=== PATIENT | male | born 1960 | race Caucasian/White ===

== ENCOUNTER 2016-05-07 15:07 | Inpatient (IN) | payer MEDICAID, OTHER ==
[~2016-05-07] VITALS: Ht 170.2 cm; Wt 85.0 kg
[2016-05-07 15:10] VITALS: Ht 170.2 cm; Wt 85.0 kg
[2016-05-07] MEDS ORDERED: KETOROLAC 30 MG INJ IV STA (15:26)
[2016-05-07] MEDS ORDERED: CEFTRIAXONE 1 GM/50 ML (PMX) 50 ML IVPB STA (15:26)
[2016-05-07] MEDS ORDERED: SODIUM CHLORIDE 0.9% 1L BAG IV* STA (15:26)
[2016-05-07] MEDS ORDERED: VANCOMYCIN 1 GM (PMX) 250 ML IVPB ONE (15:30)
[2016-05-07] MEDS ORDERED: DICLOFENAC SODIUM 37.5 MG/ML VIAL IV STA (16:25)
[2016-05-07 16:28] LABS: ADD SCAN DIFF NO
[2016-05-07 16:32] LABS: ADD UMIC YES; URINE BILIRUBIN (Dip) NEGATIVE (NEGATIVE); URINE BLOOD (Dip) NEGATIVE (NEGATIVE); URINE COLOR LT. YELLOW (YELLOW); URINE GLUCOSE (Dip) NEGATIVE (NEGATIVE); URINE KETONES (Dip) NEGATIVE (NEGATIVE); URINE LEUKOCYTE ESTERASE (Dip) 1+ (NEGATIVE); URINE NITRITE (Dip) NEGATIVE (NEGATIVE); URINE TOTAL PROTEIN (Dip) NEGATIVE (NEGATIVE); URINE UROBILINOGEN (Dip) 0.2 E.U./dL (0.1-1.0)
[2016-05-07 16:34] LABS: ABNORMAL IP MESSAGE 1; BASOPHILS % 0.2 % (0.0-2.0); EOSINOPHILS # 0.1 10^3/ul (0.0-0.5); EOSINOPHILS % 0.2 % (0.0-7.0); HEMATOCRIT 41.8 % (42.0-52.0); HEMOGLOBIN 14.6 g/dl (14.0-18.0); LYMPHOCYTES # 2.7 10^3/ul (0.8-2.9); LYMPHOCYTES % 11.7 % (15.0-51.0); MEAN CORPUSCULAR HGB CONC 34.9 g/dl (32.0-37.0); MEAN CORPUSCULAR VOLUME 88.7 fl (82.0-101.0); MEAN PLATELET VOLUME 9.9 fl (7.4-10.4); MONOCYTE # 1.5 10^3/ul (0.3-0.9); MONOCYTES % 6.6 % (0.0-11.0); NEUTROPHIL # 18.6 10^3/ul (1.6-7.5); NEUTROPHILS % 80.9 % (39.0-77.0); PLATELET COUNT 280 10^3/UL (140-415); RED BLOOD COUNT 4.71 10^6/ul (4.70-6.10); RED CELL DISTRIBUTION WIDTH 13.2 % (11.5-14.5)
--- NOTE | 2016-05-07 16:43 | RADRPT ---
PROCEDURE: XR Hand. CLINICAL INDICATION: Right hand pain and swelling. TECHNIQUE: Three views. Frontal, lateral, and oblique images of the right hand were obtained. COMPARISON: No prior studies are available for comparison. 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 There is no other fracture and the re is no dislocation. There is diffuse soft tissue swelling. Articular surfaces are intact. There is no lytic or blastic lesion. There is a ring on the fourth finger which the the patient was unable to remove. There is no other r adiopaque foreign body. IMPRESSION: 1. 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 2. No fracture or dislocation. 3. Diffuse soft tissue swelling. 4. Ring on the fourth finger which the patient was unable to remove. 5. No other radiopaque foreign body. RPTAT: QQ .Niall Camargo MD, Date Time Electronically viewed and signed by .Niall Camargo MD, on 05/07/2016 16:42 .R/
[2016-05-07 16:44] LABS: ALBUMIN 4.5 g/dl (3.3-4.9); CHLORIDE 98 mmol/L (97-110)
[2016-05-07 16:45] LABS: INR 1.12; POTASSIUM 3.8 mmol/L (3.5-5.1); PROTIME 14.4 Sec (12.2-14.2); PT RATIO 1.1; SODIUM 139 mmol/L (135-144)
[2016-05-07 16:47] LABS: ALBUMIN/GLOBULIN RATIO 1.45; ANION GAP 20 (8-16); BACTERIA,URINE FEW; BILIRUBIN,INDIRECT 1.2 mg/dl (0-1.1); BILIRUBIN,TOTAL 1.2 mg/dl (0.2-1.3); CARBON DIOXIDE 25 mmol/L (21-31); CREATININE 0.85 mg/dl (0.61-1.24); TOTAL PROTEIN 7.6 g/dl (6.1-8.1); TRANSITIONAL EPI CELLS,URINE OCCASIONAL; URINE RBCS NONE SEEN /HPF ([, 0])
[2016-05-07 16:48] LABS: ALANINE AMINOTRANSFERASE 64 IU/L (13-69); ALKALINE PHOSPHATASE 91 IU/L (42-121); ASPARTATE AMINO TRANSFERASE 131 IU/L (15-46); BLOOD UREA NITROGEN 16 mg/dl (7-20); CALCIUM 9.4 mg/dl (8.4-10.2); GLUCOSE 96 mg/dl (70-220)
[2016-05-07 16:57] LABS: PARTIAL THROMBOPLASTIN TIME 28.8 Sec (25.0-35.0)
[2016-05-07] MEDS ORDERED: ALPRAZOLAM 0.25 MG TAB PO ONE (17:00)
[2016-05-07 17:07] LABS: TROPONIN-I < 0.012 ng/ml (0.00-0.12)
[2016-05-07] MEDS ORDERED: ACETAMINOPHEN 325 MG TAB PO PRN ×2 (18:00→20:30)
[2016-05-07] MEDS ORDERED: ONDANSETRON 4 MG INJ IV PRN ×2 (18:00→20:30)
--- NOTE | 2016-05-07 19:29 | ERA ---
ER Documentation Chief Complaint Date/Time DATE: 05/07/16 TIME: 19:24 Chief Complaint BIB RA PT with R hand pain and swelling X 2 days, denies fevers. HPI This 55-year-old male presents with right hand pain and swelling for the last 2 days and is increasing. States that he injected methamphetamines into an area around that hand but thinks he did not go well because he did not get high from it and thinks it went intramuscularly. Is increasing hand swelling and also has pain tracking up his arm. Denies any fevers or chills. ROS All systems reviewed and are negative except as per history of present illness. Allergies Allergies: Coded Allergies: ketorolac (Verified Allergy, Intermediate, rash, 05/07/16) sumatriptan (Verified Allergy, Mild, 05/07/16) Phenothiazines (Unverified Allergy, Unknown, 05/07/16) PMhx/Soc History of Surgery: Yes (Topnsillectomy.) Anesthesia Reaction: No Hx Neurological Disorder: No Hx Respiratory Disorders: No Hx Cardiac Disorders: No Hx Psychiatric Problems: Yes (Anxiety, ADHD) Hx Miscellaneous Medical Probl: No Hx Alcohol Use: No Hx Substance Use: Yes (Meth) Hx Tobacco Use: Yes Smoking Status: Light tobacco smoker Physical Exam Vitals Vital Signs Date Time Temp Pulse Resp B/P Pulse Ox O2 Delivery O2 Flow Rate FiO2 05/07/16 15:10 98.3 110 18 118/80 96 Physical Exam Const: [] Head: Atraumatic Eyes: Normal Conjunctiva ENT: Normal External Ears, Nose and Mouth. Neck: Full range of motion..~ No meningismus. Resp: Clear to auscultation bilaterally Cardio: Regular rate and rhythm, no murmurs Abd: Soft, non tender, non distended. Normal bowel sounds Skin: No petechiae or rashes Back: No midline or flank tenderness Ext: No cyanosis, or edema Neur: Awake and alert Psych: Normal Mood and Affect Result Diagram: 05/07/16 1610 05/07/16 1610 Results 24 hrs Laboratory Tests Test 05/07/16 16:10 Activated Partial Thromboplast Time 28.8Sec Alanine Aminotransferase (ALT/SGPT) 64IU/L Albumin 4.5g/dl Albumin/Globulin Ratio 1.45 Alkaline Phosphatase 91IU/L Anion Gap 20 Aspartate Amino Transf (AST/SGOT) 131IU/L Basophils # 0.010^3/ul Basophils % 0.2% Blood Urea Nitrogen 16mg/dl Calcium Level 9.4mg/dl Carbon Dioxide Level 25mmol/L Chloride Level 98mmol/L Creatinine 0.85mg/dl Direct Bilirubin 0.00mg/dl Eosinophils # 0.110^3/ul Eosinophils % 0.2% Globulin 3.10g/dl Glucose Level 96mg/dl Hematocrit 41.8% Hemoglobin 14.6g/dl INR International Normalized Ratio 1.12 Indirect Bilirubin 1.2mg/dl Lactic Acid Level 1.7mmol/L Lymphocytes # 2.710^3/ul Lymphocytes % 11.7% Mean Corpuscular Hemoglobin 31.0pg Mean Corpuscular Hemoglobin Concent 34.9g/dl Mean Corpuscular Volume 88.7fl Mean Platelet Volume 9.9fl Monocytes # 1.510^3/ul Monocytes % 6.6% Neutrophils # 18.610^3/ul Neutrophils % 80.9% Nucleated Red Blood Cells # 0.010^3/ul Nucleated Red Blood Cells % 0.0/100WBC Platelet Count 15281^3/UL Potassium Level 3.8mmol/L Prothrombin Time 14.4Sec Prothrombin Time Ratio 1.1 Red Blood Count 4.7110^6/ul Red Cell Distribution Width 13.2% Sodium Level 139mmol/L Total Bilirubin 1.2mg/dl Total Protein 7.6g/dl Troponin I < 0.012ng/ml Urine Bacteria FEW Urine Bilirubin NEGATIVE Urine Clarity CLEAR Urine Color LT. YELLOW Urine Glucose NEGATIVE% Urine Hemoglobin NEGATIVE Urine Ketones NEGATIVE Urine Leukocyte Esterase 1+ Urine Microscopic RBC NONE SEEN/HPF Urine Microscopic WBC 10-25/HPF Urine Nitrite NEGATIVE Urine Specific [place] 1.010 Urine Total Protein NEGATIVE Urine Transitional Epithelial Cells OCCASIONAL Urine Urobilinogen 0.2 E.U./dL Urine pH 5.5 White Blood Count 23.010^3/ul Current Medications Medications (Trade) Dose Ordered Sig/Yared Route PRN Reason Start Time Stop Time Status Last Admin Dose Admin Sodium Chloride 2680 ml 2,680 ml BOLUS OVER 2 HOURS STAT IV* 05/07/16 15:26 05/07/16 15:29 DC 05/07/16 16:32 Vancomycin HCl 250 ml @ 125 mls/hr ONCE ONCE IVPB 05/07/16 15:30 05/07/16 17:29 DC 05/07/16 17:03 Ceftriaxone Sodium (Rocephin) 50 ml @ 100 mls/hr ONCE STAT IVPB 05/07/16 15:26 05/07/16 15:55 DC 05/07/16 16:32 Ketorolac Tromethamine (Toradol) 30 mg ONCE STAT IV 05/07/16 15:26 05/07/16 15:30 DC Diclofenac Sodium (Dyloject) 37.5 mg ONCE STAT IV 05/07/16 16:25 05/07/16 16:26 DC 05/07/16 16:32 Alprazolam (Xanax) 0.25 mg ONCE ONCE PO 05/07/16 17:00 05/07/16 17:01 DC 05/07/16 17:03 Procedures/MDM 55-year-old male with right hand cellulitis. I do not believe this is currently amenable to outpatient treatment. More important issues the patient refuses to remove his ring on his right ring finger. He absolutely refuses to use the ring cutter to get it off but he does not even want to take the ring off even though I informed him that he could lose his finger because of it. He does have very high white count as well as tachycardia on arrival. This technically gives him sepsis criteria. He was given vancomycin and Rocephin. He is also given IV fluids. Believe these interventions will prevent progression to septic shock although he will be monitored for this in the hospital.. Spoke with Dr. Hernandez will be admitting the patient to the medical surgical floor. Critical care time 33 minutes: This includes treatment of developing sepsis and possible limb threatening injury, careful fluid administration, immediate antibiotic administration, chart reviewed, discussion with patient admitting doctor, multiple visits the patient's bedside to reassess status and try to convince him to remove his ring. This does not include any billable procedures. Departure Diagnosis: Primary Impression: Sepsis due to cellulitis Additional Impression: Right arm cellulitis Condition: Serious WINNIE VELA DO May 07, 2016 19:29
[2016-05-07 20:00] VITALS: BP 122/55; PULSE 82; RESP 20
[2016-05-07] MEDS ORDERED: OLAN10TA7 PO (20:01)
[2016-05-07] MEDS ORDERED: TRAZ150T65 PO (20:02)
[2016-05-07] MEDS ORDERED: LORA-444 PO (20:02)
[2016-05-07] MEDS ORDERED: NORT75CA PO (20:03)
[2016-05-07] MEDS ORDERED: TEMA30CA6 PO (20:03)
[2016-05-07] MEDS ORDERED: GABA300C16 PO (20:03)
[2016-05-07] MEDS ORDERED: NACL 0.9% 3 ML SYG IV SCH (20:30)
[2016-05-07] MEDS ORDERED: NITROGLYCERIN (SL) 0.4 MG TAB SL PRN (20:30)
[2016-05-07] MEDS ORDERED: hydrALAzine 20 MG INJ IV PRN (20:30)
[2016-05-07] MEDS ORDERED: morphine 2 MG INJ IV PRN (20:30)
[2016-05-07] MEDS ORDERED: ALBUTEROL/IPRATROPIUM (NEB) 3 ML AMP HHN PRN (20:30)
[2016-05-07] MEDS ORDERED: DOCUSATE SODIUM 100 MG CAP PO PRN (20:30)
[2016-05-07] MEDS ORDERED: VANCOMYCIN IV PER PHARMACY XX SCH (20:30)
[2016-05-07] MEDS: SOD CHLORIDE 0.9% 1,000 ML IV SCH (21:31)
[2016-05-07] MEDS: GABAPENTIN 300 MG CAP PO SCH (21:31)
[2016-05-07] MEDS: traZODone 50 MG TAB PO SCH (21:31)
[2016-05-07] MEDS: OLANZAPINE 5 MG TAB PO SCH (21:31)
[2016-05-07] MEDS: HEPARIN 5,000 UNIT/0.5 ML SYG SC SCH (21:32)
[2016-05-07] MEDS: HYDROCODONE/APAP (5/325) TAB PO PRN (22:09)
[2016-05-07] MEDS: CEFEPIME 2GM/50 ML (PMX) 50 ML IVPB SCH (23:48)
[2016-05-07] MEDS: NORTRIPTYLINE 25 MG CAP PO SCH (23:49)
[2016-05-08] MEDS: PANTOPRAZOLE (EC) 40 MG TAB PO SCH (05:22)
[2016-05-08] MEDS: SOD CHLORIDE 0.9% 1,000 ML IV SCH ×3 (05:40→23:05)
--- NOTE | 2016-05-08 06:10 | HP ---
DATE OF ADMISSION: 05/07/2016 The patient was seen and examined by me on 05/07/2016 at 8:30 p.m. CHIEF COMPLAINT: Right hand pain. HISTORY OF PRESENT ILLNESS: A 55-year-old male with a past medical history of ADHD, anxiety and mili g abuse, who presents with right hand pain. The patient states the swelling and pain have been melba g on for the last 2 days. It has been getting worse in intensity. He does admit to injecting metham phetamine into the area around the hand. He feels like he did not get the normal high that he deisy lly gets and feels like he may have missed the artery and may have gone intramuscularly, and hence rissa nichols has the right hand pain and swelling. No fever or chills, no upper or lower GI bleeding, no nause a or vomiting, no diarrhea, no constipation. PAST MEDICAL HISTORY: As stated above. HOME MEDICATIONS: 1. Gabapentin 300 mg b.i.d. 2. Ativan 2 mg t.i.d. 3. Nortriptyline 75 mg at bedtime. 4. Zyprexa 10 mg at bedtime. 5. Restoril 30 mg at bedtime p.r.n. 6. Trazodone 150 mg at bedtime. ALLERGIES 1. TORADOL. 2. SUMATRIPTAN. 3. PHENOTHIAZINES. PAST SURGICAL HISTORY: Tonsillectomy in the past. FAMILY HISTORY: Noncontributory. SOCIAL HISTORY: He uses meth and smokes cigarettes. Denies any alcohol use. PHYSICAL EXAMINATION: VITAL SIGNS: Today T-max 98.3, pulse 110, respirations 18, blood pressure 118/80, saturating at 96% on room air. GENERAL: The patient is lying in bed, answering questions, in no acute distress. HEENT: Pupils are equal, round, and react to light. Extraocular muscles intact. NECK: Supple. No thyromegaly. LUNGS: Clear to auscultation bilaterally. CARDIOVASCULAR: S1, S2 heard. No rubs or gallops. ABDOMEN: Soft, nontender, nondistended. Normal bowel sounds. No rebound or guarding. MUSCULOSKELETAL: The right hand is red, swollen and tender to palpation on the dorsal aspect. Appe ars to be neurovascularly intact. Otherwise no lower extremity edema bilaterally. NEUROLOGIC: No focal deficits. LABORATORY: WBC 23.0, hemoglobin 14.6, hematocrit 41.8, platelets 280. Basic metabolic panel is no rmal. LFTs show an indirect bilirubin of 1.2 and AST of 131, but the rest of the LFTs are normal. Lactic acid is normal. UA shows 1+ leukocyte esterase positive, few bacteria, negative nitrites. X-ray of the right hand showed old amputation of the second distal phalanx proximally, but no fractu res or dislocation. There is diffuse soft tissue swelling. Ring on the 4th finger was unable to be removed. No other radiopaque foreign body. ASSESSMENT AND PLAN: A 55-year-old male coming in with right hand pain and swelling after trying to inject methamphetamine into the area, with signs of cellulitis. 1. Right hand pain with signs of cellulitis. Will start the patient on broad spectrum antibiotics, get an infectious disease consult. Follow up culture results. Check TSH, A1c, lipid panel. Tylen ol p.r.n. pain and fevers. Morphine and [place] p.r.n. pain. 2. History of ADHD and anxiety. Continue gabapentin, nortriptyline and Zyprexa medications, as wel l as trazodone. 3. Gastrointestinal prophylaxis. PPI. 4. Deep venous thrombosis prophylaxis. Heparin subcutaneously. Dictated By: JONNATHAN ARAGON Conf#: [id number] DID#: [id number]
[2016-05-08 06:30] LABS: ADD SCAN DIFF NO
[2016-05-08 06:48] LABS: BASOPHILS % 0.2 % (0.0-2.0); EOSINOPHILS # 0.1 10^3/ul (0.0-0.5); HEMATOCRIT 35.4 % (42.0-52.0); LYMPHOCYTES # 2.2 10^3/ul (0.8-2.9); LYMPHOCYTES % 17.7 % (15.0-51.0); MEAN CORPUSCULAR HGB CONC 33.9 g/dl (32.0-37.0); MEAN CORPUSCULAR VOLUME 91.5 fl (82.0-101.0); MEAN PLATELET VOLUME 10.7 fl (7.4-10.4); MONOCYTE # 1.1 10^3/ul (0.3-0.9); MONOCYTES % 8.7 % (0.0-11.0); NEUTROPHIL # 9.1 10^3/ul (1.6-7.5); NEUTROPHILS % 71.9 % (39.0-77.0); PLATELET COUNT 203 10^3/UL (140-415); RED BLOOD COUNT 3.87 10^6/ul (4.70-6.10); RED CELL DISTRIBUTION WIDTH 13.7 % (11.5-14.5); WHITE BLOOD COUNT 12.7 10^3/ul (4.8-10.8)
[2016-05-08 06:59] LABS: INR 1.2; PROTIME 15.3 Sec (12.2-14.2); PT RATIO 1.2
[2016-05-08 07:01] LABS: PARTIAL THROMBOPLASTIN TIME 31.8 Sec (25.0-35.0)
[2016-05-08 07:02] LABS: POTASSIUM 3.7 mmol/L (3.5-5.1)
[2016-05-08 07:05] LABS: CREATININE 0.77 mg/dl (0.61-1.24)
[2016-05-08 07:06] LABS: CALCIUM 8.1 mg/dl (8.4-10.2); CHOL/HDL RATIO 3.5 RATIO; MAGNESIUM 1.7 mg/dl (1.7-2.5); PHOSPHORUS 3.2 mg/dl (2.5-4.9)
[2016-05-08 08:16] LABS: THYROID STIMULATING HORMONE 0.899 MIU/L (0.465-4.680)
[2016-05-08 08:37] VITALS: BP 97/64; RESP 20
[2016-05-08] MEDS: CEFEPIME 2GM/50 ML (PMX) 50 ML IVPB SCH (09:14)
[2016-05-08] MEDS: GABAPENTIN 300 MG CAP PO SCH ×2 (09:14→20:04)
[2016-05-08] MEDS: HEPARIN 5,000 UNIT/0.5 ML SYG SC SCH ×2 (09:17→20:11)
[2016-05-08] MEDS: VANCOMYCIN 1 GM in NS 250 ML IVPB SCH ×2 (10:25→23:06)
--- NOTE | 2016-05-08 17:37 | CONS ---
Date/Time of Note Date/Time of Note DATE: 05/08/16 TIME: 17:34 Assessment/Plan Assessment/Plan Chief Complaint/Hosp Course R hand cellulitis 2 to drug injection Substance abuse Hx anxiety Abx: Vanco Cefepime Plan: Change Cefepime to Rocephin, continue Vanco, keep extremity elevated, may need hand surgery eval JAIME pt/staff JAIME Mao Problems: Consultation Date/Type/Reason Admit Date/Time May 07, 2016 at 17:59 Type of Consultation: ID Referring Provider: JONNATHAN CHRISTIANSON Social History Smoking Status: Light tobacco smoker Exam/Review of Systems Vital Signs Vitals Vital Signs Date Time Temp Pulse Resp B/P Pulse Ox O2 Delivery O2 Flow Rate FiO2 05/08/16 08:37 98.4 80 20 97/64 96 05/07/16 20:00 Room Air Intake and Output 05/07/16 05/07/16 05/08/16 15:00 23:00 07:00 Intake Total 50 ml 1500 ml Balance 50 ml 1500 ml Results Result Diagram: 05/08/1628 05/08/1628 Results 24 hrs Laboratory Tests Test 05/07/16 19:25 05/08/16 05:28 Lactic Acid Level 1.8 0.7 Activated Partial Thromboplast Time 31.8 Anion Gap 13 # Basophils # 0.0 Basophils % 0.2 Blood Urea Nitrogen 17 Calcium Level 8.1 L Carbon Dioxide Level 24 Chloride Level 108 # Cholesterol Level 144 Cholesterol/HDL Ratio 3.5 Creatinine 0.77 Eosinophils # 0.1 Eosinophils % 1.0 Free Thyroxine 0.95 Glucose Level 106 HDL Cholesterol 41 Hematocrit 35.4 L Hemoglobin 12.0 L Hemoglobin A1c 5.3 INR International Normalized Ratio 1.20 LDL Cholesterol, Calculated 89 Lymphocytes # 2.2 Lymphocytes % 17.7 Magnesium Level 1.7 Mean Corpuscular Hemoglobin 31.0 Mean Corpuscular Hemoglobin Concent 33.9 Mean Corpuscular Volume 91.5 Mean Platelet Volume 10.7 H Monocytes # 1.1 H Monocytes % 8.7 Neutrophils # 9.1 H Neutrophils % 71.9 Nucleated Red Blood Cells # 0.0 Nucleated Red Blood Cells % 0.0 Phosphorus Level 3.2 Platelet Count 203 # Potassium Level 3.7 Prothrombin Time 15.3 H Prothrombin Time Ratio 1.2 Red Blood Count 3.87 L Red Cell Distribution Width 13.7 Sodium Level 141 Thyroid Stimulating Hormone (TSH) 0.899 Triglycerides Level 69 White Blood Count 12.7 #H Medications Medications Current Medications Ondansetron HCl (Zofran Inj) 4 mg Q6H PRN IV NAUSEA AND/OR VOMITING; Start at 20:30 Acetaminophen (Tylenol Tab) 650 mg Q6H PRN PO PAIN LEVEL 1-3 OR FEVER; Start at 20:30 Acetaminophen/ Hydrocodone Bitart ([place] (5/325)) 1 tab Q6H PRN PO MODERATE PAIN LEVEL 4-6 Last administered on 05/07/16 22:09; Admin Dose 1 TAB; Start at 20:30 Morphine Sulfate (morphine) 2 mg Q4H PRN IV SEVERE PAIN LEVEL 7-10; Start 05/07 at 20:30 Docusate Sodium (Colace) 100 mg Q12H PRN PO CONSTIPATION; Start 05/07/16 at 20: 30 Sodium Biphosphate/ Sodium Phosphate (Fleet Enema) 133 ml DAILY PRN [place] CONSTIPATION; Start 05/07/16 at 20:30 Pantoprazole (Protonix Tab) 40 mg DAILY@06 PO Last administered on 05/08/16 05 :22; Admin Dose 40 MG; Start 05/08/16 at 06:00 Heparin Sodium (Porcine) (Heparin (5000 Units/0.5 ml)) 5,000 unit Q12 SC Last administered on 05/08/16 09:17; Admin Dose 5,000 UNIT; Start 05/07/16 at 21:00 Lorazepam 0.5 mg 0.5 mg Q6H PRN IV ANXIETY; Start 05/07/16 at 20:30 Sodium Chloride (NS) 1,000 ml @ 100 mls/hr Q10H IV Last administered on 21:31; Admin Dose 100 MLS/HR; Start 05/07/16 at 20:08 Vancomycin HCl (Vanco Iv Per Pharmacy) VANCOMYCIN PER PHARMACY NOTE XX ; Start 05/07/16 at 20:30 Hydralazine HCl (Apresoline) 10 mg Q6H PRN IV ELEVATED BLOOD PRESSURE; Start at 20:30 Clonidine (Catapres) 0.1 mg Q6H PRN PO ELEVATED BLOOD PRESSURE; Start 05/07/16 at 20:30 Nitroglycerin (Nitroglycerin (Sl Tab) 0.4 Mg) 1 tab Q5M PRN SL ANGINA; Start at 20:30 Gabapentin (Neurontin) 300 mg BID PO Last administered on 05/08/16 09:14; Admin Dose 300 MG; Start 05/07/16 at 21:00 Nortriptyline HCl (Aventyl) 75 mg HS PO Last administered on 05/07/16 23:49; Admin Dose 75 MG; Start 05/07/16 at 21:00 Olanzapine (Zyprexa) 10 mg QHS PO Last administered on 05/07/16 21:31; Admin Dose 10 MG; Start 05/07/16 at 21:00 Trazodone HCl 150 mg 150 mg QHS PO Last administered on 05/07/16 21:31; Admin Dose 150 MG; Start 05/07/16 at 21:00 Cefepime HCl 50 ml @ 100 mls/hr Q12 IVPB Last administered on 05/08/16 09:14 ; Admin Dose 100 MLS/HR; Start 05/07/16 at 21:00 Vancomycin HCl (Vancocin) 250 ml @ 125 mls/hr Q12H IVPB Last administered on 10:25; Admin Dose 125 MLS/HR; Start 05/08/16 at 11:00 Miscellaneous Information (*Rx Drug Level Order Reminder*) VANCOMYCIN TROUGH AT 1000 ONCE ONCE XX ; Start 05/09/16 at 10:00; Stop 05/09/16 at 10:01 MAURIZIO CHRISTENSEN NP May 08, 2016 17:37
[2016-05-08] MEDS: CEFTRIAXONE 1 GM/50 ML (PMX) 50 ML IVPB SCH (17:49)
[2016-05-08] MEDS: traZODone 50 MG TAB PO SCH (20:04)
[2016-05-08] MEDS: NORTRIPTYLINE 25 MG CAP PO SCH (20:05)
[2016-05-08] MEDS: OLANZAPINE 5 MG TAB PO SCH (20:15)
[2016-05-08] MEDS: HYDROCODONE/APAP (5/325) TAB PO PRN (20:15)
[2016-05-08 21:23] VITALS: BP 110/69; RESP 20
[2016-05-08] MEDS: ZOLPIDEM 5 MG TAB PO PRN (23:06)
[2016-05-09] MEDS: SOD CHLORIDE 0.9% 1,000 ML IV SCH ×2 (01:09→17:29)
[2016-05-09] MEDS: PANTOPRAZOLE (EC) 40 MG TAB PO SCH (05:18)
--- NOTE | 2016-05-09 06:38 | CONS ---
DATE OF ADMISSION: 05/07/2016 DATE OF CONSULTATION: INFECTIOUS DISEASE CONSULTATION I am seeing this patient for Dr. Kale Jones. REQUESTING PHYSICIAN: Dr. Jeanie Hernandez. HISTORY OF PRESENT ILLNESS: The patient is a 55-year-old white male who was admitted on with a chief complaint of right hand pain x2 days' duration. The patient injected amphetam wilmar into his hand and began having progressive swelling and pain. Upon arrival, his white count wa s originally 12,700, rapidly going to 23,000. The pulse was 110. The patient had x-ray of his red, diffusely swollen hand which revealed an old amputation of the distal phalanx of the second digit. The patient was admitted to the hospital and given intravenous vancomycin and cefepime. Subsequent ly, the cefepime was changed to ceftriaxone. The patient has been afebrile since admission. PAST MEDICAL HISTORY: ADHD, drug abuse, and tobacco use. ALLERGIES: HE HAS ALLERGIES TO 1. TORADOL. 2. SUMATRIPTAN. 3. PHENOTHIAZINES. PAST SURGICAL HISTORY: Include amputation of the distal phalanx of the right index finger. MEDICATIONS: Include 1. Gabapentin 300 mg twice a day. 2. Ativan 200 mg t.i.d. 3. Nortriptyline 75 mg daily. 4. Zyprexa 10 mg at bedtime. 5. Restoril 30 mg at bedtime. 6. Trazodone 150 mg at bedtime. REVIEW OF SYSTEMS: Cannot be obtained because the patient has received his bedtime medication and i s not in sufficient position of his faculties to give a reasonable history or review of systems. PHYSICAL EXAMINATION GENERAL: Reveals a grossly obese white male lying in bed, snoring initially and with his right hand elevated on a pillow. VITAL SIGNS: Blood pressure 110/69, pulse 80, respirations 20. He is afebrile. HEENT: The pupils are reactive. NECK: Obese. CHEST: Clear to auscultation. HEART: Regular. ABDOMEN: Obese, soft. EXTREMITIES: Reveal diffuse swelling and redness of the right hand. No drainage. There is no peda l edema. INITIAL IMPRESSION 1. Systemic inflammatory response. 2. Cellulitis, right hand. 3. Intravenous drug use. 4. Amphetamine abuse. 5. Psychosis, not otherwise specified. 6. Tobacco use. 7. Obesity. RECOMMENDATIONS: I agree with continuing the ceftriaxone and the vancomycin pending cultures and el evation of the right hand as much as possible and recommend surgical evaluation as he may need incis ion and drainage. Dictated By: Cally DOMINGUEZ/ERMA Conf#: [id number] DID#: [id number]
[2016-05-09] MEDS: LORAZEPAM 2 MG INJ IV PRN ×2 (08:12→15:37)
[2016-05-09] MEDS: GABAPENTIN 300 MG CAP PO SCH ×2 (08:14→20:00)
[2016-05-09] MEDS: HEPARIN 5,000 UNIT/0.5 ML SYG SC SCH ×2 (08:15→20:03)
[2016-05-09 08:26] VITALS: BP 117/73; RESP 19
[2016-05-09 10:46] LABS: ADD SCAN DIFF NO
[2016-05-09 10:58] LABS: BASOPHILS % 0.3 % (0.0-2.0); EOSINOPHILS # 0.2 10^3/ul (0.0-0.5); EOSINOPHILS % 1.3 % (0.0-7.0); HEMATOCRIT 37.1 % (42.0-52.0); HEMOGLOBIN 12.8 g/dl (14.0-18.0); LYMPHOCYTES % 17.2 % (15.0-51.0); MEAN CORPUSCULAR HEMOGLOBIN 30.8 pg (29.0-33.0); MEAN CORPUSCULAR HGB CONC 34.5 g/dl (32.0-37.0); MEAN CORPUSCULAR VOLUME 89.4 fl (82.0-101.0); MONOCYTES % 8.5 % (0.0-11.0); NEUTROPHIL # 8.5 10^3/ul (1.6-7.5); NEUTROPHILS % 72.1 % (39.0-77.0); PLATELET COUNT 229 10^3/UL (140-415); RED BLOOD COUNT 4.15 10^6/ul (4.70-6.10); WHITE BLOOD COUNT 11.8 10^3/ul (4.8-10.8)
[2016-05-09 11:01] LABS: POTASSIUM 3.9 mmol/L (3.5-5.1)
[2016-05-09 11:04] LABS: CREATININE 0.7 mg/dl (0.61-1.24)
[2016-05-09 11:05] LABS: CALCIUM 8.6 mg/dl (8.4-10.2)
[2016-05-09] MEDS: VANCOMYCIN 1 GM in NS 250 ML IVPB SCH (11:48)
[2016-05-09] MEDS: HYDROCODONE/APAP (5/325) TAB PO PRN ×2 (12:55→20:11)
--- NOTE | 2016-05-09 15:15 | PN ---
Date/Time of Note Date/Time of Note DATE: 05/09/16 TIME: 15:08 Assessment/Plan VTE Prophylaxis VTE Prophylaxis Intervention: heparin Lines/Catheters IV Catheter Type (from Nrs): Peripheral IV Urinary Cath still in place: No Assessment/Plan Assessment/Plan A 55-year-old male coming in with right hand pain and swelling after trying to inject methamphetamine into the area, with signs of cellulitis. 1. Sepsis 2/2 Right hand cellulitis 2/2 drug use 2. History of ADHD and anxiety. Continue gabapentin, nortriptyline and Zyprexa medications, as well as trazodone. 3. Multisubstance abuse (Amphetamines, tobacco) 4. Obesity PLAN * Continue abx per ID / appreciate input * Surgical consult * Continue supportive care * Amphetamine / Tobacco cessation counselling done and will continue to be reinforced throughout hospitalization. * farmworker consult for resources to help with drug abuse * Gastrointestinal prophylaxis. PPI. * Deep venous thrombosis prophylaxis. Heparin subcutaneously. Subjective 24 Hr Interval Summary Musculoskeletal: bone/joint pain, swelling Exam/Review of Systems Vital Signs Vitals Vital Signs Date Time Temp Pulse Resp B/P Pulse Ox O2 Delivery O2 Flow Rate FiO2 05/09/16 08:26 97.9 78 19 117/73 94 05/07/16 20:00 Room Air Intake and Output 05/08/16 05/08/16 05/09/16 15:00 23:00 07:00 Intake Total 300 ml 1580 ml 2130 ml Balance 300 ml 1580 ml 2130 ml Exam Constitutional: alert, obese, oriented Psych: no complaints Head: normocephalic Eyes: PERRL ENMT: mucosa pink and moist Neck: supple Respiratory: clear to auscultation Cardiovascular: nl pulses, regular rate and rhythm Gastrointestinal: bowel sounds, non-tender, soft Musculoskeletal: other (hand loks slightly better), swelling, No nl extremities to inspection Extremities: other (The right hand is red, swollen and tender to palpation on the dorsal aspect. Appears to be neurovascularly intact. Otherwise no lower extremity edema bilaterally.) Neurological: nl mental status, nl speech Results Result Diagram: 05/09/16 1030 05/09/16 1030 Results 24 hrs Laboratory Tests Test 05/09/16 10:30 Anion Gap 13 Basophils # 0.0 Basophils % 0.3 Blood Urea Nitrogen 11 Calcium Level 8.6 Carbon Dioxide Level 24 Chloride Level 108 Creatinine 0.70 Eosinophils # 0.2 Eosinophils % 1.3 Glucose Level 106 Hematocrit 37.1 L Hemoglobin 12.8 L Lymphocytes # 2.0 Lymphocytes % 17.2 Mean Corpuscular Hemoglobin 30.8 Mean Corpuscular Hemoglobin Concent 34.5 Mean Corpuscular Volume 89.4 Mean Platelet Volume 10.0 Monocytes # 1.0 H Monocytes % 8.5 Neutrophils # 8.5 H Neutrophils % 72.1 Nucleated Red Blood Cells # 0.0 Nucleated Red Blood Cells % 0.0 Platelet Count 229 Potassium Level 3.9 Red Blood Count 4.15 L Red Cell Distribution Width 13.0 Sodium Level 141 Vancomycin Level Trough 8.3 L White Blood Count 11.8 H Medications Medications Current Medications Ondansetron HCl (Zofran Inj) 4 mg Q6H PRN IV NAUSEA AND/OR VOMITING; Start at 20:30 Acetaminophen (Tylenol Tab) 650 mg Q6H PRN PO PAIN LEVEL 1-3 OR FEVER; Start at 20:30 Acetaminophen/ Hydrocodone Bitart ([place] (5/325)) 1 tab Q6H PRN PO MODERATE PAIN LEVEL 4-6 Last administered on 05/09/16 12:55; Admin Dose 1 TAB; Start at 20:30 Morphine Sulfate (morphine) 2 mg Q4H PRN IV SEVERE PAIN LEVEL 7-10; Start 05/07 at 20:30 Docusate Sodium (Colace) 100 mg Q12H PRN PO CONSTIPATION; Start 05/07/16 at 20: 30 Sodium Biphosphate/ Sodium Phosphate (Fleet Enema) 133 ml DAILY PRN [place] CONSTIPATION; Start 05/07/16 at 20:30 Pantoprazole (Protonix Tab) 40 mg DAILY@06 PO Last administered on 05/09/16 05 :18; Admin Dose 40 MG; Start 05/08/16 at 06:00 Heparin Sodium (Porcine) (Heparin (5000 Units/0.5 ml)) 5,000 unit Q12 SC Last administered on 05/09/16 08:15; Admin Dose 5,000 UNIT; Start 05/07/16 at 21:00 Lorazepam 0.5 mg 0.5 mg Q6H PRN IV ANXIETY Last administered on 05/09/16 08:12 ; Admin Dose 0.5 MG; Start 05/07/16 at 20:30 Sodium Chloride (NS) 1,000 ml @ 100 mls/hr Q10H IV Last administered on 23:05; Admin Dose 100 MLS/HR; Start 05/07/16 at 20:08 Vancomycin HCl (Vanco Iv Per Pharmacy) VANCOMYCIN PER PHARMACY NOTE XX ; Start 05/07/16 at 20:30 Hydralazine HCl (Apresoline) 10 mg Q6H PRN IV ELEVATED BLOOD PRESSURE; Start at 20:30 Clonidine (Catapres) 0.1 mg Q6H PRN PO ELEVATED BLOOD PRESSURE; Start 05/07/16 at 20:30 Nitroglycerin (Nitroglycerin (Sl Tab) 0.4 Mg) 1 tab Q5M PRN SL ANGINA; Start at 20:30 Gabapentin (Neurontin) 300 mg BID PO Last administered on 05/09/16 08:14; Admin Dose 300 MG; Start 05/07/16 at 21:00 Nortriptyline HCl (Aventyl) 75 mg HS PO Last administered on 05/08/16 20:05; Admin Dose 75 MG; Start 05/07/16 at 21:00 Olanzapine (Zyprexa) 10 mg QHS PO Last administered on 05/08/16 20:15; Admin Dose 10 MG; Start 05/07/16 at 21:00 Trazodone HCl 150 mg 150 mg QHS PO Last administered on 05/08/16 20:04; Admin Dose 150 MG; Start 05/07/16 at 21:00 Vancomycin HCl 250 ml @ 125 mls/hr Q12H IVPB Last administered on 05/09/16 11 :48; Admin Dose 125 MLS/HR; Start 05/08/16 at 11:00; Stop 05/09/16 at 18:00 Ceftriaxone Sodium 50 ml @ 100 mls/hr Q24H IVPB Last administered on 17:49; Admin Dose 100 MLS/HR; Start 05/08/16 at 18:00 Vancomycin HCl/ Sodium Chloride (Vancocin/NS) 250 ml @ 83.333 mls/ hr Q12H IVPB ; Start 05/09/16 at 23:00 Procedures Procedures PROCEDURE: XR Hand. CLINICAL INDICATION: Right hand pain and swelling. TECHNIQUE: Three views. Frontal, lateral, and oblique images of the right hand were obtained. COMPARISON: No prior studies are available for comparison. 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 There is no other fracture and there is no dislocation. There is diffuse soft tissue swelling. Articular surfaces are intact. There is no lytic or blastic lesion. There is a ring on the fourth finger which the the patient was unable to remove. There is no other radiopaque foreign body. IMPRESSION: 1. 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 2. No fracture or dislocation. 3. Diffuse soft tissue swelling. 4. Ring on the fourth finger which the patient was unable to remove. 5. No other radiopaque foreign body. RPTAT: QQ .Niall Camargo MD, Date Time Electronically viewed and signed by .Niall Camargo MD, MD on 05/07/2016 16:42 .R/ CC: WINNIE VELA BOLATITO M. May 09, 2016 15:15
[2016-05-09] MEDS: NICOTINE (21 MG/24 HR) PATCH TRANSDERM SCH (16:00)
[2016-05-09] MEDS: CEFTRIAXONE 1 GM/50 ML (PMX) 50 ML IVPB SCH (17:29)
[2016-05-09] MEDS: CHLORDIAZEPOXIDE 25 MG CAP PO SCH (17:45)
--- NOTE | 2016-05-09 18:10 | PN ---
DATE: 05/09/2016 SUBJECTIVE: The patient is alert, lying comfortably in bed. Complaining of right hand pain. He is in no distress. No fevers. ANTIMICROBIALS: 1. Vancomycin. 2. Rocephin. PHYSICAL EXAMINATION: GENERAL: Well-developed, middle-aged white man who is alert, in no distress. HEENT: Head atraumatic, normocephalic. Sclerae anicteric. Buccal mucosa pink. NECK: Supple. CHEST: Rise symmetrical. Breath sounds clear. HEART: S1, S2. ABDOMEN: Soft. Bowel tones present. EXTREMITIES: With right hand erythema and edema. ASSESSMENT: 1. Right hand cellulitis. 2. Systemic inflammatory response syndrome secondary to right hand cellulitis. 3. Polysubstance abuse. 4. Obesity. 5. History of psychiatric problems. PLAN: The patient remains stable. Continue present care, antibiotics. Keep right hand elevated on 3 pill ows at all times. Await for clinical improvement. May need hand surgery evaluation. Dictated By: MAURIZIO CHRISTENSEN GREEN INSPECTOR for BANDAR RICHARDSON/ERMA Conf#: [id number] DID#: [id number]
[2016-05-09] MEDS: OLANZAPINE 5 MG TAB PO SCH (20:01)
[2016-05-09] MEDS: traZODone 50 MG TAB PO SCH (20:01)
[2016-05-09] MEDS: NORTRIPTYLINE 25 MG CAP PO SCH (20:01)
[2016-05-09 20:28] VITALS: BP 118/74; RESP 18
[2016-05-09] MEDS ORDERED: CHLORDIAZEPOXIDE 25 MG CAP PO SCH (21:00)
[2016-05-09] MEDS: VANCOMYCIN 1.5 GM in SOD CHLORIDE 0.9% 250 ML IVPB SCH (22:10)
[2016-05-10] MEDS: ZOLPIDEM 5 MG TAB PO PRN (00:16)
[2016-05-10] MEDS: HYDROCODONE/APAP (5/325) TAB PO PRN (05:15)
[2016-05-10] MEDS: PANTOPRAZOLE (EC) 40 MG TAB PO SCH (05:15)
[2016-05-10 05:19] LABS: ADD SCAN DIFF NO
[2016-05-10 05:22] LABS: BASOPHIL # 0.1 10^3/ul (0.0-0.1); BASOPHILS % 0.6 % (0.0-2.0); EOSINOPHILS # 0.2 10^3/ul (0.0-0.5); EOSINOPHILS % 1.9 % (0.0-7.0); HEMATOCRIT 36.9 % (42.0-52.0); HEMOGLOBIN 12.9 g/dl (14.0-18.0); LYMPHOCYTES # 2.6 10^3/ul (0.8-2.9); LYMPHOCYTES % 29.6 % (15.0-51.0); MEAN CORPUSCULAR HEMOGLOBIN 31.2 pg (29.0-33.0); MEAN CORPUSCULAR VOLUME 89.1 fl (82.0-101.0); MEAN PLATELET VOLUME 10.1 fl (7.4-10.4); MONOCYTE # 0.8 10^3/ul (0.3-0.9); MONOCYTES % 8.4 % (0.0-11.0); NEUTROPHIL # 5.2 10^3/ul (1.6-7.5); NEUTROPHILS % 58.5 % (39.0-77.0); PLATELET COUNT 246 10^3/UL (140-415); RED BLOOD COUNT 4.14 10^6/ul (4.70-6.10); RED CELL DISTRIBUTION WIDTH 12.8 % (11.5-14.5); WHITE BLOOD COUNT 8.9 10^3/ul (4.8-10.8)
[2016-05-10 05:51] LABS: POTASSIUM 3.7 mmol/L (3.5-5.1)
[2016-05-10 05:53] LABS: CREATININE 0.74 mg/dl (0.61-1.24)
[2016-05-10 05:54] LABS: CALCIUM 8.4 mg/dl (8.4-10.2)
[2016-05-10 07:51] VITALS: BP 107/60; RESP 16
[2016-05-10] MEDS: SOD CHLORIDE 0.9% 1,000 ML IV SCH ×2 (08:08→18:07)
[2016-05-10] MEDS: CHLORDIAZEPOXIDE 25 MG CAP PO SCH ×3 (08:41→20:48)
[2016-05-10] MEDS: GABAPENTIN 300 MG CAP PO SCH ×2 (08:42→20:48)
[2016-05-10] MEDS: HEPARIN 5,000 UNIT/0.5 ML SYG SC SCH ×2 (08:43→20:50)
[2016-05-10] MEDS: NICOTINE (21 MG/24 HR) PATCH TRANSDERM SCH (08:47)
[2016-05-10] MEDS: LORAZEPAM 2 MG INJ IV PRN ×3 (09:07→22:36)
[2016-05-10] MEDS: VANCOMYCIN 1.5 GM in SOD CHLORIDE 0.9% 250 ML IVPB SCH ×2 (11:16→22:38)
--- NOTE | 2016-05-10 14:05 | CONS ---
Date/Time of Note Date/Time of Note DATE: 05/10/16 TIME: 14:04 Assessment/Plan Assessment/Plan Chief Complaint/Hosp Course SUBJECTIVE: The patient is alert, lying comfortably in bed. No fevers. ANTIMICROBIALS: 1. Vancomycin. 2. Rocephin. PHYSICAL EXAMINATION: GENERAL: Well-developed, middle-aged white man who is alert, in no distress. HEENT: Head atraumatic, normocephalic. Sclerae anicteric. Buccal mucosa pink. NECK: Supple. CHEST: Rise symmetrical. Breath sounds clear. HEART: S1, S2. ABDOMEN: Soft. Bowel tones present. EXTREMITIES: With right hand improved erythema and edema. ASSESSMENT: 1. Right hand cellulitis. 2. Systemic inflammatory response syndrome secondary to right hand cellulitis. 3. Polysubstance abuse. 4. Obesity. 5. History of psychiatric problems. PLAN: The patient remains stable. R hand looks better. Continue present care, antibiotics. Keep right hand elevated on 3 pillows at all times. DW pt Problems: Consultation Date/Type/Reason Admit Date/Time May 07, 2016 at 17:59 Initial Consult Date Type of Consultation: ID Referring Provider: JONNATHAN CHRISTIANSON Exam/Review of Systems Vital Signs Vitals Vital Signs Date Time Temp Pulse Resp B/P Pulse Ox O2 Delivery O2 Flow Rate FiO2 05/10/16 07:51 97.6 69 16 107/60 95 05/07/16 20:00 Room Air Intake and Output 05/09/16 05/09/16 05/10/16 15:00 23:00 07:00 Intake Total 250 ml 2740 ml 1180 ml Balance 250 ml 2740 ml 1180 ml Results Result Diagram: 05/10/16 0505 05/10/16 0505 Results 24 hrs Laboratory Tests Test 05/10/16 05:05 Anion Gap 16 Basophils # 0.1 Basophils % 0.6 Blood Urea Nitrogen 15 Calcium Level 8.4 Carbon Dioxide Level 25 Chloride Level 105 Creatinine 0.74 Eosinophils # 0.2 Eosinophils % 1.9 Glucose Level 87 Hematocrit 36.9 L Hemoglobin 12.9 L Lymphocytes # 2.6 Lymphocytes % 29.6 Mean Corpuscular Hemoglobin 31.2 Mean Corpuscular Hemoglobin Concent 35.0 Mean Corpuscular Volume 89.1 Mean Platelet Volume 10.1 Monocytes # 0.8 Monocytes % 8.4 Neutrophils # 5.2 Neutrophils % 58.5 Nucleated Red Blood Cells # 0.0 Nucleated Red Blood Cells % 0.0 Platelet Count 246 Potassium Level 3.7 Red Blood Count 4.14 L Red Cell Distribution Width 12.8 Sodium Level 142 White Blood Count 8.9 # Medications Medications Current Medications Ondansetron HCl (Zofran Inj) 4 mg Q6H PRN IV NAUSEA AND/OR VOMITING; Start at 20:30 Acetaminophen (Tylenol Tab) 650 mg Q6H PRN PO PAIN LEVEL 1-3 OR FEVER; Start at 20:30 Acetaminophen/ Hydrocodone Bitart ([place] (5/325)) 1 tab Q6H PRN PO MODERATE PAIN LEVEL 4-6 Last administered on 05/10/16 05:15; Admin Dose 1 TAB; Start at 20:30 Morphine Sulfate (morphine) 2 mg Q4H PRN IV SEVERE PAIN LEVEL 7-10; Start 05/07 at 20:30 Docusate Sodium (Colace) 100 mg Q12H PRN PO CONSTIPATION; Start 05/07/16 at 20: 30 Sodium Biphosphate/ Sodium Phosphate (Fleet Enema) 133 ml DAILY PRN [place] CONSTIPATION; Start 05/07/16 at 20:30 Pantoprazole (Protonix Tab) 40 mg DAILY@06 PO Last administered on 05/10/16 05 :15; Admin Dose 40 MG; Start 05/08/16 at 06:00 Heparin Sodium (Porcine) (Heparin (5000 Units/0.5 ml)) 5,000 unit Q12 SC Last administered on 05/10/16 08:43; Admin Dose 5,000 UNIT; Start 05/07/16 at 21:00 Lorazepam 0.5 mg 0.5 mg Q6H PRN IV ANXIETY Last administered on 05/10/16 09:07 ; Admin Dose 0.5 MG; Start 05/07/16 at 20:30; Stop 05/10/16 at 20:29 Sodium Chloride (NS) 1,000 ml @ 100 mls/hr Q10H IV Last administered on 17:29; Admin Dose 100 MLS/HR; Start 05/07/16 at 20:08 Vancomycin HCl (Vanco Iv Per Pharmacy) VANCOMYCIN PER PHARMACY NOTE XX ; Start 05/07/16 at 20:30 Hydralazine HCl (Apresoline) 10 mg Q6H PRN IV ELEVATED BLOOD PRESSURE; Start at 20:30 Clonidine (Catapres) 0.1 mg Q6H PRN PO ELEVATED BLOOD PRESSURE; Start 05/07/16 at 20:30 Nitroglycerin (Nitroglycerin (Sl Tab) 0.4 Mg) 1 tab Q5M PRN SL ANGINA; Start at 20:30 Gabapentin (Neurontin) 300 mg BID PO Last administered on 05/10/16 08:42; Admin Dose 300 MG; Start 05/07/16 at 21:00 Nortriptyline HCl (Aventyl) 75 mg HS PO Last administered on 05/09/16 20:01; Admin Dose 75 MG; Start 05/07/16 at 21:00 Olanzapine (Zyprexa) 10 mg QHS PO Last administered on 05/09/16 20:01; Admin Dose 10 MG; Start 05/07/16 at 21:00 Trazodone HCl 150 mg 150 mg QHS PO Last administered on 05/09/16 20:01; Admin Dose 150 MG; Start 05/07/16 at 21:00 Ceftriaxone Sodium 50 ml @ 100 mls/hr Q24H IVPB Last administered on 17:29; Admin Dose 100 MLS/HR; Start 05/08/16 at 18:00 Vancomycin HCl/ Sodium Chloride (Vancocin/NS) 250 ml @ 83.333 mls/ hr Q12H IVPB Last administered on 05/10/16 11:16; Admin Dose 83.333 MLS/HR; Start at 23:00 Nicotine (Nicoderm 21 Mg/ 24hr) 1 patch DAILY TRANSDERM ; Start 05/09/16 at 16: 00 Chlordiazepoxide (Librium) 25 mg TID PO Last administered on 05/10/16 13:15; Admin Dose 25 MG; Start 05/09/16 at 18:00 Miscellaneous Information (*Rx Drug Level Order Reminder*) VANCOMYCIN TROUGH AT 1000 ONCE ONCE XX ; Start 05/11/16 at 10:00; Stop 05/11/16 at 10:01 MAURIZIO CHRISTENSEN NP May 10, 2016 14:05
--- NOTE | 2016-05-10 14:59 | PN ---
Date/Time of Note Date/Time of Note DATE: 05/10/16 TIME: 14:51 Assessment/Plan VTE Prophylaxis VTE Prophylaxis Intervention: SCD's Lines/Catheters IV Catheter Type (from Nrsg): Peripheral IV Urinary Cath still in place: No Assessment/Plan Assessment/Plan 1. Right wrist/hand cellulitis.from IVDA, improving, on vancomycin and rocephin , keep left arm elevated 2. Systemic inflammatory response syndrome secondary to right hand cellulitis. , improved 3. Polysubstance abuse. advise to quit 4. Obesity. 5. History of psychiatric problems. anxiety disorder, ativan prn Subjective 24 Hr Interval Summary Free Text/Dictation less redness on right wrist lesion, less swelling on right hand. nervous Exam/Review of Systems Vital Signs Vitals Vital Signs Date Time Temp Pulse Resp B/P Pulse Ox O2 Delivery O2 Flow Rate FiO2 05/10/16 07:51 97.6 69 16 107/60 95 05/07/16 20:00 Room Air Intake and Output 05/09/16 05/09/16 05/10/16 15:00 23:00 07:00 Intake Total 250 ml 2740 ml 1180 ml Balance 250 ml 2740 ml 1180 ml Exam Constitutional: alert, oriented, well developed Psych: anxiety Head: atraumatic, normocephalic Eyes: EOMI, PERRL, nl conjunctiva, nl lids ENMT: nl external ears & nose, nl lips & teeth, nl nasal mucosa & septum Neck: non-tender, supple Respiratory: clear to auscultation, normal air movement, No congested cough, No crackles/rales, No diminished breath sounds, No intercostal retraction, No labored breathing, No other, No respirations, No tactile fremitus, No wheezing Cardiovascular: nl pulses, regular rate and rhythm, No S3, No S4, No bruits, No diastolic murmur, No edema, No gallop, No irregular rhythm, No jugular venous distention (JVD), No murmurs/extra sounds, No other, No rub, No systolic murmur Gastrointestinal: nl liver, spleen, non-tender, soft, No ascites, No bowel sounds, No distended, No firm, No hepatomegaly, No mass , No other, No rebound or guarding, No splenomegaly, No surgical scars, No tender Musculoskeletal: nl extremities to inspection, No joint tenderness, No muscle tone, No muscle weakness, No nl gait and stance, No other, No range of motion, No spine non-tender, No swelling Extremities: normal pulses, other (right wrist with a lesion with central healing eschar, redness around with swelling), No calf tenderness, No clubbing, No cyanosis, No palpable cord, No pitting pedal edema Neurological: PROPERTY TECHNICIAN II-XII intact, nl mental status, nl speech, nl strength Skin: nl turgor Results Result Diagram: 05/10/16 0505 05/10/16 0505 Results 24 hrs Laboratory Tests Test 05/10/16 05:05 Anion Gap 16 Basophils # 0.1 Basophils % 0.6 Blood Urea Nitrogen 15 Calcium Level 8.4 Carbon Dioxide Level 25 Chloride Level 105 Creatinine 0.74 Eosinophils # 0.2 Eosinophils % 1.9 Glucose Level 87 Hematocrit 36.9 L Hemoglobin 12.9 L Lymphocytes # 2.6 Lymphocytes % 29.6 Mean Corpuscular Hemoglobin 31.2 Mean Corpuscular Hemoglobin Concent 35.0 Mean Corpuscular Volume 89.1 Mean Platelet Volume 10.1 Monocytes # 0.8 Monocytes % 8.4 Neutrophils # 5.2 Neutrophils % 58.5 Nucleated Red Blood Cells # 0.0 Nucleated Red Blood Cells % 0.0 Platelet Count 246 Potassium Level 3.7 Red Blood Count 4.14 L Red Cell Distribution Width 12.8 Sodium Level 142 White Blood Count 8.9 # Medications Medications Current Medications Ondansetron HCl (Zofran Inj) 4 mg Q6H PRN IV NAUSEA AND/OR VOMITING; Start at 20:30 Acetaminophen (Tylenol Tab) 650 mg Q6H PRN PO PAIN LEVEL 1-3 OR FEVER; Start at 20:30 Acetaminophen/ Hydrocodone Bitart ([place] (5/325)) 1 tab Q6H PRN PO MODERATE PAIN LEVEL 4-6 Last administered on 05/10/16t 05:15; Admin Dose 1 TAB; Start at 20:30 Morphine Sulfate (morphine) 2 mg Q4H PRN IV SEVERE PAIN LEVEL 7-10; Start 05/07 at 20:30 Docusate Sodium (Colace) 100 mg Q12H PRN PO CONSTIPATION; Start 05/07/16 at 20: 30 Sodium Biphosphate/ Sodium Phosphate (Fleet Enema) 133 ml DAILY PRN [place] CONSTIPATION; Start 05/07/16 at 20:30 Pantoprazole (Protonix Tab) 40 mg DAILY@06 PO Last administered on 05/10/16 05 :15; Admin Dose 40 MG; Start 05/08/16 at 06:00 Heparin Sodium (Porcine) (Heparin (5000 Units/0.5 ml)) 5,000 unit Q12 SC Last administered on 05/10/16 08:43; Admin Dose 5,000 UNIT; Start 05/07/16 at 21:00 Lorazepam 0.5 mg 0.5 mg Q6H PRN IV ANXIETY Last administered on 05/10/16 09:07 ; Admin Dose 0.5 MG; Start 05/07/16 at 20:30; Stop 05/10/16 at 20:29 Sodium Chloride (NS) 1,000 ml @ 100 mls/hr Q10H IV Last administered on 17:29; Admin Dose 100 MLS/HR; Start 05/07/16 at 20:08 Vancomycin HCl (Vanco Iv Per Pharmacy) VANCOMYCIN PER PHARMACY NOTE XX ; Start 05/07/16 at 20:30 Hydralazine HCl (Apresoline) 10 mg Q6H PRN IV ELEVATED BLOOD PRESSURE; Start at 20:30 Clonidine (Catapres) 0.1 mg Q6H PRN PO ELEVATED BLOOD PRESSURE; Start 05/07/16 at 20:30 Nitroglycerin (Nitroglycerin (Sl Tab) 0.4 Mg) 1 tab Q5M PRN SL ANGINA; Start at 20:30 Gabapentin (Neurontin) 300 mg BID PO Last administered on 05/10/16 08:42; Admin Dose 300 MG; Start 05/07/16 at 21:00 Nortriptyline HCl (Aventyl) 75 mg HS PO Last administered on 05/09/16 20:01; Admin Dose 75 MG; Start 05/07/16 at 21:00 Olanzapine (Zyprexa) 10 mg QHS PO Last administered on 05/09/16 20:01; Admin Dose 10 MG; Start 05/07/16 at 21:00 Trazodone HCl 150 mg 150 mg QHS PO Last administered on 05/09/16 20:01; Admin Dose 150 MG; Start 05/07/16 at 21:00 Ceftriaxone Sodium 50 ml @ 100 mls/hr Q24H IVPB Last administered on 17:29; Admin Dose 100 MLS/HR; Start 05/08/16 at 18:00 Vancomycin HCl/ Sodium Chloride (Vancocin/NS) 250 ml @ 83.333 mls/ hr Q12H IVPB Last administered on 05/10/16 11:16; Admin Dose 83.333 MLS/HR; Start at 23:00 Nicotine (Nicoderm 21 Mg/ 24hr) 1 patch DAILY TRANSDERM ; Start 05/09/16 at 16: 00 Chlordiazepoxide (Librium) 25 mg TID PO Last administered on 05/10/16 13:15; Admin Dose 25 MG; Start 05/09/16 at 18:00 Miscellaneous Information (*Rx Drug Level Order Reminder*) VANCOMYCIN TROUGH AT 1000 ONCE ONCE XX ; Start 05/11/16 at 10:00; Stop 05/11/16 at 10:01 GIULIANA MONTOYA MD May 10, 2016 14:58
[2016-05-10] MEDS ORDERED: LORAZEPAM 1 MG TAB PO SCH (15:00)
[2016-05-10] MEDS: CEFTRIAXONE 1 GM/50 ML (PMX) 50 ML IVPB SCH (18:06)
[2016-05-10] MEDS: NORTRIPTYLINE 25 MG CAP PO SCH (20:48)
[2016-05-10] MEDS: traZODone 50 MG TAB PO SCH (20:49)
[2016-05-10] MEDS: OLANZAPINE 5 MG TAB PO SCH (20:49)
[2016-05-10 21:38] VITALS: BP 156/95; RESP 16
[2016-05-11] MEDS: SOD CHLORIDE 0.9% 1,000 ML IV SCH ×3 (03:46→21:25)
[2016-05-11 05:38] LABS: ADD SCAN DIFF NO
[2016-05-11 06:08] LABS: POTASSIUM 3.4 mmol/L (3.5-5.1)
[2016-05-11 06:10] LABS: BASOPHIL # 0.1 10^3/ul (0.0-0.1); BASOPHILS % 0.6 % (0.0-2.0); EOSINOPHILS # 0.1 10^3/ul (0.0-0.5); EOSINOPHILS % 0.8 % (0.0-7.0); HEMATOCRIT 38.4 % (42.0-52.0); HEMOGLOBIN 13.3 g/dl (14.0-18.0); LYMPHOCYTES # 2.5 10^3/ul (0.8-2.9); LYMPHOCYTES % 23.9 % (15.0-51.0); MEAN CORPUSCULAR HEMOGLOBIN 30.6 pg (29.0-33.0); MEAN CORPUSCULAR HGB CONC 34.6 g/dl (32.0-37.0); MEAN CORPUSCULAR VOLUME 88.5 fl (82.0-101.0); MEAN PLATELET VOLUME 9.9 fl (7.4-10.4); MONOCYTE # 1.1 10^3/ul (0.3-0.9); MONOCYTES % 10.5 % (0.0-11.0); NEUTROPHIL # 6.5 10^3/ul (1.6-7.5); NEUTROPHILS % 62.9 % (39.0-77.0); PLATELET COUNT 346 10^3/UL (140-415); RED BLOOD COUNT 4.34 10^6/ul (4.70-6.10); RED CELL DISTRIBUTION WIDTH 12.8 % (11.5-14.5); WHITE BLOOD COUNT 10.4 10^3/ul (4.8-10.8)
[2016-05-11 06:11] LABS: CREATININE 0.72 mg/dl (0.61-1.24)
[2016-05-11 06:12] LABS: CALCIUM 9.1 mg/dl (8.4-10.2)
[2016-05-11] MEDS: PANTOPRAZOLE (EC) 40 MG TAB PO SCH (06:26)
[2016-05-11 08:07] VITALS: BP 149/97; RESP 18
[2016-05-11] MEDS: GABAPENTIN 300 MG CAP PO SCH ×2 (08:53→20:32)
[2016-05-11] MEDS: NICOTINE (21 MG/24 HR) PATCH TRANSDERM SCH (08:53)
[2016-05-11] MEDS: CHLORDIAZEPOXIDE 25 MG CAP PO SCH ×3 (08:53→20:32)
[2016-05-11] MEDS: HEPARIN 5,000 UNIT/0.5 ML SYG SC SCH ×2 (11:27→20:37)
[2016-05-11] MEDS: VANCOMYCIN 1.5 GM in SOD CHLORIDE 0.9% 250 ML IVPB SCH ×2 (13:15→22:29)
--- NOTE | 2016-05-11 14:39 | CONS ---
Date/Time of Note Date/Time of Note DATE: 05/11/16 TIME: 14:38 Assessment/Plan Assessment/Plan Chief Complaint/Hosp Course SUBJECTIVE: The patient is alert, lying comfortably in bed. No fevers. ANTIMICROBIALS: 1. Vancomycin. 2. Rocephin. PHYSICAL EXAMINATION: GENERAL: Well-developed, middle-aged white man who is alert, in no distress. HEENT: Head atraumatic, normocephalic. Sclerae anicteric. Buccal mucosa pink. NECK: Supple. CHEST: Rise symmetrical. Breath sounds clear. HEART: S1, S2. ABDOMEN: Soft. Bowel tones present. EXTREMITIES: With right hand improved erythema and edema. ASSESSMENT: 1. Right hand cellulitis. 2. Systemic inflammatory response syndrome secondary to right hand cellulitis. 3. Polysubstance abuse. 4. Obesity. 5. History of psychiatric problems. PLAN: Improving. R hand looks better. Continue present care, antibiotics/right hand elevation. Anticipate dc on PO Bactrim DW pt Problems: Consultation Date/Type/Reason Admit Date/Time May 07, 2016 at 17:59 Type of Consultation: ID Referring Provider: JONNATHAN CHRISTIANSON Exam/Review of Systems Vital Signs Vitals Vital Signs Date Time Temp Pulse Resp B/P Pulse Ox O2 Delivery O2 Flow Rate FiO2 05/11/16 08:07 98.0 97 18 149/97 96 05/07/16 20:00 Room Air Intake and Output 05/10/16 05/10/16 05/11/16 15:00 23:00 07:00 Intake Total 700 ml 850 ml 1240 ml Balance 700 ml 850 ml 1240 ml Results Result Diagram: 05/11/16 0515 05/11/16 0515 Results 24 hrs Laboratory Tests Test 05/11/16 05:15 05/11/16 10:12 Anion Gap 19 H Basophils # 0.1 Basophils % 0.6 Blood Urea Nitrogen 11 Calcium Level 9.1 Carbon Dioxide Level 25 Chloride Level 103 Creatinine 0.72 Eosinophils # 0.1 Eosinophils % 0.8 Glucose Level 98 Hematocrit 38.4 L Hemoglobin 13.3 L Lymphocytes # 2.5 Lymphocytes % 23.9 Mean Corpuscular Hemoglobin 30.6 Mean Corpuscular Hemoglobin Concent 34.6 Mean Corpuscular Volume 88.5 Mean Platelet Volume 9.9 Monocytes # 1.1 H Monocytes % 10.5 Neutrophils # 6.5 Neutrophils % 62.9 Nucleated Red Blood Cells # 0.0 Nucleated Red Blood Cells % 0.0 Platelet Count 346 # Potassium Level 3.4 L Red Blood Count 4.34 L Red Cell Distribution Width 12.8 Sodium Level 144 White Blood Count 10.4 Vancomycin Level Trough 10.0 Medications Medications Current Medications Ondansetron HCl (Zofran Inj) 4 mg Q6H PRN IV NAUSEA AND/OR VOMITING; Start at 20:30 Acetaminophen (Tylenol Tab) 650 mg Q6H PRN PO PAIN LEVEL 1-3 OR FEVER; Start at 20:30 Acetaminophen/ Hydrocodone Bitart ([place] (5/325)) 1 tab Q6H PRN PO MODERATE PAIN LEVEL 4-6 Last administered on 05/10/16 05:15; Admin Dose 1 TAB; Start at 20:30 Morphine Sulfate (morphine) 2 mg Q4H PRN IV SEVERE PAIN LEVEL 7-10; Start 05/07 at 20:30 Docusate Sodium (Colace) 100 mg Q12H PRN PO CONSTIPATION; Start 05/07/16 at 20: 30 Sodium Biphosphate/ Sodium Phosphate (Fleet Enema) 133 ml DAILY PRN [place] CONSTIPATION; Start 05/07/16 at 20:30 Pantoprazole (Protonix Tab) 40 mg DAILY@06 PO Last administered on 05/11/16 06 :26; Admin Dose 40 MG; Start 05/08/16 at 06:00 Heparin Sodium (Porcine) 5000 unit 5,000 unit Q12 SC Last administered on 11:27; Admin Dose 5,000 UNIT; Start 05/07/16 at 21:00 Sodium Chloride (NS) 1,000 ml @ 100 mls/hr Q10H IV Last administered on 03:46; Admin Dose 100 MLS/HR; Start 05/07/16 at 20:08 Vancomycin HCl (Vanco Iv Per Pharmacy) VANCOMYCIN PER PHARMACY NOTE XX ; Start 05/07/16 at 20:30 Hydralazine HCl (Apresoline) 10 mg Q6H PRN IV ELEVATED BLOOD PRESSURE; Start at 20:30 Clonidine (Catapres) 0.1 mg Q6H PRN PO ELEVATED BLOOD PRESSURE; Start 05/07/16 at 20:30 Nitroglycerin (Nitroglycerin (Sl Tab) 0.4 Mg) 1 tab Q5M PRN SL ANGINA; Start at 20:30 Gabapentin (Neurontin) 300 mg BID PO Last administered on 05/11/16 08:53; Admin Dose 300 MG; Start 05/07/16 at 21:00 Nortriptyline HCl (Aventyl) 75 mg HS PO Last administered on 05/10/16 20:48; Admin Dose 75 MG; Start 05/07/16 at 21:00 Olanzapine (Zyprexa) 10 mg QHS PO Last administered on 05/10/16 20:49; Admin Dose 10 MG; Start 05/07/16 at 21:00 Trazodone HCl 150 mg 150 mg QHS PO Last administered on 05/10/16 20:49; Admin Dose 150 MG; Start 05/07/16 at 21:00 Ceftriaxone Sodium 50 ml @ 100 mls/hr Q24H IVPB Last administered on 18:06; Admin Dose 100 MLS/HR; Start 05/08/16 at 18:00 Vancomycin HCl/ Sodium Chloride (Vancocin/NS) 250 ml @ 83.333 mls/ hr Q12H IVPB Last administered on 05/11/16 13:15; Admin Dose 83.333 MLS/HR; Start at 23:00 Nicotine (Nicoderm 21 Mg/ 24hr) 1 patch DAILY TRANSDERM ; Start 05/09/16 at 16: 00 Chlordiazepoxide (Librium) 25 mg TID PO Last administered on 05/11/16 13:17; Admin Dose 25 MG; Start 05/09/16 at 18:00 Lorazepam (Ativan) 1 mg Q8H PRN IV ANXIETY Last administered on 05/10/16 22:36 ; Admin Dose 1 MG; Start 05/10/16 at 17:00 MAURIZIO CHRISTENSEN NP May 11, 2016 14:39
--- NOTE | 2016-05-11 15:20 | PN ---
Date/Time of Note Date/Time of Note DATE: 05/11/16 TIME: 15:18 Assessment/Plan VTE Prophylaxis VTE Prophylaxis Intervention: other Lines/Catheters IV Catheter Type (from Nrsg): Peripheral IV Urinary Cath still in place: No Assessment/Plan Assessment/Plan 1. Right wrist/hand cellulitis.from IVDA, improving, on vancomycin and rocephin , keep left arm elevated, talked to ID, home tomorrow 2. Systemic inflammatory response syndrome secondary to right hand cellulitis. , improved 3. Polysubstance abuse. advise to quit 4. Obesity. 5. History of psychiatric problems. anxiety disorder, ativan prn Subjective 24 Hr Interval Summary Free Text/Dictation feels better. afebrile Exam/Review of Systems Vital Signs Vitals Vital Signs Date Time Temp Pulse Resp B/P Pulse Ox O2 Delivery O2 Flow Rate FiO2 05/11/16 08:07 98.0 97 18 149/97 96 05/07/16 20:00 Room Air Intake and Output 05/10/16 05/10/16 05/11/16 15:00 23:00 07:00 Intake Total 700 ml 850 ml 1240 ml Balance 700 ml 850 ml 1240 ml Exam Constitutional: alert, oriented, well developed Psych: anxiety, no complaints Head: atraumatic, normocephalic Eyes: EOMI, nl conjunctiva, nl lids ENMT: mucosa pink and moist, nl external ears & nose, nl lips & teeth, nl nasal mucosa & septum Neck: non-tender, supple Respiratory: clear to auscultation, normal air movement, No congested cough, No crackles/rales, No diminished breath sounds, No intercostal retraction, No labored breathing, No other, No respirations, No tactile fremitus, No wheezing Cardiovascular: nl pulses, regular rate and rhythm, No S3, No S4, No bruits, No diastolic murmur, No edema, No gallop, No irregular rhythm, No jugular venous distention (JVD), No murmurs/extra sounds, No other, No rub, No systolic murmur Gastrointestinal: nl liver, spleen, non-tender, soft, No ascites, No bowel sounds, No distended, No firm, No hepatomegaly, No mass , No other, No rebound or guarding, No splenomegaly, No surgical scars, No tender Musculoskeletal: nl extremities to inspection Extremities: normal pulses, other (right wrist lession), tenderness, No calf tenderness, No clubbing, No cyanosis, No edema, No palpable cord, No pitting pedal edema Neurological: LIMOUSINE DRIVER II-XII intact, nl mental status, nl speech, nl strength Lymph: nl lymph nodes Results Result Diagram: 05/11/16 0515 05/11/16 0515 Results 24 hrs Laboratory Tests Test 05/11/16 05:15 05/11/16 10:12 Anion Gap 19 H Basophils # 0.1 Basophils % 0.6 Blood Urea Nitrogen 11 Calcium Level 9.1 Carbon Dioxide Level 25 Chloride Level 103 Creatinine 0.72 Eosinophils # 0.1 Eosinophils % 0.8 Glucose Level 98 Hematocrit 38.4 L Hemoglobin 13.3 L Lymphocytes # 2.5 Lymphocytes % 23.9 Mean Corpuscular Hemoglobin 30.6 Mean Corpuscular Hemoglobin Concent 34.6 Mean Corpuscular Volume 88.5 Mean Platelet Volume 9.9 Monocytes # 1.1 H Monocytes % 10.5 Neutrophils # 6.5 Neutrophils % 62.9 Nucleated Red Blood Cells # 0.0 Nucleated Red Blood Cells % 0.0 Platelet Count 346 # Potassium Level 3.4 L Red Blood Count 4.34 L Red Cell Distribution Width 12.8 Sodium Level 144 White Blood Count 10.4 Vancomycin Level Trough 10.0 Medications Medications Current Medications Ondansetron HCl (Zofran Inj) 4 mg Q6H PRN IV NAUSEA AND/OR VOMITING; Start at 20:30 Acetaminophen (Tylenol Tab) 650 mg Q6H PRN PO PAIN LEVEL 1-3 OR FEVER; Start at 20:30 Acetaminophen/ Hydrocodone Bitart ([place] (5/325)) 1 tab Q6H PRN PO MODERATE PAIN LEVEL 4-6 Last administered on 05/10/16t 05:15; Admin Dose 1 TAB; Start at 20:30 Morphine Sulfate (morphine) 2 mg Q4H PRN IV SEVERE PAIN LEVEL 7-10; Start 05/07 at 20:30 Docusate Sodium (Colace) 100 mg Q12H PRN PO CONSTIPATION; Start 05/07/16 at 20: 30 Sodium Biphosphate/ Sodium Phosphate (Fleet Enema) 133 ml DAILY PRN [place] CONSTIPATION; Start 05/07/16 at 20:30 Pantoprazole (Protonix Tab) 40 mg DAILY@06 PO Last administered on 05/11/16 06 :26; Admin Dose 40 MG; Start 05/08/16 at 06:00 Heparin Sodium (Porcine) 5000 unit 5,000 unit Q12 SC Last administered on 11:27; Admin Dose 5,000 UNIT; Start 05/07/16 at 21:00 Sodium Chloride (NS) 1,000 ml @ 100 mls/hr Q10H IV Last administered on 03:46; Admin Dose 100 MLS/HR; Start 05/07/16 at 20:08 Vancomycin HCl (Vanco Iv Per Pharmacy) VANCOMYCIN PER PHARMACY NOTE XX ; Start 05/07/16 at 20:30 Hydralazine HCl (Apresoline) 10 mg Q6H PRN IV ELEVATED BLOOD PRESSURE; Start at 20:30 Clonidine (Catapres) 0.1 mg Q6H PRN PO ELEVATED BLOOD PRESSURE; Start 05/07/16 at 20:30 Nitroglycerin (Nitroglycerin (Sl Tab) 0.4 Mg) 1 tab Q5M PRN SL ANGINA; Start at 20:30 Gabapentin (Neurontin) 300 mg BID PO Last administered on 05/11/16 08:53; Admin Dose 300 MG; Start 05/07/16 at 21:00 Nortriptyline HCl (Aventyl) 75 mg HS PO Last administered on 05/10/16 20:48; Admin Dose 75 MG; Start 05/07/16 at 21:00 Olanzapine (Zyprexa) 10 mg QHS PO Last administered on 05/10/16 20:49; Admin Dose 10 MG; Start 05/07/16 at 21:00 Trazodone HCl 150 mg 150 mg QHS PO Last administered on 05/10/16 20:49; Admin Dose 150 MG; Start 05/07/16 at 21:00 Ceftriaxone Sodium 50 ml @ 100 mls/hr Q24H IVPB Last administered on 18:06; Admin Dose 100 MLS/HR; Start 05/08/16 at 18:00 Vancomycin HCl/ Sodium Chloride (Vancocin/NS) 250 ml @ 83.333 mls/ hr Q12H IVPB Last administered on 05/11/16 13:15; Admin Dose 83.333 MLS/HR; Start at 23:00 Nicotine (Nicoderm 21 Mg/ 24hr) 1 patch DAILY TRANSDERM ; Start 05/09/16 at 16: 00 Chlordiazepoxide (Librium) 25 mg TID PO Last administered on 05/11/16 13:17; Admin Dose 25 MG; Start 05/09/16 at 18:00 Lorazepam (Ativan) 1 mg Q8H PRN IV ANXIETY Last administered on 05/10/16 22:36 ; Admin Dose 1 MG; Start 05/10/16 at 17:00 GIULIANA MONTOYA MD May 11, 2016 15:20
[2016-05-11] MEDS: CEFTRIAXONE 1 GM/50 ML (PMX) 50 ML IVPB SCH (19:19)
[2016-05-11] MEDS: OLANZAPINE 5 MG TAB PO SCH (20:31)
[2016-05-11] MEDS: NORTRIPTYLINE 25 MG CAP PO SCH (20:32)
[2016-05-11] MEDS: traZODone 50 MG TAB PO SCH (20:33)
[2016-05-11] MEDS: HYDROCODONE/APAP (5/325) TAB PO PRN (21:29)
[2016-05-11] MEDS: LORAZEPAM 2 MG INJ IV PRN (22:29)
[2016-05-11 22:56] VITALS: BP 121/80; RESP 20
[2016-05-12] MEDS: ZOLPIDEM 5 MG TAB PO PRN (03:36)
[2016-05-12] MEDS: PANTOPRAZOLE (EC) 40 MG TAB PO SCH (05:35)
[2016-05-12] MEDS: LORAZEPAM 2 MG INJ IV PRN ×2 (07:08→22:44)
[2016-05-12 08:30] VITALS: BP 124/80; RESP 18
[2016-05-12] MEDS: NICOTINE (21 MG/24 HR) PATCH TRANSDERM SCH (09:00)
[2016-05-12] MEDS: GABAPENTIN 300 MG CAP PO SCH ×2 (09:24→22:05)
[2016-05-12] MEDS: CHLORDIAZEPOXIDE 25 MG CAP PO SCH ×3 (09:24→22:05)
[2016-05-12] MEDS: HEPARIN 5,000 UNIT/0.5 ML SYG SC SCH ×2 (09:25→22:04)
[2016-05-12] MEDS: SOD CHLORIDE 0.9% 1,000 ML IV SCH ×2 (10:08→20:08)
[2016-05-12 10:28] LABS: ADD SCAN DIFF NO
[2016-05-12 10:38] LABS: BASOPHIL # 0.1 10^3/ul (0.0-0.1); BASOPHILS % 0.5 % (0.0-2.0); EOSINOPHILS # 0.1 10^3/ul (0.0-0.5); EOSINOPHILS % 0.6 % (0.0-7.0); HEMATOCRIT 38.4 % (42.0-52.0); HEMOGLOBIN 13.7 g/dl (14.0-18.0); LYMPHOCYTES # 1.8 10^3/ul (0.8-2.9); LYMPHOCYTES % 16.3 % (15.0-51.0); MEAN CORPUSCULAR HEMOGLOBIN 31.5 pg (29.0-33.0); MEAN CORPUSCULAR HGB CONC 35.7 g/dl (32.0-37.0); MEAN CORPUSCULAR VOLUME 88.3 fl (82.0-101.0); MEAN PLATELET VOLUME 9.9 fl (7.4-10.4); MONOCYTE # 0.9 10^3/ul (0.3-0.9); MONOCYTES % 8.2 % (0.0-11.0); NEUTROPHIL # 8.1 10^3/ul (1.6-7.5); NEUTROPHILS % 73.2 % (39.0-77.0); PLATELET COUNT 374 10^3/UL (140-415); RED BLOOD COUNT 4.35 10^6/ul (4.70-6.10); RED CELL DISTRIBUTION WIDTH 13.1 % (11.5-14.5); WHITE BLOOD COUNT 11.1 10^3/ul (4.8-10.8)
[2016-05-12 10:42] LABS: POTASSIUM 3.9 mmol/L (3.5-5.1)
[2016-05-12 10:45] LABS: CREATININE 0.85 mg/dl (0.61-1.24)
[2016-05-12 10:46] LABS: CALCIUM 9.2 mg/dl (8.4-10.2)
--- NOTE | 2016-05-12 11:14 | PN ---
Date/Time of Note Date/Time of Note DATE: 05/12/16 TIME: 11:00 Assessment/Plan VTE Prophylaxis VTE Prophylaxis Intervention: SCD's Lines/Catheters IV Catheter Type (from Nrsg): Peripheral IV Urinary Cath still in place: No Assessment/Plan Assessment/Plan 1. Right wrist/hand cellulitis.from IVDA, improving, on vancomycin and rocephin , keep left arm elevated, ID following will need more IV abx, will plan for d/c 2. Systemic inflammatory response syndrome secondary to right hand cellulitis. , improved 3. Polysubstance abuse. advise to quit 4. Obesity. 5. History of psychiatric problems. anxiety disorder, ativan prn Plan: ativan 2 mg pO x 1 dose extra now Ativan IV prn IV abx Vancomycin BP stable Afebrile, ID following will keep pt in hospital more IV abx Subjective 24 Hr Interval Summary Free Text/Dictation lost IV access, very anxious said Ativan 1mg not working Exam/Review of Systems Vital Signs Vitals Vital Signs Date Time Temp Pulse Resp B/P Pulse Ox O2 Delivery O2 Flow Rate FiO2 05/12/16 08:30 98.0 18 124/80 98 Room Air 05/11/16 22:56 103 Intake and Output 05/11/16 05/11/16 05/12/16 15:00 23:00 07:00 Intake Total 2440 ml 1570 ml Balance 2440 ml 1570 ml Exam Constitutional: alert, oriented, well developed Psych: anxiety Head: atraumatic, normocephalic Eyes: EOMI, PERRL, nl conjunctiva, nl lids ENMT: nl external ears & nose, nl lips & teeth, nl nasal mucosa & septum Neck: non-tender, supple Respiratory: clear to auscultation, normal air movement, No congested cough, No crackles/rales, No diminished breath sounds, No intercostal retraction, No labored breathing, No other, No respirations, No tactile fremitus, No wheezing Cardiovascular: nl pulses, regular rate and rhythm, No S3, No S4, No bruits, No diastolic murmur, No edema, No gallop, No irregular rhythm, No jugular venous distention (JVD), No murmurs/extra sounds, No other, No rub, No systolic murmur Gastrointestinal: nl liver, spleen, non-tender, soft, No ascites, No bowel sounds, No distended, No firm, No hepatomegaly, No mass , No other, No rebound or guarding, No splenomegaly, No surgical scars, No tender Musculoskeletal: nl extremities to inspection, No joint tenderness, No muscle tone, No muscle weakness, No nl gait and stance, No other, No range of motion, No spine non-tender, No swelling Extremities: normal pulses, other (right wrist with a lesion with central healing eschar, redness around with swelling), No calf tenderness, No clubbing, No cyanosis, No palpable cord, No pitting pedal edema Neurological: SKATING CARHOP II-XII intact, nl mental status, nl speech, nl strength Skin: nl turgor Results Result Diagram: 05/12/16 1006 05/12/16 1006 Results 24 hrs Laboratory Tests Test 05/12/16 10:06 White Blood Count 11.1 H Red Blood Count 4.35 L Hemoglobin 13.7 L Hematocrit 38.4 L Mean Corpuscular Volume 88.3 Mean Corpuscular Hemoglobin 31.5 Mean Corpuscular Hemoglobin Concent 35.7 Red Cell Distribution Width 13.1 Platelet Count 374 Mean Platelet Volume 9.9 Neutrophils % 73.2 Lymphocytes % 16.3 Monocytes % 8.2 Eosinophils % 0.6 Basophils % 0.5 Nucleated Red Blood Cells % 0.0 Neutrophils # 8.1 H Lymphocytes # 1.8 Monocytes # 0.9 Eosinophils # 0.1 Basophils # 0.1 Nucleated Red Blood Cells # 0.0 Sodium Level 143 Potassium Level 3.9 Chloride Level 104 Carbon Dioxide Level 21 Anion Gap 22 H Blood Urea Nitrogen 12 Creatinine 0.85 Glucose Level 103 Calcium Level 9.2 Medications Medications Current Medications Ondansetron HCl (Zofran Inj) 4 mg Q6H PRN IV NAUSEA AND/OR VOMITING; Start at 20:30 Acetaminophen (Tylenol Tab) 650 mg Q6H PRN PO PAIN LEVEL 1-3 OR FEVER; Start at 20:30 Acetaminophen/ Hydrocodone Bitart ([place] (5/325)) 1 tab Q6H PRN PO MODERATE PAIN LEVEL 4-6 Last administered on 05/11/16t 21:29; Admin Dose 1 TAB; Start at 20:30 Morphine Sulfate (morphine) 2 mg Q4H PRN IV SEVERE PAIN LEVEL 7-10; Start 05/07 at 20:30 Docusate Sodium (Colace) 100 mg Q12H PRN PO CONSTIPATION; Start 05/07/16 at 20: 30 Sodium Biphosphate/ Sodium Phosphate (Fleet Enema) 133 ml DAILY PRN [place] CONSTIPATION; Start 05/07/16 at 20:30 Pantoprazole (Protonix Tab) 40 mg DAILY@06 PO Last administered on 05/12/16 05 :35; Admin Dose 40 MG; Start 05/08/16 at 06:00 Heparin Sodium (Porcine) 5000 unit 5,000 unit Q12 SC Last administered on 09:25; Admin Dose 5,000 UNIT; Start 05/07/16 at 21:00 Sodium Chloride (NS) 1,000 ml @ 100 mls/hr Q10H IV Last administered on 21:25; Admin Dose 100 MLS/HR; Start 05/07/16 at 20:08 Vancomycin HCl (Vanco Iv Per Pharmacy) VANCOMYCIN PER PHARMACY NOTE XX ; Start 05/07/16 at 20:30 Hydralazine HCl (Apresoline) 10 mg Q6H PRN IV ELEVATED BLOOD PRESSURE; Start at 20:30 Clonidine (Catapres) 0.1 mg Q6H PRN PO ELEVATED BLOOD PRESSURE; Start 05/07/16 at 20:30 Nitroglycerin (Nitroglycerin (Sl Tab) 0.4 Mg) 1 tab Q5M PRN SL ANGINA; Start at 20:30 Gabapentin (Neurontin) 300 mg BID PO Last administered on 05/12/16 09:24; Admin Dose 300 MG; Start 05/07/16 at 21:00 Nortriptyline HCl (Aventyl) 75 mg HS PO Last administered on 05/11/16 20:32; Admin Dose 75 MG; Start 05/07/16 at 21:00 Olanzapine (Zyprexa) 10 mg QHS PO Last administered on 05/11/16 20:31; Admin Dose 10 MG; Start 05/07/16 at 21:00 Trazodone HCl 150 mg 150 mg QHS PO Last administered on 05/11/16 20:33; Admin Dose 150 MG; Start 05/07/16 at 21:00 Ceftriaxone Sodium 50 ml @ 100 mls/hr Q24H IVPB Last administered on 19:19; Admin Dose 100 MLS/HR; Start 05/08/16 at 18:00 Vancomycin HCl/ Sodium Chloride (Vancocin/NS) 250 ml @ 83.333 mls/ hr Q12H IVPB Last administered on 05/11/16 22:29; Admin Dose 83.333 MLS/HR; Start at 23:00 Nicotine (Nicoderm 21 Mg/ 24hr) 1 patch DAILY TRANSDERM ; Start 05/09/16 at 16: 00 Chlordiazepoxide (Librium) 25 mg TID PO Last administered on 05/12/16 09:24; Admin Dose 25 MG; Start 05/09/16 at 18:00 Lorazepam (Ativan) 1 mg Q8H PRN IV ANXIETY Last administered on 05/12/16 07:08 ; Admin Dose 1 MG; Start 05/10/16 at 17:00 RICK GARDNER MD May 12, 2016 11:11
[2016-05-12] MEDS ORDERED: LORAZEPAM 1 MG TAB PO ONE (11:30)
[2016-05-12] MEDS: VANCOMYCIN 1.5 GM in SOD CHLORIDE 0.9% 250 ML IVPB SCH ×2 (12:02→23:15)
--- NOTE | 2016-05-12 14:10 | CONS ---
Date/Time of Note Date/Time of Note DATE: 05/12/16 TIME: 14:08 Assessment/Plan Assessment/Plan Chief Complaint/Hosp Course SUBJECTIVE: The patient is alert No fevers, NAD. ANTIMICROBIALS: 1. Vancomycin. 2. Rocephin. PHYSICAL EXAMINATION: GENERAL: Well-developed, middle-aged white man who is alert, in no distress. HEENT: Head atraumatic, normocephalic. Sclerae anicteric. Buccal mucosa pink. NECK: Supple. CHEST: Rise symmetrical. Breath sounds clear. HEART: S1, S2. ABDOMEN: Soft. Bowel tones present. EXTREMITIES: With right hand improved erythema and edema. ASSESSMENT: 1. Right hand cellulitis==> improved, now with area of fluctuance on the wrist. 2. Systemic inflammatory response syndrome secondary to right hand cellulitis. 3. Polysubstance abuse. 4. Obesity. 5. History of psychiatric problems. PLAN: Improving. R hand swelling resolved, area of fluctuance on his wrist may need to be drained, will ask Dr Jerry to evaluate==> sent text DW pt Problems: Consultation Date/Type/Reason Admit Date/Time May 07, 2016 at 17:59 Type of Consultation: ID Referring Provider: JONNATHAN CHRISTIANSON Exam/Review of Systems Vital Signs Vitals Vital Signs Date Time Temp Pulse Resp B/P Pulse Ox O2 Delivery O2 Flow Rate FiO2 05/12/16 08:30 98.0 18 124/80 98 Room Air 05/11/16 22:56 103 Intake and Output 05/11/16 05/11/16 05/12/16 15:00 23:00 07:00 Intake Total 2440 ml 1570 ml Balance 2440 ml 1570 ml Results Result Diagram: 05/12/16 1006 05/12/16 1006 Results 24 hrs Laboratory Tests Test 05/12/16 10:06 White Blood Count 11.1 H Red Blood Count 4.35 L Hemoglobin 13.7 L Hematocrit 38.4 L Mean Corpuscular Volume 88.3 Mean Corpuscular Hemoglobin 31.5 Mean Corpuscular Hemoglobin Concent 35.7 Red Cell Distribution Width 13.1 Platelet Count 374 Mean Platelet Volume 9.9 Neutrophils % 73.2 Lymphocytes % 16.3 Monocytes % 8.2 Eosinophils % 0.6 Basophils % 0.5 Nucleated Red Blood Cells % 0.0 Neutrophils # 8.1 H Lymphocytes # 1.8 Monocytes # 0.9 Eosinophils # 0.1 Basophils # 0.1 Nucleated Red Blood Cells # 0.0 Sodium Level 143 Potassium Level 3.9 Chloride Level 104 Carbon Dioxide Level 21 Anion Gap 22 H Blood Urea Nitrogen 12 Creatinine 0.85 Glucose Level 103 Calcium Level 9.2 Medications Medications Current Medications Ondansetron HCl (Zofran Inj) 4 mg Q6H PRN IV NAUSEA AND/OR VOMITING; Start at 20:30 Acetaminophen (Tylenol Tab) 650 mg Q6H PRN PO PAIN LEVEL 1-3 OR FEVER; Start at 20:30 Acetaminophen/ Hydrocodone Bitart ([place] (5/325)) 1 tab Q6H PRN PO MODERATE PAIN LEVEL 4-6 Last administered on 05/11/16 21:29; Admin Dose 1 TAB; Start at 20:30 Morphine Sulfate (morphine) 2 mg Q4H PRN IV SEVERE PAIN LEVEL 7-10; Start 05/07 at 20:30 Docusate Sodium (Colace) 100 mg Q12H PRN PO CONSTIPATION; Start 05/07/16 at 20: 30 Sodium Biphosphate/ Sodium Phosphate (Fleet Enema) 133 ml DAILY PRN [place] CONSTIPATION; Start 05/07/16 at 20:30 Pantoprazole (Protonix Tab) 40 mg DAILY@06 PO Last administered on 05/12/16 05 :35; Admin Dose 40 MG; Start 05/08/16 at 06:00 Heparin Sodium (Porcine) 5000 unit 5,000 unit Q12 SC Last administered on 09:25; Admin Dose 5,000 UNIT; Start 05/07/16 at 21:00 Sodium Chloride (NS) 1,000 ml @ 100 mls/hr Q10H IV Last administered on 21:25; Admin Dose 100 MLS/HR; Start 05/07/16 at 20:08 Vancomycin HCl (Vanco Iv Per Pharmacy) VANCOMYCIN PER PHARMACY NOTE XX ; Start 05/07/16 at 20:30 Hydralazine HCl (Apresoline) 10 mg Q6H PRN IV ELEVATED BLOOD PRESSURE; Start at 20:30 Clonidine (Catapres) 0.1 mg Q6H PRN PO ELEVATED BLOOD PRESSURE; Start 05/07/16 at 20:30 Nitroglycerin (Nitroglycerin (Sl Tab) 0.4 Mg) 1 tab Q5M PRN SL ANGINA; Start at 20:30 Gabapentin (Neurontin) 300 mg BID PO Last administered on 05/12/16 09:24; Admin Dose 300 MG; Start 05/07/16 at 21:00 Nortriptyline HCl (Aventyl) 75 mg HS PO Last administered on 05/11/16 20:32; Admin Dose 75 MG; Start 05/07/16 at 21:00 Olanzapine (Zyprexa) 10 mg QHS PO Last administered on 05/11/16 20:31; Admin Dose 10 MG; Start 05/07/16 at 21:00 Trazodone HCl 150 mg 150 mg QHS PO Last administered on 05/11/16 20:33; Admin Dose 150 MG; Start 05/07/16 at 21:00 Ceftriaxone Sodium 50 ml @ 100 mls/hr Q24H IVPB Last administered on 19:19; Admin Dose 100 MLS/HR; Start 05/08/16 at 18:00 Vancomycin HCl/ Sodium Chloride (Vancocin/NS) 250 ml @ 83.333 mls/ hr Q12H IVPB Last administered on 05/12/16 12:02; Admin Dose 83.333 MLS/HR; Start at 23:00 Nicotine (Nicoderm 21 Mg/ 24hr) 1 patch DAILY TRANSDERM ; Start 05/09/16 at 16: 00 Chlordiazepoxide (Librium) 25 mg TID PO Last administered on 05/12/16 13:43; Admin Dose 25 MG; Start 05/09/16 at 18:00 Lorazepam (Ativan) 2 mg Q8H PRN IV ANXIETY; Start 05/12/16 at 17:00 MAURIZIO CHRISTENSEN NP May 12, 2016 14:10
[2016-05-12] MEDS: CEFTRIAXONE 1 GM/50 ML (PMX) 50 ML IVPB SCH (17:53)
[2016-05-12 21:25] VITALS: BP 147/91; RESP 20
[2016-05-12] MEDS: traZODone 50 MG TAB PO SCH (22:02)
[2016-05-12] MEDS: OLANZAPINE 5 MG TAB PO SCH (22:03)
[2016-05-12] MEDS: NORTRIPTYLINE 25 MG CAP PO SCH (22:05)
--- NOTE | 2016-05-13 02:39 | CONS ---
DATE OF ADMISSION: 05/07/2016 DATE OF CONSULTATION: 05/12/2016 TYPE OF CONSULTATION: Surgical. REFERRING PHYSICIAN: Mikie Kirk NP. CHIEF COMPLAINT: 1. Right posterior proximal wrist abscess. 2. Drug abuse history. 3. Anxiety history. 4. Obesity. 5. Right hand cellulitis. HISTORY OF PRESENT ILLNESS: Zeus Birmingham is a 55-year-old male with multiple comorbidities who p resents with swelling and pain of the right hand about 2 days prior to admission that has been getti ng worse in intensity. He injected methamphetamines into the area. He has denied any fevers or chi lls. No chest pain or shortness of breath. No cough, seizure, bloating, nausea, vomiting. No dysu areli. No change in bowel habits. No weight changes. Patient was admitted and placed on antibiotics and the hand has improved significantly; however, he has a collection proximal to the right posterior wrist. Surgical consult is obtained for further ev aluation and treatment. PAST MEDICAL HISTORY: 1. IV/skin pop drug abuse. 2. ADHD. 3. Right hand cellulitis with abscess. 4. BMI 29. 5. Anxiety. 6. History of suicide attempt. 7. STD history. 8. Leukocytosis. 9. Anemia. 10. Urinary tract infection. PAST SURGICAL HISTORY: 1. Tonsillectomy. 2. 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 FAMILY HISTORY: Noncontributory. SOCIAL HISTORY: Drug abuse with meth. Smokes cigarettes. Denies alcohol. REVIEW OF SYSTEMS: A 12-point review of systems negative unless addressed in HPI. PHYSICAL EXAMINATION: VITAL SIGNS: Temperature is 97.8, pulse 90s to 120s, blood pressure 120/80, saturating 96% on room air. GENERAL: Obese, medicated, in no acute distress. HEENT: Pupils are sluggish and reactive. No scleral icterus. Mucous membranes are moist. NECK: Supple, no crepitus. Trachea midline, no JVD. PULMONARY: Normal respiratory effort. HEART: S1, S2 present and tachycardic. ABDOMEN: Soft, obese. EXTREMITIES: No edema. Right posterior arm and proximal wrist with blanching erythema with fluctua nce. Minimally tender. No drainage. No . VASCULAR: Capillary refill is 2 seconds. NEUROLOGIC: Arousable and moves all 4 extremities grossly. PSYCH: Medicated and lethargic but arousable. LABORATORY AND RADIOGRAPHIC: As per chart and HPI. ASSESSMENT AND PLAN: Zeus Birmingham is a 55-year-old male with multiple significant comorbidities. 1. Right posterior hand and arm cellulitis and currently abscess secondary to drug abuse and skin p opping meth. Continue antibiotics, warm compress and will benefit from I and D since this is superf icial. 2. BMI 29. The patient is highly encouraged to optimize diet and exercise to improve his overall h ealth status. 3. Drug abuse history. The patient is highly encouraged to seek rehab to improve his overall healt h. 4. Positive UA with possible UTI on admission, status post antibiotics. 5. Anemia without evidence of acute blood loss, continue monitoring. 6. History of psychiatric disorders with anxiety, ADHD and suicide attempt. Continue medical and p sychiatric optimization. Thank you very much for consulting me in this patient's care. Dictated By: LAZARO CARRASCO/ERMA Conf#: [id number] DID#: [id number]
[2016-05-13] MEDS ORDERED: LIDOCAINE 1%/EPI 1:200,000 10 ML VIAL INJ ONE ×2 (03:00→09:00)
[2016-05-13] MEDS ORDERED: SILVER NITRATE SWAB TOP ONE ×2 (03:00→09:00)
[2016-05-13] MEDS: PANTOPRAZOLE (EC) 40 MG TAB PO SCH (05:39)
[2016-05-13] MEDS: HYDROCODONE/APAP (5/325) TAB PO PRN (05:40)
[2016-05-13 05:54] LABS: ADD SCAN DIFF NO
[2016-05-13 06:04] LABS: BASOPHIL # 0.1 10^3/ul (0.0-0.1); BASOPHILS % 0.7 % (0.0-2.0); EOSINOPHILS # 0.2 10^3/ul (0.0-0.5); EOSINOPHILS % 2.6 % (0.0-7.0); HEMATOCRIT 39.5 % (42.0-52.0); HEMOGLOBIN 13.6 g/dl (14.0-18.0); LYMPHOCYTES # 1.9 10^3/ul (0.8-2.9); LYMPHOCYTES % 27.9 % (15.0-51.0); MEAN CORPUSCULAR HEMOGLOBIN 30.7 pg (29.0-33.0); MEAN CORPUSCULAR HGB CONC 34.4 g/dl (32.0-37.0); MEAN CORPUSCULAR VOLUME 89.2 fl (82.0-101.0); MEAN PLATELET VOLUME 9.5 fl (7.4-10.4); MONOCYTE # 0.8 10^3/ul (0.3-0.9); MONOCYTES % 11.2 % (0.0-11.0); NEUTROPHIL # 3.9 10^3/ul (1.6-7.5); NEUTROPHILS % 56.4 % (39.0-77.0); PLATELET COUNT 334 10^3/UL (140-415); RED BLOOD COUNT 4.43 10^6/ul (4.70-6.10); RED CELL DISTRIBUTION WIDTH 13.2 % (11.5-14.5); WHITE BLOOD COUNT 6.9 10^3/ul (4.8-10.8)
[2016-05-13 06:23] LABS: POTASSIUM 3.8 mmol/L (3.5-5.1)
[2016-05-13 06:26] LABS: CALCIUM 8.9 mg/dl (8.4-10.2); CREATININE 0.79 mg/dl (0.61-1.24)
[2016-05-13 07:54] VITALS: BP 114/72; RESP 16
[2016-05-13] MEDS: NICOTINE (21 MG/24 HR) PATCH TRANSDERM SCH (09:00)
[2016-05-13] MEDS: GABAPENTIN 300 MG CAP PO SCH ×2 (09:07→22:36)
[2016-05-13] MEDS: CHLORDIAZEPOXIDE 25 MG CAP PO SCH ×3 (09:07→22:45)
[2016-05-13] MEDS: HEPARIN 5,000 UNIT/0.5 ML SYG SC SCH ×2 (09:09→22:45)
[2016-05-13] MEDS: SOD CHLORIDE 0.9% 1,000 ML IV SCH ×3 (09:12→20:12)
[2016-05-13] MEDS: VANCOMYCIN 1.5 GM in SOD CHLORIDE 0.9% 250 ML IVPB SCH ×2 (11:08→23:57)
--- NOTE | 2016-05-13 11:18 | PN ---
Date/Time of Note Date/Time of Note DATE: 05/13/16 TIME: 11:16 Assessment/Plan VTE Prophylaxis VTE Prophylaxis Intervention: SCD's Lines/Catheters IV Catheter Type (from Nrsg): Peripheral IV Urinary Cath still in place: No Assessment/Plan Assessment/Plan 1. Right wrist/hand cellulitis.from IVDA, improving, on vancomycin and rocephin , keep left arm elevated, ID following will need more IV abx, will plan for d/c 2. Systemic inflammatory response syndrome secondary to right hand cellulitis. , improved 3. Polysubstance abuse. advise to quit 4. Obesity. 5. History of psychiatric problems. anxiety disorder, ativan prn Plan: ativan 2 mg pO x 1 dose extra now Ativan IV prn IV abx Vancomycin BP stable Afebrile, ID following will keep pt in hospital more IV abx Subjective 24 Hr Interval Summary Free Text/Dictation still c/o hand pain , on ativan prn PO Exam/Review of Systems Vital Signs Vitals Vital Signs Date Time Temp Pulse Resp B/P Pulse Ox O2 Delivery O2 Flow Rate FiO2 05/13/16 07:54 97.6 101 16 114/72 97 05/12/16 08:30 Room Air Intake and Output 05/12/16 05/12/16 05/13/16 15:00 23:00 07:00 Intake Total 1130 ml 1500 ml Balance 1130 ml 1500 ml Exam Constitutional: alert, oriented, well developed Psych: anxiety Head: atraumatic, normocephalic Eyes: EOMI, PERRL, nl conjunctiva, nl lids ENMT: nl external ears & nose, nl lips & teeth, nl nasal mucosa & septum Neck: non-tender, supple Respiratory: clear to auscultation, normal air movement, No congested cough, No crackles/rales, No diminished breath sounds, No intercostal retraction, No labored breathing, No other, No respirations, No tactile fremitus, No wheezing Cardiovascular: nl pulses, regular rate and rhythm, No S3, No S4, No bruits, No diastolic murmur, No edema, No gallop, No irregular rhythm, No jugular venous distention (JVD), No murmurs/extra sounds, No other, No rub, No systolic murmur Gastrointestinal: nl liver, spleen, non-tender, soft, No ascites, No bowel sounds, No distended, No firm, No hepatomegaly, No mass , No other, No rebound or guarding, No splenomegaly, No surgical scars, No tender Musculoskeletal: nl extremities to inspection, No joint tenderness, No muscle tone, No muscle weakness, No nl gait and stance, No other, No range of motion, No spine non-tender, No swelling Extremities: normal pulses, other (right wrist with a lesion with central healing eschar, redness around with swelling), No calf tenderness, No clubbing, No cyanosis, No palpable cord, No pitting pedal edema Neurological: AGITATOR OPERATOR II-XII intact, nl mental status, nl speech, nl strength Skin: nl turgor Results Result Diagram: 05/13/1653005/13/16530 Results 24 hrs Laboratory Tests Test 05/13/16 05:31 White Blood Count 6.9 # Red Blood Count 4.43 L Hemoglobin 13.6 L Hematocrit 39.5 L Mean Corpuscular Volume 89.2 Mean Corpuscular Hemoglobin 30.7 Mean Corpuscular Hemoglobin Concent 34.4 Red Cell Distribution Width 13.2 Platelet Count 334 Mean Platelet Volume 9.5 Neutrophils % 56.4 Lymphocytes % 27.9 Monocytes % 11.2 H Eosinophils % 2.6 Basophils % 0.7 Nucleated Red Blood Cells % 0.0 Neutrophils # 3.9 Lymphocytes # 1.9 Monocytes # 0.8 Eosinophils # 0.2 Basophils # 0.1 Nucleated Red Blood Cells # 0.0 Sodium Level 142 Potassium Level 3.8 Chloride Level 105 Carbon Dioxide Level 25 Anion Gap 16 Blood Urea Nitrogen 10 Creatinine 0.79 Glucose Level 98 Calcium Level 8.9 Medications Medications Current Medications Ondansetron HCl (Zofran Inj) 4 mg Q6H PRN IV NAUSEA AND/OR VOMITING; Start at 20:30 Acetaminophen (Tylenol Tab) 650 mg Q6H PRN PO PAIN LEVEL 1-3 OR FEVER; Start at 20:30 Acetaminophen/ Hydrocodone Bitart ([place] (5/325)) 1 tab Q6H PRN PO MODERATE PAIN LEVEL 4-6 Last administered on 05/13/16t 05:40; Admin Dose 1 TAB; Start at 20:30 Morphine Sulfate (morphine) 2 mg Q4H PRN IV SEVERE PAIN LEVEL 7-10; Start 05/07 at 20:30 Docusate Sodium (Colace) 100 mg Q12H PRN PO CONSTIPATION; Start 05/07/16 at 20: 30 Sodium Biphosphate/ Sodium Phosphate (Fleet Enema) 133 ml DAILY PRN [place] CONSTIPATION; Start 05/07/16 at 20:30 Pantoprazole (Protonix Tab) 40 mg DAILY@06 PO Last administered on 05/13/16 05 :39; Admin Dose 40 MG; Start 05/08/16 at 06:00 Heparin Sodium (Porcine) 5000 unit 5,000 unit Q12 SC Last administered on 09:09; Admin Dose 5,000 UNIT; Start 05/07/16 at 21:00 Sodium Chloride (NS) 1,000 ml @ 100 mls/hr Q10H IV Last administered on 21:25; Admin Dose 100 MLS/HR; Start 05/07/16 at 20:08 Vancomycin HCl (Vanco Iv Per Pharmacy) VANCOMYCIN PER PHARMACY NOTE XX ; Start 05/07/16 at 20:30 Hydralazine HCl (Apresoline) 10 mg Q6H PRN IV ELEVATED BLOOD PRESSURE; Start at 20:30 Clonidine (Catapres) 0.1 mg Q6H PRN PO ELEVATED BLOOD PRESSURE; Start 05/07/16 at 20:30 Nitroglycerin (Nitroglycerin (Sl Tab) 0.4 Mg) 1 tab Q5M PRN SL ANGINA; Start at 20:30 Gabapentin (Neurontin) 300 mg BID PO Last administered on 05/13/16 09:07; Admin Dose 300 MG; Start 05/07/16 at 21:00 Nortriptyline HCl (Aventyl) 75 mg HS PO Last administered on 05/12/16 22:05; Admin Dose 75 MG; Start 05/07/16 at 21:00 Olanzapine (Zyprexa) 10 mg QHS PO Last administered on 05/12/16 22:03; Admin Dose 10 MG; Start 05/07/16 at 21:00 Trazodone HCl 150 mg 150 mg QHS PO Last administered on 05/12/16 22:02; Admin Dose 150 MG; Start 05/07/16 at 21:00 Ceftriaxone Sodium 50 ml @ 100 mls/hr Q24H IVPB Last administered on 17:53; Admin Dose 100 MLS/HR; Start 05/08/16 at 18:00 Vancomycin HCl/ Sodium Chloride (Vancocin/NS) 250 ml @ 83.333 mls/ hr Q12H IVPB Last administered on 05/13/16 11:08; Admin Dose 83.333 MLS/HR; Start at 23:00 Nicotine (Nicoderm 21 Mg/ 24hr) 1 patch DAILY TRANSDERM ; Start 05/09/16 at 16: 00 Chlordiazepoxide (Librium) 25 mg TID PO Last administered on 05/13/16 09:07; Admin Dose 25 MG; Start 05/09/16 at 18:00 Lorazepam (Ativan) 2 mg Q8H PRN IV ANXIETY Last administered on 05/12/16 22:44 ; Admin Dose 2 MG; Start 05/12/16 at 17:00 RICK GARDNER MD May 13, 2016 11:17
--- NOTE | 2016-05-13 11:19 | PDOCDIS ---
Discharge Instructions CONDITION Patient Condition: Good HOME CARE INSTRUCTIONS: Special Diet: low fat low cholesterol ACTIVITY: Activity Restrictions: Slowly Increase Activity Rest between Activity Avoid heavy lifting Avoid Heavy Housework FOLLOW UP/APPOINTMENTS Appointments follow up with his own PMD through HMO insurance in 1-2 week. Follow up with ID as outpatient 2-3 weeks after discharge ( he will need a referral from his PMD to see ID as outpatient) RICK GARDNER MD May 13, 2016 11:18
[2016-05-13] MEDS: LORAZEPAM 2 MG INJ IV PRN (13:11)
--- NOTE | 2016-05-13 14:19 | CONS ---
Date/Time of Note Date/Time of Note DATE: 05/13/16 TIME: 14:17 Assessment/Plan Assessment/Plan Chief Complaint/Hosp Course SUBJECTIVE: The patient is alert No fevers, NAD. ANTIMICROBIALS: 1. Vancomycin. 2. Rocephin. PHYSICAL EXAMINATION: GENERAL: Well-developed, middle-aged white man who is alert, in no distress. HEENT: Head atraumatic, normocephalic. Sclerae anicteric. Buccal mucosa pink. NECK: Supple. CHEST: Rise symmetrical. Breath sounds clear. HEART: S1, S2. ABDOMEN: Soft. Bowel tones present. EXTREMITIES: With right hand improved erythema and edema. ASSESSMENT: 1. Right hand cellulitis==> improved, now with area of fluctuance on the wrist. 2. Systemic inflammatory response syndrome secondary to right hand cellulitis. 3. Polysubstance abuse. 4. Obesity. 5. History of psychiatric problems. PLAN: Improving. R hand swelling resolved, area of fluctuance on his wrist persists, pending i&d, anticipate dc on oral Bactrim DW pt Problems: Consultation Date/Type/Reason Admit Date/Time May 07, 2016 at 17:59 Type of Consultation: ID Referring Provider: JONNATHAN CHRISTIANSON Exam/Review of Systems Vital Signs Vitals Vital Signs Date Time Temp Pulse Resp B/P Pulse Ox O2 Delivery O2 Flow Rate FiO2 05/13/16 07:54 97.6 101 16 114/72 97 05/12/16 08:30 Room Air Intake and Output 05/12/16 05/12/16 05/13/16 15:00 23:00 07:00 Intake Total 1130 ml 1500 ml Balance 1130 ml 1500 ml Results Result Diagram: 05/13/16 0531 05/13/16 0531 Results 24 hrs Laboratory Tests Test 05/13/16 05:31 White Blood Count 6.9 # Red Blood Count 4.43 L Hemoglobin 13.6 L Hematocrit 39.5 L Mean Corpuscular Volume 89.2 Mean Corpuscular Hemoglobin 30.7 Mean Corpuscular Hemoglobin Concent 34.4 Red Cell Distribution Width 13.2 Platelet Count 334 Mean Platelet Volume 9.5 Neutrophils % 56.4 Lymphocytes % 27.9 Monocytes % 11.2 H Eosinophils % 2.6 Basophils % 0.7 Nucleated Red Blood Cells % 0.0 Neutrophils # 3.9 Lymphocytes # 1.9 Monocytes # 0.8 Eosinophils # 0.2 Basophils # 0.1 Nucleated Red Blood Cells # 0.0 Sodium Level 142 Potassium Level 3.8 Chloride Level 105 Carbon Dioxide Level 25 Anion Gap 16 Blood Urea Nitrogen 10 Creatinine 0.79 Glucose Level 98 Calcium Level 8.9 Medications Medications Current Medications Ondansetron HCl (Zofran Inj) 4 mg Q6H PRN IV NAUSEA AND/OR VOMITING; Start at 20:30 Acetaminophen (Tylenol Tab) 650 mg Q6H PRN PO PAIN LEVEL 1-3 OR FEVER; Start at 20:30 Acetaminophen/ Hydrocodone Bitart ([place] (5/325)) 1 tab Q6H PRN PO MODERATE PAIN LEVEL 4-6 Last administered on 05/13/16 05:40; Admin Dose 1 TAB; Start at 20:30 Morphine Sulfate (morphine) 2 mg Q4H PRN IV SEVERE PAIN LEVEL 7-10; Start 05/07 at 20:30 Docusate Sodium (Colace) 100 mg Q12H PRN PO CONSTIPATION; Start 05/07/16 at 20: 30 Sodium Biphosphate/ Sodium Phosphate (Fleet Enema) 133 ml DAILY PRN [place] CONSTIPATION; Start 05/07/16 at 20:30 Pantoprazole (Protonix Tab) 40 mg DAILY@06 PO Last administered on 05/13/16 05 :39; Admin Dose 40 MG; Start 05/08/16 at 06:00 Heparin Sodium (Porcine) 5000 unit 5,000 unit Q12 SC Last administered on 09:09; Admin Dose 5,000 UNIT; Start 05/07/16 at 21:00 Sodium Chloride (NS) 1,000 ml @ 100 mls/hr Q10H IV Last administered on 21:25; Admin Dose 100 MLS/HR; Start 05/07/16 at 20:08 Vancomycin HCl (Vanco Iv Per Pharmacy) VANCOMYCIN PER PHARMACY NOTE XX ; Start 05/07/16 at 20:30 Hydralazine HCl (Apresoline) 10 mg Q6H PRN IV ELEVATED BLOOD PRESSURE; Start at 20:30 Clonidine (Catapres) 0.1 mg Q6H PRN PO ELEVATED BLOOD PRESSURE; Start 05/07/16 at 20:30 Nitroglycerin (Nitroglycerin (Sl Tab) 0.4 Mg) 1 tab Q5M PRN SL ANGINA; Start at 20:30 Gabapentin (Neurontin) 300 mg BID PO Last administered on 05/13/16 09:07; Admin Dose 300 MG; Start 05/07/16 at 21:00 Nortriptyline HCl (Aventyl) 75 mg HS PO Last administered on 05/12/16 22:05; Admin Dose 75 MG; Start 05/07/16 at 21:00 Olanzapine (Zyprexa) 10 mg QHS PO Last administered on 05/12/16 22:03; Admin Dose 10 MG; Start 05/07/16 at 21:00 Trazodone HCl 150 mg 150 mg QHS PO Last administered on 05/12/16 22:02; Admin Dose 150 MG; Start 05/07/16 at 21:00 Ceftriaxone Sodium 50 ml @ 100 mls/hr Q24H IVPB Last administered on 17:53; Admin Dose 100 MLS/HR; Start 05/08/16 at 18:00 Vancomycin HCl/ Sodium Chloride (Vancocin/NS) 250 ml @ 83.333 mls/ hr Q12H IVPB Last administered on 05/13/16 11:08; Admin Dose 83.333 MLS/HR; Start at 23:00 Nicotine (Nicoderm 21 Mg/ 24hr) 1 patch DAILY TRANSDERM ; Start 05/09/16 at 16: 00 Chlordiazepoxide (Librium) 25 mg TID PO Last administered on 05/13/16 13:06; Admin Dose 25 MG; Start 05/09/16 at 18:00 Lorazepam (Ativan) 2 mg Q8H PRN IV ANXIETY Last administered on 05/13/16 13:11 ; Admin Dose 2 MG; Start 05/12/16 at 17:00 Miscellaneous Information (*Rx Drug Level Order Reminder*) VANCOMYCIN TROUGH AT 2200 ONCE ONCE XX ; Start 05/13/16 at 22:00; Stop 05/13/16 at 22:01 MAURIZIO CHRISTENSEN NP May 13, 2016 14:19
[2016-05-13] MEDS: CEFTRIAXONE 1 GM/50 ML (PMX) 50 ML IVPB SCH (17:55)
[2016-05-13 22:10] VITALS: BP 109/61; RESP 19
[2016-05-13] MEDS: NORTRIPTYLINE 25 MG CAP PO SCH (22:37)
[2016-05-13] MEDS: OLANZAPINE 5 MG TAB PO SCH (22:37)
[2016-05-13] MEDS: traZODone 50 MG TAB PO SCH (22:38)
[2016-05-14] MEDS: SODIUM HYPOCHLORITE 0.125% 473 ML BTL IRR SCH ×2 (00:06→09:00)
[2016-05-14] MEDS: PANTOPRAZOLE (EC) 40 MG TAB PO SCH (05:29)
[2016-05-14 07:14] LABS: ADD SCAN DIFF NO
[2016-05-14 07:23] LABS: BASOPHILS % 0.5 % (0.0-2.0); EOSINOPHILS # 0.2 10^3/ul (0.0-0.5); EOSINOPHILS % 2.8 % (0.0-7.0); HEMATOCRIT 37.7 % (42.0-52.0); HEMOGLOBIN 12.7 g/dl (14.0-18.0); LYMPHOCYTES # 2.6 10^3/ul (0.8-2.9); LYMPHOCYTES % 40.6 % (15.0-51.0); MEAN CORPUSCULAR HEMOGLOBIN 30.5 pg (29.0-33.0); MEAN CORPUSCULAR HGB CONC 33.7 g/dl (32.0-37.0); MEAN CORPUSCULAR VOLUME 90.6 fl (82.0-101.0); MEAN PLATELET VOLUME 10.3 fl (7.4-10.4); MONOCYTE # 0.6 10^3/ul (0.3-0.9); MONOCYTES % 9.4 % (0.0-11.0); NEUTROPHIL # 2.9 10^3/ul (1.6-7.5); NEUTROPHILS % 45.8 % (39.0-77.0); PLATELET COUNT 355 10^3/UL (140-415); RED BLOOD COUNT 4.16 10^6/ul (4.70-6.10); RED CELL DISTRIBUTION WIDTH 13.2 % (11.5-14.5); WHITE BLOOD COUNT 6.4 10^3/ul (4.8-10.8)
--- NOTE | 2016-05-14 07:35 | PN ---
Date/Time of Note Date/Time of Note DATE: 05/13/16 TIME: 17:34 Assessment/Plan Lines/Catheters IV Catheter Type (from [facility], [place]): Peripheral IV Hob[facility] in Place (from [facility], [place]): No Assessment/Plan Chief Complaint/Hosp Course 1. Right posterior hand and arm cellulitis and currently abscess secondary to drug abuse and skin popping meth. -antibiotics, -warm compress -I&D 2. BMI 29. The patient is highly encouraged to optimize diet and exercise to improve his overall health status. 3. Drug abuse history. The patient is highly encouraged to seek rehab to improve his overall health. 4. Positive UA with possible UTI on admission, status post antibiotics. 5. Anemia without evidence of acute blood loss, continue monitoring. 6. History of psychiatric disorders with anxiety, ADHD and suicide attempt. Continue medical and psychiatric optimization. Thank you Problems: Subjective 24 Hr Interval Summary No f/c/n/v. No cp/sob. No cough. No carter/dizzy/visual or neuro changes. No dysuria. No abdominal pain. Right arm pain. Exam/Review of Systems Vital Signs Vitals Vital Signs Date Time Temp Pulse Resp B/P Pulse Ox O2 Delivery O2 Flow Rate FiO2 05/14/16 08:36 97.2 20 20 106/65 97 05/12/16 08:30 Room Air Intake and Output 05/13/16 05/13/16 05/14/16 15:00 23:00 07:00 Intake Total 1900 ml 1670 ml Balance 1900 ml 1670 ml Exam Free Text/Dictation GENERAL: Obese, medicated, in no acute distress. HEENT: Pupils are sluggish and reactive. No scleral icterus. Mucous membranes are moist. NECK: Supple, no crepitus. Trachea midline, no JVD. PULMONARY: Normal respiratory effort. HEART: S1, S2 present and tachycardic. ABDOMEN: Soft, obese. EXTREMITIES: No edema. Right posterior arm and proximal wrist with blanching erythema with fluctuance. Minimally tender. No drainage. VASCULAR: Capillary refill is 2 seconds. NEUROLOGIC: Arousable and moves all 4 extremities grossly. PSYCH: Medicated and lethargic but arousable. Results Result Diagram: 05/14/16 0541 05/14/16 0541 LAZARO QUIROS MD May 14, 2016 07:35
--- NOTE | 2016-05-14 07:38 | OPR ---
Date/Time of Note Date/Time of Note DATE: 05/14/16 TIME: 07:35 Operative Report Procedure Date: May 13, 2016 Preoperative Diagnosis Right arm abscess Postoperative Diagnosis Right arm abscess Operation Performed Incision and drainage of right arm abscess (proximal to wrist) Local anesthetic [place], [id number] Surgeon: LZAARO QUIROS MD Anesthesia: other (Local) Estimated Blood Loss: minimal Specimens culture Tubes/Drains 4x4 gauze Complications: None Pt Condition Post Procedure: stable Disposition: other (room) Indications per notes. r/b/a as per usual and customary and patient fully agrees Procedure Description Areap prepped and draped sterilly. Time out done. local anesthetic injected at site. incision was made and pus drained. wound irrigated and packed with gauze and betadine. pt tolerated procedure well. all counts were correct at this time. LAZARO QUIROS MD May 14, 2016 07:38
[2016-05-14 07:44] LABS: POTASSIUM 3.8 mmol/L (3.5-5.1)
[2016-05-14 07:46] LABS: CREATININE 0.9 mg/dl (0.61-1.24)
[2016-05-14 08:36] VITALS: BP 106/65; RESP 20
[2016-05-14 08:56] LABS: CALCIUM 8.7 mg/dl (8.4-10.2)
[2016-05-14] MEDS: NICOTINE (21 MG/24 HR) PATCH TRANSDERM SCH (09:00)
[2016-05-14] MEDS: GABAPENTIN 300 MG CAP PO SCH ×2 (09:06→21:15)
[2016-05-14] MEDS: CHLORDIAZEPOXIDE 25 MG CAP PO SCH ×3 (09:06→21:14)
[2016-05-14] MEDS: HEPARIN 5,000 UNIT/0.5 ML SYG SC SCH ×2 (09:08→21:17)
--- NOTE | 2016-05-14 11:00 | PN ---
Date/Time of Note Date/Time of Note DATE: 05/14/16 TIME: 10:57 Assessment/Plan VTE Prophylaxis VTE Prophylaxis Intervention: SCD's Lines/Catheters IV Catheter Type (from Nrs): Peripheral IV Urinary Cath still in place: No Assessment/Plan Assessment/Plan 1. Right wrist/hand cellulitis with abscess s/p I &D wound cx pending, ID and General surgery on case 2. Systemic inflammatory response syndrome secondary to right hand cellulitis 3. Polysubstance abuse. advise to quit 4. Obesity. 5. History of psychiatric problems. anxiety disorder, ativan prn Plan: s/p I &D, wound cx pending BP stable will wait until wound cx result available to decide about Abx therapy on discharge appreciate general surgery help ID following Ativan prn Subjective 24 Hr Interval Summary Free Text/Dictation s/p bedside I &D, wound cx pending , Afebrile, still c/o wrist pain Exam/Review of Systems Vital Signs Vitals Vital Signs Date Time Temp Pulse Resp B/P Pulse Ox O2 Delivery O2 Flow Rate FiO2 05/14/16 08:36 97.2 20 20 106/65 97 05/12/16 08:30 Room Air Intake and Output 05/13/16 05/13/16 05/14/16 14:59 22:59 06:59 Intake Total 1900 ml 1670 ml Balance 1900 ml 1670 ml Exam GENERAL: Well-developed, middle-aged white man who is alert, in no distress. HEENT: Head atraumatic, normocephalic. Sclerae anicteric. Buccal mucosa pink. NECK: Supple. CHEST: Rise symmetrical. Breath sounds clear. HEART: S1, S2. ABDOMEN: Soft. Bowel tones present. EXTREMITIES: With right hand improved erythema and edema. Results Result Diagram: 05/14/16 0541 05/14/16 0541 Results 24 hrs Laboratory Tests Test 05/13/16 22:30 05/14/16 05:41 Vancomycin Level Trough 12.6 White Blood Count 6.4 Red Blood Count 4.16 L Hemoglobin 12.7 L Hematocrit 37.7 L Mean Corpuscular Volume 90.6 Mean Corpuscular Hemoglobin 30.5 Mean Corpuscular Hemoglobin Concent 33.7 Red Cell Distribution Width 13.2 Platelet Count 355 Mean Platelet Volume 10.3 Neutrophils % 45.8 Lymphocytes % 40.6 Monocytes % 9.4 Eosinophils % 2.8 Basophils % 0.5 Nucleated Red Blood Cells % 0.0 Neutrophils # 2.9 Lymphocytes # 2.6 Monocytes # 0.6 Eosinophils # 0.2 Basophils # 0.0 Nucleated Red Blood Cells # 0.0 Sodium Level 144 Potassium Level 3.8 Chloride Level 106 Carbon Dioxide Level 26 Anion Gap 16 Blood Urea Nitrogen 12 Creatinine 0.90 Glucose Level 98 Calcium Level 8.7 Medications Medications Current Medications Ondansetron HCl (Zofran Inj) 4 mg Q6H PRN IV NAUSEA AND/OR VOMITING; Start at 20:30 Acetaminophen (Tylenol Tab) 650 mg Q6H PRN PO PAIN LEVEL 1-3 OR FEVER; Start at 20:30 Acetaminophen/ Hydrocodone Bitart ([place] (5/325)) 1 tab Q6H PRN PO MODERATE PAIN LEVEL 4-6 Last administered on 05/13/16 05:40; Admin Dose 1 TAB; Start at 20:30 Morphine Sulfate (morphine) 2 mg Q4H PRN IV SEVERE PAIN LEVEL 7-10 Last administered on 05/13/16 22:37; Admin Dose 2 MG; Start 05/07/16 at 20:30 Docusate Sodium (Colace) 100 mg Q12H PRN PO CONSTIPATION; Start 05/07/16 at 20: 30 Sodium Biphosphate/ Sodium Phosphate (Fleet Enema) 133 ml DAILY PRN [place] CONSTIPATION; Start 05/07/16 at 20:30 Pantoprazole (Protonix Tab) 40 mg DAILY@06 PO Last administered on 05/14/16 05 :29; Admin Dose 40 MG; Start 05/08/16 at 06:00 Heparin Sodium (Porcine) 5000 unit 5,000 unit Q12 SC Last administered on 09:08; Admin Dose 5,000 UNIT; Start 05/07/16 at 21:00 Sodium Chloride (NS) 1,000 ml @ 100 mls/hr Q10H IV Last administered on 20:12; Admin Dose 100 MLS/HR; Start 05/07/16 at 20:08 Vancomycin HCl (Vanco Iv Per Pharmacy) VANCOMYCIN PER PHARMACY NOTE XX ; Start 05/07/16 at 20:30 Hydralazine HCl (Apresoline) 10 mg Q6H PRN IV ELEVATED BLOOD PRESSURE; Start at 20:30 Clonidine (Catapres) 0.1 mg Q6H PRN PO ELEVATED BLOOD PRESSURE; Start 05/07/16 at 20:30 Nitroglycerin (Nitroglycerin (Sl Tab) 0.4 Mg) 1 tab Q5M PRN SL ANGINA; Start at 20:30 Gabapentin (Neurontin) 300 mg BID PO Last administered on 05/14/16 09:06; Admin Dose 300 MG; Start 05/07/16 at 21:00 Nortriptyline HCl (Aventyl) 75 mg HS PO Last administered on 05/13/16 22:37; Admin Dose 75 MG; Start 05/07/16 at 21:00 Olanzapine (Zyprexa) 10 mg QHS PO Last administered on 05/13/16 22:37; Admin Dose 10 MG; Start 05/07/16 at 21:00 Trazodone HCl 150 mg 150 mg QHS PO Last administered on 05/13/16 22:38; Admin Dose 150 MG; Start 05/07/16 at 21:00 Ceftriaxone Sodium 50 ml @ 100 mls/hr Q24H IVPB Last administered on 17:55; Admin Dose 100 MLS/HR; Start 05/08/16 at 18:00 Vancomycin HCl/ Sodium Chloride (Vancocin/NS) 250 ml @ 83.333 mls/ hr Q12H IVPB Last administered on 05/13/16 23:57; Admin Dose 83.333 MLS/HR; Start at 23:00 Nicotine (Nicoderm 21 Mg/ 24hr) 1 patch DAILY TRANSDERM ; Start 05/09/16 at 16: 00 Chlordiazepoxide (Librium) 25 mg TID PO Last administered on 05/14/16 09:06; Admin Dose 25 MG; Start 05/09/16 at 18:00 Lorazepam (Ativan) 2 mg Q8H PRN IV ANXIETY Last administered on 05/13/16 13:11 ; Admin Dose 2 MG; Start 05/12/16 at 17:00 Sodium Hypochlorite (Dakin'S (1/4 Strength)) 1 applic DAILY IRR Last administered on 05/14/16 00:06; Admin Dose 1 APPLIC; Start 05/13/16 at 23:30 RICK GARDNER MD May 14, 2016 11:00
[2016-05-14] MEDS: VANCOMYCIN 1.5 GM in SOD CHLORIDE 0.9% 250 ML IVPB SCH ×2 (11:36→23:33)
[2016-05-14] MEDS: SOD CHLORIDE 0.9% 1,000 ML IV SCH ×2 (12:08→18:01)
--- NOTE | 2016-05-14 12:53 | CONS ---
Date/Time of Note Date/Time of Note DATE: 05/14/16 TIME: 12:51 Assessment/Plan Assessment/Plan Chief Complaint/Hosp Course SUBJECTIVE: Sleeping, nad ANTIMICROBIALS: 1. Vancomycin. 2. Rocephin. PHYSICAL EXAMINATION: GENERAL: Well-developed, middle-aged white man who is alert, in no distress. HEENT: Head atraumatic, normocephalic. Sclerae anicteric. Buccal mucosa pink. NECK: Supple. CHEST: Rise symmetrical. Breath sounds clear. HEART: S1, S2. ABDOMEN: Soft. Bowel tones present. EXTREMITIES: right wrist dsg intact ASSESSMENT: 1. Right hand cellulitis==> s/p i&d 05/13/16 2. Systemic inflammatory response syndrome secondary to right hand cellulitis. 3. Polysubstance abuse. 4. Obesity. 5. History of psychiatric problems. PLAN: Stable, continue abx, await for cx, anticipate dc on oral Bactrim, surgical rec-s DW staff Problems: Consultation Date/Type/Reason Admit Date/Time May 07, 2016 at 17:59 Type of Consultation: ID Referring Provider: JONNATHAN CHRISTIANSON Exam/Review of Systems Vital Signs Vitals Vital Signs Date Time Temp Pulse Resp B/P Pulse Ox O2 Delivery O2 Flow Rate FiO2 05/14/16 08:36 97.2 20 20 106/65 97 05/12/16 08:30 Room Air Intake and Output 05/13/16 05/13/16 05/14/16 15:00 23:00 07:00 Intake Total 1900 ml 1670 ml Balance 1900 ml 1670 ml Results Result Diagram: 05/14/16 0541 05/14/16 0541 Results 24 hrs Laboratory Tests Test 05/13/16 22:30 05/14/16 05:41 Vancomycin Level Trough 12.6 White Blood Count 6.4 Red Blood Count 4.16 L Hemoglobin 12.7 L Hematocrit 37.7 L Mean Corpuscular Volume 90.6 Mean Corpuscular Hemoglobin 30.5 Mean Corpuscular Hemoglobin Concent 33.7 Red Cell Distribution Width 13.2 Platelet Count 355 Mean Platelet Volume 10.3 Neutrophils % 45.8 Lymphocytes % 40.6 Monocytes % 9.4 Eosinophils % 2.8 Basophils % 0.5 Nucleated Red Blood Cells % 0.0 Neutrophils # 2.9 Lymphocytes # 2.6 Monocytes # 0.6 Eosinophils # 0.2 Basophils # 0.0 Nucleated Red Blood Cells # 0.0 Sodium Level 144 Potassium Level 3.8 Chloride Level 106 Carbon Dioxide Level 26 Anion Gap 16 Blood Urea Nitrogen 12 Creatinine 0.90 Glucose Level 98 Calcium Level 8.7 Medications Medications Current Medications Ondansetron HCl (Zofran Inj) 4 mg Q6H PRN IV NAUSEA AND/OR VOMITING; Start at 20:30 Acetaminophen (Tylenol Tab) 650 mg Q6H PRN PO PAIN LEVEL 1-3 OR FEVER; Start at 20:30 Acetaminophen/ Hydrocodone Bitart ([place] (5/325)) 1 tab Q6H PRN PO MODERATE PAIN LEVEL 4-6 Last administered on 05/13/16 05:40; Admin Dose 1 TAB; Start at 20:30 Morphine Sulfate (morphine) 2 mg Q4H PRN IV SEVERE PAIN LEVEL 7-10 Last administered on 05/13/16 22:37; Admin Dose 2 MG; Start 05/07/16 at 20:30 Docusate Sodium (Colace) 100 mg Q12H PRN PO CONSTIPATION; Start 05/07/16 at 20: 30 Sodium Biphosphate/ Sodium Phosphate (Fleet Enema) 133 ml DAILY PRN [place] CONSTIPATION; Start 05/07/16 at 20:30 Pantoprazole (Protonix Tab) 40 mg DAILY@06 PO Last administered on 05/14/16 05 :29; Admin Dose 40 MG; Start 05/08/16 at 06:00 Heparin Sodium (Porcine) 5000 unit 5,000 unit Q12 SC Last administered on 09:08; Admin Dose 5,000 UNIT; Start 05/07/16 at 21:00 Sodium Chloride (NS) 1,000 ml @ 100 mls/hr Q10H IV Last administered on 20:12; Admin Dose 100 MLS/HR; Start 05/07/16 at 20:08 Vancomycin HCl (Vanco Iv Per Pharmacy) VANCOMYCIN PER PHARMACY NOTE XX ; Start 05/07/16 at 20:30 Hydralazine HCl (Apresoline) 10 mg Q6H PRN IV ELEVATED BLOOD PRESSURE; Start at 20:30 Clonidine (Catapres) 0.1 mg Q6H PRN PO ELEVATED BLOOD PRESSURE; Start 05/07/16 at 20:30 Nitroglycerin (Nitroglycerin (Sl Tab) 0.4 Mg) 1 tab Q5M PRN SL ANGINA; Start at 20:30 Gabapentin (Neurontin) 300 mg BID PO Last administered on 05/14/16 09:06; Admin Dose 300 MG; Start 05/07/16 at 21:00 Nortriptyline HCl (Aventyl) 75 mg HS PO Last administered on 05/13/16 22:37; Admin Dose 75 MG; Start 05/07/16 at 21:00 Olanzapine (Zyprexa) 10 mg QHS PO Last administered on 05/13/16 22:37; Admin Dose 10 MG; Start 05/07/16 at 21:00 Trazodone HCl 150 mg 150 mg QHS PO Last administered on 05/13/16 22:38; Admin Dose 150 MG; Start 05/07/16 at 21:00 Ceftriaxone Sodium 50 ml @ 100 mls/hr Q24H IVPB Last administered on 17:55; Admin Dose 100 MLS/HR; Start 05/08/16 at 18:00 Vancomycin HCl/ Sodium Chloride (Vancocin/NS) 250 ml @ 83.333 mls/ hr Q12H IVPB Last administered on 05/14/16 11:36; Admin Dose 83.333 MLS/HR; Start at 23:00 Nicotine (Nicoderm 21 Mg/ 24hr) 1 patch DAILY TRANSDERM ; Start 05/09/16 at 16: 00 Chlordiazepoxide (Librium) 25 mg TID PO Last administered on 05/14/16 09:06; Admin Dose 25 MG; Start 05/09/16 at 18:00 Lorazepam (Ativan) 2 mg Q8H PRN IV ANXIETY Last administered on 05/13/16 13:11 ; Admin Dose 2 MG; Start 05/12/16 at 17:00 Sodium Hypochlorite (Dakin'S (1/4 Strength)) 1 applic DAILY IRR Last administered on 05/14/16 00:06; Admin Dose 1 APPLIC; Start 05/13/16 at 23:30 MAURIZIO CHRISTENSEN NP May 14, 2016 12:53
[2016-05-14] MEDS: CEFTRIAXONE 1 GM/50 ML (PMX) 50 ML IVPB SCH (17:50)
[2016-05-14] MEDS: HYDROCODONE/APAP (5/325) TAB PO PRN (18:17)
[2016-05-14] MEDS: NA PHOSPHATE/BIPHOS 133 ML ENEMA PR PRN (19:44)
[2016-05-14] MEDS: LORAZEPAM 2 MG INJ IV PRN (19:44)
--- NOTE | 2016-05-14 19:47 | PN ---
Date/Time of Note Date/Time of Note DATE: 05/14/16 TIME: 19:46 Assessment/Plan Lines/Catheters IV Catheter Type (from [facility]): Peripheral IV [facility] in Place (from [facility]): No Assessment/Plan Chief Complaint/Hosp Course 1. Right posterior hand and arm cellulitis and abscess 2nd skin popping of Meth s/p I&D 05/13 -check culture -antibiotics, -warm compress -nutrition optimization -vit c 2. BMI 29. The patient is highly encouraged to optimize diet and exercise to improve his overall health status. 3. Drug abuse history. The patient is highly encouraged to seek rehab to improve his overall health. 4. Positive UA with possible UTI on admission, status post antibiotics. 5. Anemia without evidence of acute blood loss, continue monitoring. 6. History of psychiatric disorders with anxiety, ADHD and suicide attempt. Continue medical and psychiatric optimization. Thank you Problems: Subjective 24 Hr Interval Summary s/p I&D 05/13. No f/c/n/v. No cp/sob. No cough. No carter/dizzy/visual or neuro changes. No dysuria. No abdominal pain. Right arm pain improved. Exam/Review of Systems Vital Signs Vitals Vital Signs Date Time Temp Pulse Resp B/P Pulse Ox O2 Delivery O2 Flow Rate FiO2 05/14/16 08:36 97.2 20 20 106/65 97 05/12/16 08:30 Room Air Intake and Output 05/13/16 05/13/16 05/14/16 15:00 23:00 07:00 Intake Total 1900 ml 1670 ml Balance 1900 ml 1670 ml Exam Free Text/Dictation GENERAL: Obese, medicated, in no acute distress. HEENT: Pupils are sluggish and reactive. No scleral icterus. Mucous membranes are moist. NECK: Supple, no crepitus. Trachea midline, no JVD. PULMONARY: Normal respiratory effort. HEART: S1, S2 present and tachycardic. ABDOMEN: Soft, obese. EXTREMITIES: No edema. Right posterior arm and proximal wrist wound. Minimally tender VASCULAR: Capillary refill is 2 seconds. NEUROLOGIC: Arousable and moves all 4 extremities grossly. PSYCH: Medicated and lethargic but arousable. Results Result Diagram: 05/14/16 0541 05/14/16 0541 LAZARO QUIROS MD May 14, 2016 19:47
[2016-05-14 20:38] VITALS: BP 116/75; RESP 20
[2016-05-14] MEDS: OLANZAPINE 5 MG TAB PO SCH (21:14)
[2016-05-14] MEDS: NORTRIPTYLINE 25 MG CAP PO SCH (21:15)
[2016-05-14] MEDS: traZODone 50 MG TAB PO SCH (21:15)
[2016-05-15] MEDS: SOD CHLORIDE 0.9% 1,000 ML IV SCH ×2 (05:42→08:08)
[2016-05-15] MEDS: PANTOPRAZOLE (EC) 40 MG TAB PO SCH (05:42)
[2016-05-15 06:28] LABS: ADD SCAN DIFF NO
[2016-05-15 06:32] LABS: BASOPHILS % 0.6 % (0.0-2.0); EOSINOPHILS # 0.2 10^3/ul (0.0-0.5); EOSINOPHILS % 2.9 % (0.0-7.0); HEMATOCRIT 37.7 % (42.0-52.0); HEMOGLOBIN 12.7 g/dl (14.0-18.0); LYMPHOCYTES # 3.1 10^3/ul (0.8-2.9); LYMPHOCYTES % 46.6 % (15.0-51.0); MEAN CORPUSCULAR HEMOGLOBIN 30.8 pg (29.0-33.0); MEAN CORPUSCULAR HGB CONC 33.7 g/dl (32.0-37.0); MEAN CORPUSCULAR VOLUME 91.3 fl (82.0-101.0); MONOCYTE # 0.7 10^3/ul (0.3-0.9); MONOCYTES % 10.4 % (0.0-11.0); NEUTROPHIL # 2.5 10^3/ul (1.6-7.5); NEUTROPHILS % 37.8 % (39.0-77.0); PLATELET COUNT 325 10^3/UL (140-415); RED BLOOD COUNT 4.13 10^6/ul (4.70-6.10); RED CELL DISTRIBUTION WIDTH 13.3 % (11.5-14.5); WHITE BLOOD COUNT 6.6 10^3/ul (4.8-10.8)
[2016-05-15 07:15] LABS: POTASSIUM 3.8 mmol/L (3.5-5.1)
[2016-05-15 07:18] VITALS: BP 120/69; RESP 18
[2016-05-15 07:18] LABS: CREATININE 0.9 mg/dl (0.61-1.24)
[2016-05-15] MEDS: NICOTINE (21 MG/24 HR) PATCH TRANSDERM SCH (09:00)
[2016-05-15] MEDS: SODIUM HYPOCHLORITE 0.125% 473 ML BTL IRR SCH ×2 (09:00→16:00)
[2016-05-15] MEDS: CHLORDIAZEPOXIDE 25 MG CAP PO SCH ×3 (09:56→20:45)
[2016-05-15] MEDS: GABAPENTIN 300 MG CAP PO SCH ×2 (09:56→20:45)
[2016-05-15] MEDS: HEPARIN 5,000 UNIT/0.5 ML SYG SC SCH ×2 (09:57→20:48)
[2016-05-15] MEDS: VANCOMYCIN 1.5 GM in SOD CHLORIDE 0.9% 250 ML IVPB SCH ×2 (10:03→22:49)
--- NOTE | 2016-05-15 12:09 | PN ---
Date/Time of Note Date/Time of Note DATE: 05/15/16 TIME: 12:07 Assessment/Plan VTE Prophylaxis VTE Prophylaxis Intervention: SCD's Lines/Catheters IV Catheter Type (from Nrs): Peripheral IV Urinary Cath still in place: No Assessment/Plan Assessment/Plan 1. Right wrist/hand cellulitis with abscess s/p I &D wound cx pending, ID and General surgery on case 2. Systemic inflammatory response syndrome secondary to right hand cellulitis 3. Polysubstance abuse. advise to quit 4. Obesity. 5. History of psychiatric problems. anxiety disorder, ativan prn Plan: s/p I &D, wound cx preliminary negative d/c IV Fluids and ambulate pt BP stable will wait until wound cx result available to decide about Abx therapy on discharge appreciate general surgery help ID following Ativan prn- decrease dose to 1 mg IV Q 8 hr Subjective 24 Hr Interval Summary Free Text/Dictation wound cx preliminary negative, pt still c/o wrist pain, dressing and packign in place Exam/Review of Systems Vital Signs Vitals Vital Signs Date Time Temp Pulse Resp B/P Pulse Ox O2 Delivery O2 Flow Rate FiO2 05/15/16 07:18 97.6 86 18 120/69 96 05/12/16 08:30 Room Air Intake and Output 05/14/16 05/14/16 05/15/16 15:00 23:00 07:00 Intake Total 700 ml 2960 ml 2210 ml Balance 700 ml 2960 ml 2210 ml Results Result Diagram: 05/15/16 0530 05/15/16 0529 Results 24 hrs Laboratory Tests Test 05/15/16 05:29 05/15/16 05:30 Sodium Level 142 Potassium Level 3.8 Chloride Level 106 Carbon Dioxide Level 24 Anion Gap 16 Blood Urea Nitrogen 13 Creatinine 0.90 Glucose Level 130 Calcium Level 9.0 White Blood Count 6.6 Red Blood Count 4.13 L Hemoglobin 12.7 L Hematocrit 37.7 L Mean Corpuscular Volume 91.3 Mean Corpuscular Hemoglobin 30.8 Mean Corpuscular Hemoglobin Concent 33.7 Red Cell Distribution Width 13.3 Platelet Count 325 Mean Platelet Volume 10.0 Neutrophils % 37.8 L Lymphocytes % 46.6 Monocytes % 10.4 Eosinophils % 2.9 Basophils % 0.6 Nucleated Red Blood Cells % 0.0 Neutrophils # 2.5 Lymphocytes # 3.1 H Monocytes # 0.7 Eosinophils # 0.2 Basophils # 0.0 Nucleated Red Blood Cells # 0.0 Medications Medications Current Medications Ondansetron HCl (Zofran Inj) 4 mg Q6H PRN IV NAUSEA AND/OR VOMITING; Start at 20:30 Acetaminophen (Tylenol Tab) 650 mg Q6H PRN PO PAIN LEVEL 1-3 OR FEVER; Start at 20:30 Acetaminophen/ Hydrocodone Bitart ([place] (5/325)) 1 tab Q6H PRN PO MODERATE PAIN LEVEL 4-6 Last administered on 05/14/16 18:17; Admin Dose 1 TAB; Start at 20:30 Morphine Sulfate (morphine) 2 mg Q4H PRN IV SEVERE PAIN LEVEL 7-10 Last administered on 05/13/16 22:37; Admin Dose 2 MG; Start 05/07/16 at 20:30 Docusate Sodium (Colace) 100 mg Q12H PRN PO CONSTIPATION; Start 05/07/16 at 20: 30 Sodium Biphosphate/ Sodium Phosphate (Fleet Enema) 133 ml DAILY PRN [place] CONSTIPATION Last administered on 05/14/16 19:44; Admin Dose 133 ML; Start at 20:30 Pantoprazole (Protonix Tab) 40 mg DAILY@06 PO Last administered on 05/15/16 05 :42; Admin Dose 40 MG; Start 05/08/16 at 06:00 Heparin Sodium (Porcine) 5000 unit 5,000 unit Q12 SC Last administered on 09:57; Admin Dose 5,000 UNIT; Start 05/07/16 at 21:00 Sodium Chloride (NS) 1,000 ml @ 100 mls/hr Q10H IV Last administered on 05:42; Admin Dose 100 MLS/HR; Start 05/07/16 at 20:08 Vancomycin HCl (Vanco Iv Per Pharmacy) VANCOMYCIN PER PHARMACY NOTE XX ; Start 05/07/16 at 20:30 Hydralazine HCl (Apresoline) 10 mg Q6H PRN IV ELEVATED BLOOD PRESSURE; Start at 20:30 Clonidine (Catapres) 0.1 mg Q6H PRN PO ELEVATED BLOOD PRESSURE; Start 05/07/16 at 20:30 Nitroglycerin (Nitroglycerin (Sl Tab) 0.4 Mg) 1 tab Q5M PRN SL ANGINA; Start at 20:30 Gabapentin (Neurontin) 300 mg BID PO Last administered on 05/15/16 09:56; Admin Dose 300 MG; Start 05/07/16 at 21:00 Nortriptyline HCl (Aventyl) 75 mg HS PO Last administered on 05/14/16 21:15; Admin Dose 75 MG; Start 05/07/16 at 21:00 Olanzapine (Zyprexa) 10 mg QHS PO Last administered on 05/14/16 21:14; Admin Dose 10 MG; Start 05/07/16 at 21:00 Trazodone HCl 150 mg 150 mg QHS PO Last administered on 05/14/16 21:15; Admin Dose 150 MG; Start 05/07/16 at 21:00 Ceftriaxone Sodium 50 ml @ 100 mls/hr Q24H IVPB Last administered on 17:50; Admin Dose 100 MLS/HR; Start 05/08/16 at 18:00 Vancomycin HCl/ Sodium Chloride (Vancocin/NS) 250 ml @ 83.333 mls/ hr Q12H IVPB Last administered on 05/15/16 10:03; Admin Dose 83.333 MLS/HR; Start at 23:00 Nicotine (Nicoderm 21 Mg/ 24hr) 1 patch DAILY TRANSDERM ; Start 05/09/16 at 16: 00 Chlordiazepoxide (Librium) 25 mg TID PO Last administered on 05/15/16 09:56; Admin Dose 25 MG; Start 05/09/16 at 18:00 Lorazepam (Ativan) 2 mg Q8H PRN IV ANXIETY Last administered on 05/14/16 19:44 ; Admin Dose 2 MG; Start 05/12/16 at 17:00 Sodium Hypochlorite (Dakin'S (1/4 Strength)) 1 applic DAILY IRR Last administered on 05/14/16 00:06; Admin Dose 1 APPLIC; Start 05/13/16 at 23:30 RICK GARDNER MD May 15, 2016 12:09
[2016-05-15] MEDS: HYDROCODONE/APAP (5/325) TAB PO PRN ×2 (12:19→19:48)
[2016-05-15] MEDS: LORAZEPAM 1 MG TAB PO PRN ×2 (13:06→20:45)
--- NOTE | 2016-05-15 15:11 | PN ---
Date/Time of Note Date/Time of Note DATE: 05/15/16 TIME: 15:10 Assessment/Plan Lines/Catheters IV Catheter Type (from [facility]): Peripheral IV [place] in Place (from [facility]): No Assessment/Plan Chief Complaint/Hosp Course 1. Right posterior hand and arm cellulitis and abscess 2nd skin popping of Meth s/p I&D 05/13 -check culture (staph - pending sens) -antibiotics -warm compress -nutrition optimization -vit c 2. BMI 29. The patient is highly encouraged to optimize diet and exercise to improve his overall health status. 3. Drug abuse history. The patient is highly encouraged to seek rehab to improve his overall health. 4. Positive UA with possible UTI on admission, status post antibiotics. 5. Anemia without evidence of acute blood loss, continue monitoring. 6. History of psychiatric disorders with anxiety, ADHD and suicide attempt. Continue medical and psychiatric optimization. Thank you Problems: Subjective 24 Hr Interval Summary s/p I&D 05/13. No f/c/n/v. No cp/sob. No cough. No carter/dizzy/visual or neuro changes. No dysuria. No abdominal pain. Right arm pain improved. Exam/Review of Systems Vital Signs Vitals Vital Signs Date Time Temp Pulse Resp B/P Pulse Ox O2 Delivery O2 Flow Rate FiO2 05/15/16 07:18 97.6 86 18 120/69 96 05/12/16 08:30 Room Air Intake and Output 05/14/16 05/14/16 05/15/16 15:00 23:00 07:00 Intake Total 700 ml 2960 ml 2210 ml Balance 700 ml 2960 ml 2210 ml Exam Free Text/Dictation GENERAL: Obese, medicated, in no acute distress. HEENT: Pupils are sluggish and reactive. No scleral icterus. Mucous membranes are moist. NECK: Supple, no crepitus. Trachea midline, no JVD. PULMONARY: Normal respiratory effort. HEART: S1, S2 present and tachycardic. ABDOMEN: Soft, obese. EXTREMITIES: No edema. Right posterior arm and proximal wrist wound. Minimally tender VASCULAR: Capillary refill is 2 seconds. NEUROLOGIC: Arousable and moves all 4 extremities grossly. PSYCH: Medicated and lethargic but arousable. Results Result Diagram: 05/15/16 0530 05/15/16 0529 LAZARO QUIROS MD May 15, 2016 15:11
[2016-05-15] MEDS ORDERED: LORAZEPAM 2 MG INJ IV PRN (17:00)
--- NOTE | 2016-05-15 17:02 | CONS ---
Date/Time of Note Date/Time of Note DATE: 05/15/16 TIME: 17:02 Assessment/Plan Assessment/Plan Chief Complaint/Hosp Course ID PROGRESS NOTE * DUPLICATE NOTE OPENED IN ERROR * == Pt seen and examined 05/15/16. Please refer to alternative ID note of same date. Unable to delete this note. * * * . Problems: Consultation Date/Type/Reason Admit Date/Time May 07, 2016 at 17:59 Initial Consult Date Type of Consultation: ID Referring Provider: JONNATHAN CHRISTIANSON Exam/Review of Systems Vital Signs Vitals Vital Signs Date Time Temp Pulse Resp B/P Pulse Ox O2 Delivery O2 Flow Rate FiO2 05/15/16 07:18 97.6 86 18 120/69 96 05/12/16 08:30 Room Air Intake and Output 05/14/16 05/14/16 05/15/16 15:00 23:00 07:00 Intake Total 700 ml 2960 ml 2210 ml Balance 700 ml 2960 ml 2210 ml Results Result Diagram: 05/15/16 0530 05/15/16 0529 Results 24 hrs Laboratory Tests Test 05/15/16 05:29 05/15/16 05:30 Sodium Level 142 Potassium Level 3.8 Chloride Level 106 Carbon Dioxide Level 24 Anion Gap 16 Blood Urea Nitrogen 13 Creatinine 0.90 Glucose Level 130 Calcium Level 9.0 White Blood Count 6.6 Red Blood Count 4.13 L Hemoglobin 12.7 L Hematocrit 37.7 L Mean Corpuscular Volume 91.3 Mean Corpuscular Hemoglobin 30.8 Mean Corpuscular Hemoglobin Concent 33.7 Red Cell Distribution Width 13.3 Platelet Count 325 Mean Platelet Volume 10.0 Neutrophils % 37.8 L Lymphocytes % 46.6 Monocytes % 10.4 Eosinophils % 2.9 Basophils % 0.6 Nucleated Red Blood Cells % 0.0 Neutrophils # 2.5 Lymphocytes # 3.1 H Monocytes # 0.7 Eosinophils # 0.2 Basophils # 0.0 Nucleated Red Blood Cells # 0.0 Medications Medications Current Medications Ondansetron HCl (Zofran Inj) 4 mg Q6H PRN IV NAUSEA AND/OR VOMITING; Start at 20:30 Acetaminophen (Tylenol Tab) 650 mg Q6H PRN PO PAIN LEVEL 1-3 OR FEVER; Start at 20:30 Acetaminophen/ Hydrocodone Bitart ([place] (5/325)) 1 tab Q6H PRN PO MODERATE PAIN LEVEL 4-6 Last administered on 05/15/16 12:19; Admin Dose 1 TAB; Start at 20:30 Morphine Sulfate (morphine) 2 mg Q4H PRN IV SEVERE PAIN LEVEL 7-10 Last administered on 05/13/16 22:37; Admin Dose 2 MG; Start 05/07/16 at 20:30 Docusate Sodium (Colace) 100 mg Q12H PRN PO CONSTIPATION; Start 05/07/16 at 20: 30 Sodium Biphosphate/ Sodium Phosphate (Fleet Enema) 133 ml DAILY PRN [place] CONSTIPATION Last administered on 05/14/16 19:44; Admin Dose 133 ML; Start at 20:30 Pantoprazole (Protonix Tab) 40 mg DAILY@06 PO Last administered on 05/15/16 05 :42; Admin Dose 40 MG; Start 05/08/16 at 06:00 Heparin Sodium (Porcine) (Heparin (5000 Units/0.5 ml)) 5,000 unit Q12 SC Last administered on 05/15/16 09:57; Admin Dose 5,000 UNIT; Start 05/07/16 at 21:00 Vancomycin HCl (Vanco Iv Per Pharmacy) VANCOMYCIN PER PHARMACY NOTE XX ; Start 05/07/16 at 20:30 Hydralazine HCl (Apresoline) 10 mg Q6H PRN IV ELEVATED BLOOD PRESSURE; Start at 20:30 Clonidine (Catapres) 0.1 mg Q6H PRN PO ELEVATED BLOOD PRESSURE; Start 05/07/16 at 20:30 Nitroglycerin (Nitroglycerin (Sl Tab) 0.4 Mg) 1 tab Q5M PRN SL ANGINA; Start at 20:30 Gabapentin (Neurontin) 300 mg BID PO Last administered on 05/15/16 09:56; Admin Dose 300 MG; Start 05/07/16 at 21:00 Nortriptyline HCl (Aventyl) 75 mg HS PO Last administered on 05/14/16 21:15; Admin Dose 75 MG; Start 05/07/16 at 21:00 Olanzapine (Zyprexa) 10 mg QHS PO Last administered on 05/14/16 21:14; Admin Dose 10 MG; Start 05/07/16 at 21:00 Trazodone HCl 150 mg 150 mg QHS PO Last administered on 05/14/16 21:15; Admin Dose 150 MG; Start 05/07/16 at 21:00 Ceftriaxone Sodium 50 ml @ 100 mls/hr Q24H IVPB Last administered on 17:50; Admin Dose 100 MLS/HR; Start 05/08/16 at 18:00 Vancomycin HCl/ Sodium Chloride (Vancocin/NS) 250 ml @ 83.333 mls/ hr Q12H IVPB Last administered on 05/15/16 10:03; Admin Dose 83.333 MLS/HR; Start at 23:00 Nicotine (Nicoderm 21 Mg/ 24hr) 1 patch DAILY TRANSDERM ; Start 05/09/16 at 16: 00 Chlordiazepoxide (Librium) 25 mg TID PO Last administered on 05/15/16 09:56; Admin Dose 25 MG; Start 05/09/16 at 18:00 Sodium Hypochlorite (Dakin'S (1/4 Strength)) 1 applic DAILY IRR Last administered on 05/14/16 00:06; Admin Dose 1 APPLIC; Start 05/13/16 at 23:30 Lorazepam (Ativan) 1 mg Q8H PRN PO anxiety,agitation Last administered on 05/15 13:06; Admin Dose 1 MG; Start 05/15/16 at 12:30 FLORIDA ROBERTS NP May 15, 2016 17:02 Ceftriaxone Sodium 50 ml @ 100 mls/hr Q24H IVPB Last administered on 17:50; Admin Dose 100 MLS/HR; Start 05/08/16 at 18:00 Vancomycin HCl/ Sodium Chloride (Vancocin/NS) 250 ml @ 83.333 mls/ hr Q12H IVPB Last administered on 05/15/16 10:03; Admin Dose 83.333 MLS/HR; Start at 23:00 Nicotine (Nicoderm 21 Mg/ 24hr) 1 patch DAILY TRANSDERM ; Start 05/09/16 at 16: 00 Chlordiazepoxide (Librium) 25 mg TID PO Last administered on 05/15/16 09:56; Admin Dose 25 MG; Start 05/09/16 at 18:00 Sodium Hypochlorite (Dakin'S (1/4 Strength)) 1 applic DAILY IRR Last administered on 05/14/16 00:06; Admin Dose 1 APPLIC; Start 05/13/16 at 23:30 Lorazepam (Ativan) 1 mg Q8H PRN PO anxiety,agitation Last administered on 05/15 13:06; Admin Dose 1 MG; Start 05/15/16 at 12:30 FLORIDA ROBERTS NP May 15, 2016 17:02
[2016-05-15] MEDS: CEFTRIAXONE 1 GM/50 ML (PMX) 50 ML IVPB SCH (17:59)
[2016-05-15] MEDS: NORTRIPTYLINE 25 MG CAP PO SCH (20:44)
[2016-05-15] MEDS: traZODone 50 MG TAB PO SCH (20:44)
[2016-05-15] MEDS: OLANZAPINE 5 MG TAB PO SCH (20:44)
[2016-05-15] MEDS: NA PHOSPHATE/BIPHOS 133 ML ENEMA PR PRN (20:44)
--- NOTE | 2016-05-15 20:47 | CONS ---
Date/Time of Note Date/Time of Note DATE: 05/15/16 TIME: 20:42 Assessment/Plan Assessment/Plan Chief Complaint/Hosp Course ID PROGRESS NOTE CURRENT ABX=> Vanco IV + Ceftriaxone 24H INTERVAL SUMMARY * RUEXT cellulitis + hand abscess 2/2 skin popping illicit drugs * 05/13/16 wound cx: (+)Staph species final pending * Patient is sleeping, no fevers, WBC normal, VSS, NAD PHYSICAL EXAMINATION: GENERAL:VSS, NAD HEENT: Unremarkable NECK: Supple, trachea midline. CHEST: Rise symmetrical, without dyspnea on observation HEART: Pulse RRR ABDOMEN: soft EXTREMITIES: Warm ID ASSESSMENT 55 yo M w/PMHx + Polysubstance abuse admit with: 1. Right hand cellulitis/abscess 2/2 skin popping illicit drugs > s/p i&d * 05/13/16 wound cx: (+)Staph species final pending 2. Systemic inflammatory response syndrome secondary to right hand cellulitis. * Blood Cx (-) 3. Psych Dx NOS + ADHD + Anxiety + remote hx of suicide, denies current SI MRSA Nares INVASIVES: PIV ABX ALLERGY: KNDA CURRENT ABX: => Vanco IV + Ceftriaxone ID RECOMMENDATIONS 1. Continue current ABX 2. Await final micro => Anticipate DC home on Bactrim DS 1 Tab PO BID x 10 days . Problems: Consultation Date/Type/Reason Admit Date/Time May 07, 2016 at 17:59 Type of Consultation: ID Referring Provider: JONNATHAN CHRISTIANSON Exam/Review of Systems Vital Signs Vitals Vital Signs Date Time Temp Pulse Resp B/P Pulse Ox O2 Delivery O2 Flow Rate FiO2 05/15/16 07:18 97.6 86 18 120/69 96 05/12/16 08:30 Room Air Intake and Output 05/14/16 05/14/16 05/15/16 15:00 23:00 07:00 Intake Total 700 ml 2960 ml 2210 ml Balance 700 ml 2960 ml 2210 ml Results Result Diagram: 05/15/16 0530 05/15/16 0529 Results 24 hrs Laboratory Tests Test 05/15/16 05:29 05/15/16 05:30 Sodium Level 142 Potassium Level 3.8 Chloride Level 106 Carbon Dioxide Level 24 Anion Gap 16 Blood Urea Nitrogen 13 Creatinine 0.90 Glucose Level 130 Calcium Level 9.0 White Blood Count 6.6 Red Blood Count 4.13 L Hemoglobin 12.7 L Hematocrit 37.7 L Mean Corpuscular Volume 91.3 Mean Corpuscular Hemoglobin 30.8 Mean Corpuscular Hemoglobin Concent 33.7 Red Cell Distribution Width 13.3 Platelet Count 325 Mean Platelet Volume 10.0 Neutrophils % 37.8 L Lymphocytes % 46.6 Monocytes % 10.4 Eosinophils % 2.9 Basophils % 0.6 Nucleated Red Blood Cells % 0.0 Neutrophils # 2.5 Lymphocytes # 3.1 H Monocytes # 0.7 Eosinophils # 0.2 Basophils # 0.0 Nucleated Red Blood Cells # 0.0 Medications Medications Current Medications Ondansetron HCl (Zofran Inj) 4 mg Q6H PRN IV NAUSEA AND/OR VOMITING; Start at 20:30 Acetaminophen (Tylenol Tab) 650 mg Q6H PRN PO PAIN LEVEL 1-3 OR FEVER; Start at 20:30 Acetaminophen/ Hydrocodone Bitart ([place] (5/325)) 1 tab Q6H PRN PO MODERATE PAIN LEVEL 4-6 Last administered on 05/15/16 19:48; Admin Dose 1 TAB; Start at 20:30 Morphine Sulfate (morphine) 2 mg Q4H PRN IV SEVERE PAIN LEVEL 7-10 Last administered on 05/13/16 22:37; Admin Dose 2 MG; Start 05/07/16 at 20:30 Docusate Sodium (Colace) 100 mg Q12H PRN PO CONSTIPATION; Start 05/07/16 at 20: 30 Sodium Biphosphate/ Sodium Phosphate (Fleet Enema) 133 ml DAILY PRN [place] CONSTIPATION Last administered on 05/14/16 19:44; Admin Dose 133 ML; Start at 20:30 Pantoprazole (Protonix Tab) 40 mg DAILY@06 PO Last administered on 05/15/16 05 :42; Admin Dose 40 MG; Start 05/08/16 at 06:00 Heparin Sodium (Porcine) (Heparin (5000 Units/0.5 ml)) 5,000 unit Q12 SC Last administered on 05/15/16 09:57; Admin Dose 5,000 UNIT; Start 05/07/16 at 21:00 Vancomycin HCl (Vanco Iv Per Pharmacy) VANCOMYCIN PER PHARMACY NOTE XX ; Start 05/07/16 at 20:30 Hydralazine HCl (Apresoline) 10 mg Q6H PRN IV ELEVATED BLOOD PRESSURE; Start at 20:30 Clonidine (Catapres) 0.1 mg Q6H PRN PO ELEVATED BLOOD PRESSURE; Start 05/07/16 at 20:30 Nitroglycerin (Nitroglycerin (Sl Tab) 0.4 Mg) 1 tab Q5M PRN SL ANGINA; Start at 20:30 Gabapentin (Neurontin) 300 mg BID PO Last administered on 05/15/16 09:56; Admin Dose 300 MG; Start 05/07/16 at 21:00 Nortriptyline HCl (Aventyl) 75 mg HS PO Last administered on 05/14/16 21:15; Admin Dose 75 MG; Start 05/07/16 at 21:00 Olanzapine (Zyprexa) 10 mg QHS PO Last administered on 05/14/16 21:14; Admin Dose 10 MG; Start 05/07/16 at 21:00 Trazodone HCl 150 mg 150 mg QHS PO Last administered on 05/14/16 21:15; Admin Dose 150 MG; Start 05/07/16 at 21:00 Ceftriaxone Sodium 50 ml @ 100 mls/hr Q24H IVPB Last administered on 17:59; Admin Dose 100 MLS/HR; Start 05/08/16 at 18:00 Vancomycin HCl/ Sodium Chloride (Vancocin/NS) 250 ml @ 83.333 mls/ hr Q12H IVPB Last administered on 05/15/16 10:03; Admin Dose 83.333 MLS/HR; Start at 23:00 Nicotine (Nicoderm 21 Mg/ 24hr) 1 patch DAILY TRANSDERM ; Start 05/09/16 at 16: 00 Chlordiazepoxide (Librium) 25 mg TID PO Last administered on 05/15/16 09:56; Admin Dose 25 MG; Start 05/09/16 at 18:00 Sodium Hypochlorite (Dakin'S (1/4 Strength)) 1 applic DAILY IRR Last administered on 05/15/16 16:00; Admin Dose 1 APPLIC; Start 05/13/16 at 23:30 Lorazepam (Ativan) 1 mg Q8H PRN PO anxiety,agitation Last administered on 05/15t 13:06; Admin Dose 1 MG; Start 05/15/16 at 12:30 FLORIDA ROBERTS NP May 15, 2016 20:47
[2016-05-15 21:00] VITALS: BP 136/88; RESP 18
[2016-05-16] MEDS: PANTOPRAZOLE (EC) 40 MG TAB PO SCH (05:43)
[2016-05-16 08:24] VITALS: BP 154/98; RESP 22
[2016-05-16] MEDS: CHLORDIAZEPOXIDE 25 MG CAP PO SCH ×3 (08:38→21:00)
[2016-05-16] MEDS: GABAPENTIN 300 MG CAP PO SCH (08:38)
[2016-05-16] MEDS: SODIUM HYPOCHLORITE 0.125% 473 ML BTL IRR SCH (08:38)
[2016-05-16] MEDS: NICOTINE (21 MG/24 HR) PATCH TRANSDERM SCH (08:39)
[2016-05-16] MEDS: HEPARIN 5,000 UNIT/0.5 ML SYG SC SCH ×2 (08:39→21:00)
[2016-05-16] MEDS: LORAZEPAM 1 MG TAB PO PRN ×2 (10:53→22:32)
[2016-05-16] MEDS: VANCOMYCIN 1.5 GM in SOD CHLORIDE 0.9% 250 ML IVPB SCH (10:54)
[2016-05-16 11:00] VITALS: PULSE 106
--- NOTE | 2016-05-16 11:06 | PN ---
Date/Time of Note Date/Time of Note DATE: 05/16/16 TIME: 11:03 Assessment/Plan VTE Prophylaxis VTE Prophylaxis Intervention: SCD's Lines/Catheters IV Catheter Type (from Nrsg): [place] Urinary Cath still in place: No Assessment/Plan Assessment/Plan 1. Right wrist/hand cellulitis with abscess s/p I &D wound cx pending, ID and General surgery on case 2. Systemic inflammatory response syndrome secondary to right hand cellulitis 3. Polysubstance abuse. advise to quit 4. Obesity. 5. History of psychiatric problems. anxiety disorder, ativan prn Plan: s/p I &D, wound cx preliminary negative IVF discontinued, change ativan to PO BP stable will wait until wound cx result available to decide about Abx therapy on discharge appreciate general surgery help ID following Subjective 24 Hr Interval Summary Free Text/Dictation c/o right wrist pain, no fever, no chills, wound cx preliminary negative, on ativan po Exam/Review of Systems Vital Signs Vitals Vital Signs Date Time Temp Pulse Resp B/P Pulse Ox O2 Delivery O2 Flow Rate FiO2 05/16/16 08:24 98.3 120 22 154/98 94 05/12/16 08:30 Room Air Intake and Output 05/15/16 05/15/16 05/16/16 15:00 23:00 07:00 Intake Total 650 ml 770 ml 1030 ml Balance 650 ml 770 ml 1030 ml Exam GENERAL: Well-developed, middle-aged white man who is alert, in no distress. HEENT: Head atraumatic, normocephalic. Sclerae anicteric. Buccal mucosa pink. NECK: Supple. CHEST: Rise symmetrical. Breath sounds clear. HEART: S1, S2. ABDOMEN: Soft. Bowel tones present. EXTREMITIES: With right hand improved erythema and edema., dressing present on right wrist Results Result Diagram: 05/15/1652905/15/16 05 Medications Medications Current Medications Ondansetron HCl (Zofran Inj) 4 mg Q6H PRN IV NAUSEA AND/OR VOMITING; Start at 20:30 Acetaminophen (Tylenol Tab) 650 mg Q6H PRN PO PAIN LEVEL 1-3 OR FEVER; Start at 20:30 Acetaminophen/ Hydrocodone Bitart ([place] (5/325)) 1 tab Q6H PRN PO MODERATE PAIN LEVEL 4-6 Last administered on 05/15/16 19:48; Admin Dose 1 TAB; Start at 20:30 Morphine Sulfate (morphine) 2 mg Q4H PRN IV SEVERE PAIN LEVEL 7-10 Last administered on 05/13/16 22:37; Admin Dose 2 MG; Start 05/07/16 at 20:30 Docusate Sodium (Colace) 100 mg Q12H PRN PO CONSTIPATION; Start 05/07/16 at 20: 30 Sodium Biphosphate/ Sodium Phosphate (Fleet Enema) 133 ml DAILY PRN [place] CONSTIPATION Last administered on 05/15/16 20:44; Admin Dose 133 ML; Start at 20:30 Pantoprazole (Protonix Tab) 40 mg DAILY@06 PO Last administered on 05/16/16 05 :43; Admin Dose 40 MG; Start 05/08/16 at 06:00 Heparin Sodium (Porcine) (Heparin (5000 Units/0.5 ml)) 5,000 unit Q12 SC Last administered on 05/15/16 20:48; Admin Dose 5,000 UNIT; Start 05/07/16 at 21:00 Vancomycin HCl (Vanco Iv Per Pharmacy) VANCOMYCIN PER PHARMACY NOTE XX ; Start 05/07/16 at 20:30 Hydralazine HCl (Apresoline) 10 mg Q6H PRN IV ELEVATED BLOOD PRESSURE; Start at 20:30 Clonidine (Catapres) 0.1 mg Q6H PRN PO ELEVATED BLOOD PRESSURE; Start 05/07/16 at 20:30 Nitroglycerin (Nitroglycerin (Sl Tab) 0.4 Mg) 1 tab Q5M PRN SL ANGINA; Start at 20:30 Gabapentin (Neurontin) 300 mg BID PO Last administered on 05/16/16 08:38; Admin Dose 300 MG; Start 05/07/16 at 21:00 Nortriptyline HCl (Aventyl) 75 mg HS PO Last administered on 05/15/16 20:44; Admin Dose 75 MG; Start 05/07/16 at 21:00 Olanzapine (Zyprexa) 10 mg QHS PO Last administered on 05/15/16 20:44; Admin Dose 10 MG; Start 05/07/16 at 21:00 Trazodone HCl 150 mg 150 mg QHS PO Last administered on 05/15/16 20:44; Admin Dose 150 MG; Start 05/07/16 at 21:00 Ceftriaxone Sodium 50 ml @ 100 mls/hr Q24H IVPB Last administered on 17:59; Admin Dose 100 MLS/HR; Start 05/08/16 at 18:00 Vancomycin HCl/ Sodium Chloride (Vancocin/NS) 250 ml @ 83.333 mls/ hr Q12H IVPB Last administered on 05/16/16 10:54; Admin Dose 83.333 MLS/HR; Start at 23:00 Nicotine (Nicoderm 21 Mg/ 24hr) 1 patch DAILY TRANSDERM ; Start 05/09/16 at 16: 00 Chlordiazepoxide (Librium) 25 mg TID PO Last administered on 05/16/16 08:38; Admin Dose 25 MG; Start 05/09/16 at 18:00 Sodium Hypochlorite (Dakin'S (1/4 Strength)) 1 applic DAILY IRR Last administered on 05/16/16 08:38; Admin Dose 1 APPLIC; Start 05/13/16 at 23:30 Lorazepam (Ativan) 1 mg Q8H PRN PO anxiety,agitation Last administered on 05/16 10:53; Admin Dose 1 MG; Start 05/15/16 at 12:30 RICK GARDNER MD May 16, 2016 11:06
--- NOTE | 2016-05-16 15:07 | CONS ---
Date/Time of Note Date/Time of Note DATE: 05/16/16 TIME: 15:01 Assessment/Plan Assessment/Plan Chief Complaint/Hosp Course ID PROGRESS NOTE CURRENT ABX=> Vanco IV + Ceftriaxone 24H INTERVAL SUMMARY * A/A/O ==> tells me "infection is gone" -- still has open wound from I&D with wound packing -- tells me he is surprised the surgeon "just stuck his sharp thing right in and drained it" * RUEXT cellulitis + hand abscess 2/2 skin popping illicit drugs * 05/13/16 wound cx: (+)Staph Coag Negative == opportunistic * No fevers, WBC normal, VSS, NAD Sarah: 05/13/16-2044 Rcvd: 05/13/16 Source: HAND Sp Descrip: RIGHT Procedure Result Microbiology GRAM STAIN Final POLYMORPH. LEUKOCYTE NONE SEEN . NO ORGANISM SEEN WOUND CULTURE Final Organism 1 COAGULASE NEGATIVE STAPH QUANTITY RARE COAG NEG M.I.C. RX --------- --- CEFAZOLIN R CIPROFLOXACIN 4 R CLINDAMYCIN >=8 R DOXYCYCLINE I ERYTHROMYCIN >=8 R LEVOFLOXACIN 4 R OXACILLIN >=4 R PENICILLIN-G >=0.5 R RIFAMPIN <=0.5 S VANCOMYCIN 2 S TRIMETHOPRIM/SULFAMETHOXAZOLE 160 R PHYSICAL EXAMINATION: GENERAL:VSS, NAD HEENT: Unremarkable NECK: Supple, trachea midline. CHEST: Rise symmetrical, without dyspnea on observation HEART: Pulse RRR ABDOMEN: soft EXTREMITIES: Warm ID ASSESSMENT 55 yo M w/PMHx + Polysubstance abuse admit with: 1. Right hand cellulitis/abscess 2/2 skin popping illicit drugs > s/p i&d * 05/13/16 wound cx: (+)Opportunistic Staph-CoNS -- Developing resistance to Doxy ! * COAG NEG M.I.C. RX --------- --- CEFAZOLIN R CIPROFLOXACIN 4 R CLINDAMYCIN >=8 R DOXYCYCLINE I ERYTHROMYCIN >=8 R LEVOFLOXACIN 4 R OXACILLIN >=4 R PENICILLIN-G >=0.5 R RIFAMPIN <=0.5 S VANCOMYCIN 2 S TRIMETHOPRIM/SULFAMETHOXAZOLE 160 R 2. Systemic inflammatory response syndrome secondary to right hand cellulitis. * Blood Cx (-) 3. Psych Dx NOS + ADHD + Anxiety + remote hx of suicide, denies current SI MRSA Nares INVASIVES: PIV ABX ALLERGY: KNDA CURRENT ABX: => Vanco IV + Ceftriaxone ID RECOMMENDATIONS 1. Wound is drained and healing 2. DC IV ABX -- Change to PO ABX and DC home on Bactrim DS 1 Tab PO BID x 10 days . Problems: Consultation Date/Type/Reason Admit Date/Time May 07, 2016 at 17:59 Type of Consultation: ID Referring Provider: JONNATHAN CHRISTIANSON Exam/Review of Systems Vital Signs Vitals Vital Signs Date Time Temp Pulse Resp B/P Pulse Ox O2 Delivery O2 Flow Rate FiO2 05/16/16 08:24 98.3 120 22 154/98 94 05/12/16 08:30 Room Air Intake and Output 05/15/16 05/15/16 05/16/16 14:59 22:59 06:59 Intake Total 650 ml 770 ml 1030 ml Balance 650 ml 770 ml 1030 ml Results Result Diagram: 05/15/1652905/15/16 05 Medications Medications Current Medications Ondansetron HCl (Zofran Inj) 4 mg Q6H PRN IV NAUSEA AND/OR VOMITING; Start at 20:30 Acetaminophen (Tylenol Tab) 650 mg Q6H PRN PO PAIN LEVEL 1-3 OR FEVER; Start at 20:30 Acetaminophen/ Hydrocodone Bitart ([place] (5/325)) 1 tab Q6H PRN PO MODERATE PAIN LEVEL 4-6 Last administered on 05/15/16 19:48; Admin Dose 1 TAB; Start at 20:30 Morphine Sulfate (morphine) 2 mg Q4H PRN IV SEVERE PAIN LEVEL 7-10 Last administered on 05/13/16 22:37; Admin Dose 2 MG; Start 05/07/16 at 20:30 Docusate Sodium (Colace) 100 mg Q12H PRN PO CONSTIPATION; Start 05/07/16 at 20: 30 Sodium Biphosphate/ Sodium Phosphate (Fleet Enema) 133 ml DAILY PRN [place] CONSTIPATION Last administered on 05/15/16 20:44; Admin Dose 133 ML; Start at 20:30 Pantoprazole (Protonix Tab) 40 mg DAILY@06 PO Last administered on 05/16/16 05 :43; Admin Dose 40 MG; Start 05/08/16 at 06:00 Heparin Sodium (Porcine) (Heparin (5000 Units/0.5 ml)) 5,000 unit Q12 SC Last administered on 05/15/16 20:48; Admin Dose 5,000 UNIT; Start 05/07/16 at 21:00 Vancomycin HCl (Vanco Iv Per Pharmacy) VANCOMYCIN PER PHARMACY NOTE XX ; Start 05/07/16 at 20:30 Hydralazine HCl (Apresoline) 10 mg Q6H PRN IV ELEVATED BLOOD PRESSURE; Start at 20:30 Clonidine (Catapres) 0.1 mg Q6H PRN PO ELEVATED BLOOD PRESSURE; Start 05/07/16 at 20:30 Nitroglycerin (Nitroglycerin (Sl Tab) 0.4 Mg) 1 tab Q5M PRN SL ANGINA; Start at 20:30 Gabapentin (Neurontin) 300 mg BID PO Last administered on 05/16/16 08:38; Admin Dose 300 MG; Start 05/07/16 at 21:00 Nortriptyline HCl (Aventyl) 75 mg HS PO Last administered on 05/15/16 20:44; Admin Dose 75 MG; Start 05/07/16 at 21:00 Olanzapine (Zyprexa) 10 mg QHS PO Last administered on 05/15/16 20:44; Admin Dose 10 MG; Start 05/07/16 at 21:00 Trazodone HCl 150 mg 150 mg QHS PO Last administered on 05/15/16 20:44; Admin Dose 150 MG; Start 05/07/16 at 21:00 Ceftriaxone Sodium 50 ml @ 100 mls/hr Q24H IVPB Last administered on 17:59; Admin Dose 100 MLS/HR; Start 05/08/16 at 18:00 Vancomycin HCl/ Sodium Chloride (Vancocin/NS) 250 ml @ 83.333 mls/ hr Q12H IVPB Last administered on 05/16/16 10:54; Admin Dose 83.333 MLS/HR; Start at 23:00 Nicotine (Nicoderm 21 Mg/ 24hr) 1 patch DAILY TRANSDERM ; Start 05/09/16 at 16: 00 Chlordiazepoxide (Librium) 25 mg TID PO Last administered on 05/16/16 12:19; Admin Dose 25 MG; Start 05/09/16 at 18:00 Sodium Hypochlorite (Dakin'S (1/4 Strength)) 1 applic DAILY IRR Last administered on 05/16/16 08:38; Admin Dose 1 APPLIC; Start 05/13/16 at 23:30 Lorazepam (Ativan) 1 mg Q8H PRN PO anxiety,agitation Last administered on 05/16 10:53; Admin Dose 1 MG; Start 05/15/16 at 12:30 Miscellaneous Information (*Rx Drug Level Order Reminder*) VANCOMYCIN TROUGH AT 2200 ONCE ONCE XX ; Start 05/16/16 at 22:00; Stop 05/16/16 at 22:01 FLORIDA ROBERTS NP May 16, 2016 15:07
--- NOTE | 2016-05-16 18:54 | PN ---
Date/Time of Note Date/Time of Note DATE: 05/16/16 TIME: 18:53 Assessment/Plan Lines/Catheters IV Catheter Type (from [facility]): Saline Lock [facility] in Place (from [facility]): No Assessment/Plan Chief Complaint/Hosp Course 1. Right posterior hand and arm cellulitis and abscess 2nd skin popping of Meth s/p I&D 05/13 -check culture (staph - pending sens) -antibiotics -warm compress -nutrition optimization -vit c 2. BMI 29. The patient is highly encouraged to optimize diet and exercise to improve his overall health status. 3. Drug abuse history. The patient is highly encouraged to seek rehab to improve his overall health. 4. Positive UA with possible UTI on admission, status post antibiotics. 5. Anemia without evidence of acute blood loss, continue monitoring. 6. History of psychiatric disorders with anxiety, ADHD and suicide attempt. Continue medical and psychiatric optimization. Thank you Problems: Subjective 24 Hr Interval Summary s/p I&D 05/13. No f/c/n/v. No cp/sob. No cough. No carter/dizzy/visual or neuro changes. No dysuria. No abdominal pain. Right arm pain improved. Exam/Review of Systems Vital Signs Vitals Vital Signs Date Time Temp Pulse Resp B/P Pulse Ox O2 Delivery O2 Flow Rate FiO2 05/16/16 11:00 106 05/16/16 08:24 98.3 22 154/98 94 05/12/16 08:30 Room Air Intake and Output 05/15/16 05/15/16 05/16/16 15:00 23:00 07:00 Intake Total 650 ml 770 ml 1030 ml Balance 650 ml 770 ml 1030 ml Exam Free Text/Dictation GENERAL: Obese, medicated, in no acute distress. HEENT: Pupils are sluggish and reactive. No scleral icterus. Mucous membranes are moist. NECK: Supple, no crepitus. Trachea midline, no JVD. PULMONARY: Normal respiratory effort. HEART: S1, S2 present and tachycardic. ABDOMEN: Soft, obese. EXTREMITIES: No edema. Right posterior arm and proximal wrist wound. Minimally tender VASCULAR: Capillary refill is 2 seconds. NEUROLOGIC: Arousable and moves all 4 extremities grossly. PSYCH: Responsive but keeps talking about low hope for his life in the next 10- 15years Results Result Diagram: 05/15/16 0530 05/15/16 0529 LAZARO QUIROS MD May 16, 2016 18:54
[2016-05-16] MEDS: NORTRIPTYLINE 25 MG CAP PO SCH (21:00)
[2016-05-16] MEDS ORDERED: TEMAZEPAM 15 MG CAP PO PRN (22:00)
[2016-05-16] MEDS ORDERED: SPECIAL NON-STANDARD MEDICATION PO PRN (22:00)
[2016-05-16 22:32] VITALS: BP 155/108; RESP 20
[2016-05-17] MEDS: TRIMETHOPRIM/SULFAMETHOX (DS) TAB PO SCH ×2 (00:14→09:25)
[2016-05-17] MEDS: GABAPENTIN 300 MG CAP PO SCH ×2 (00:35→09:25)
[2016-05-17] MEDS: OLANZAPINE 5 MG TAB PO SCH (00:36)
[2016-05-17] MEDS: traZODone 50 MG TAB PO SCH (00:36)
[2016-05-17] MEDS: PANTOPRAZOLE (EC) 40 MG TAB PO SCH (05:42)
[2016-05-17 05:56] LABS: ADD SCAN DIFF NO
[2016-05-17 06:16] LABS: POTASSIUM 3.6 mmol/L (3.5-5.1)
[2016-05-17 06:18] LABS: BASOPHILS % 0.4 % (0.0-2.0); EOSINOPHILS # 0.1 10^3/ul (0.0-0.5); HEMOGLOBIN 14.6 g/dl (14.0-18.0); LYMPHOCYTES # 2.9 10^3/ul (0.8-2.9); LYMPHOCYTES % 28.4 % (15.0-51.0); MEAN CORPUSCULAR HEMOGLOBIN 30.7 pg (29.0-33.0); MEAN CORPUSCULAR VOLUME 90.5 fl (82.0-101.0); MEAN PLATELET VOLUME 9.8 fl (7.4-10.4); MONOCYTE # 0.9 10^3/ul (0.3-0.9); MONOCYTES % 8.7 % (0.0-11.0); NEUTROPHIL # 6.2 10^3/ul (1.6-7.5); NEUTROPHILS % 59.9 % (39.0-77.0); PLATELET COUNT 367 10^3/UL (140-415); RED BLOOD COUNT 4.75 10^6/ul (4.70-6.10); RED CELL DISTRIBUTION WIDTH 13.7 % (11.5-14.5); WHITE BLOOD COUNT 10.3 10^3/ul (4.8-10.8)
[2016-05-17 06:19] LABS: CREATININE 1.04 mg/dl (0.61-1.24)
[2016-05-17 06:20] LABS: CALCIUM 9.6 mg/dl (8.4-10.2)
[2016-05-17 07:35] VITALS: BP 110/74; RESP 20
[2016-05-17] MEDS: NICOTINE (21 MG/24 HR) PATCH TRANSDERM SCH (09:00)
[2016-05-17] MEDS: SODIUM HYPOCHLORITE 0.125% 473 ML BTL IRR SCH (09:00)
[2016-05-17] MEDS: CHLORDIAZEPOXIDE 25 MG CAP PO SCH ×2 (09:25→13:26)
[2016-05-17] MEDS: HEPARIN 5,000 UNIT/0.5 ML SYG SC SCH (09:27)
--- NOTE | 2016-05-17 10:53 | PN ---
Date/Time of Note Date/Time of Note DATE: 05/17/16 TIME: 10:51 Assessment/Plan Lines/Catheters IV Catheter Type (from [facility]): Saline Lock [facility] in Place (from [facility]): No Assessment/Plan Chief Complaint/Hosp Course 1. Right posterior hand and arm cellulitis and abscess 2nd skin popping of Meth s/p I&D 05/13. Cx MRSA. -antibiotics -warm compress -nutrition optimization -vit c 2. BMI 29. The patient is highly encouraged to optimize diet and exercise to improve his overall health status. 3. Drug abuse history. The patient is highly encouraged to seek rehab to improve his overall health. 4. Positive UA with possible UTI on admission, status post antibiotics. 5. Anemia without evidence of acute blood loss, continue monitoring. 6. History of psychiatric disorders with anxiety, ADHD and suicide attempt. Continue medical and psychiatric optimization. Thank you Problems: Subjective 24 Hr Interval Summary MRSA. No f/c/n/v. No cp/sob. No cough. No carter/dizzy/visual or neuro changes. No dysuria. No abdominal pain. Right arm pain improved. Exam/Review of Systems Vital Signs Vitals Vital Signs Date Time Temp Pulse Resp B/P Pulse Ox O2 Delivery O2 Flow Rate FiO2 05/17/16 07:35 97.6 20 110/74 94 05/16/16 22:32 105 Intake and Output 05/16/16 05/16/16 05/17/16 15:00 23:00 07:00 Intake Total 250 ml 1100 ml 840 ml Balance 250 ml 1100 ml 840 ml Exam Free Text/Dictation GENERAL: Obese, medicated, in no acute distress. HEENT: Pupils are sluggish and reactive. No scleral icterus. Mucous membranes are moist. NECK: Supple, no crepitus. Trachea midline, no JVD. PULMONARY: Normal respiratory effort. HEART: S1, S2 present and tachycardic. ABDOMEN: Soft, obese. EXTREMITIES: No edema. Right posterior arm and proximal wrist wound. Minimally tender VASCULAR: Capillary refill is 2 seconds. NEUROLOGIC: Arousable and moves all 4 extremities grossly. PSYCH: Responsive but keeps talking about low hope for his life in the next 10- 15years Results Result Diagram: 05/17/16 0435 05/17/16 0435 LAZARO QUIROS MD May 17, 2016 10:53
--- NOTE | 2016-05-17 12:34 | CONS ---
Date/Time of Note Date/Time of Note DATE: 05/17/16 TIME: 12:33 Assessment/Plan Assessment/Plan Chief Complaint/Hosp Course SUBJECTIVE: Sleeping, nad ANTIMICROBIALS: 1. Vancomycin. 2. Rocephin. PHYSICAL EXAMINATION: GENERAL: Well-developed, middle-aged white man who is alert, in no distress. HEENT: Head atraumatic, normocephalic. Sclerae anicteric. Buccal mucosa pink. NECK: Supple. CHEST: Rise symmetrical. Breath sounds clear. HEART: S1, S2. ABDOMEN: Soft. Bowel tones present. EXTREMITIES: right wrist dsg intact ASSESSMENT: 1. Right hand cellulitis==> s/p i&d 05/13/16===> resolved 2. Systemic inflammatory response syndrome secondary to right hand cellulitis. 3. Polysubstance abuse. 4. Obesity. 5. History of psychiatric problems. PLAN: Stable, ok dc off abx, apply topical Polysporin to wound BID for 7 days [facility] staff Problems: Consultation Date/Type/Reason Admit Date/Time May 07, 2016 at 17:59 Type of Consultation: ID Referring Provider: JONNATHAN CHRISTIANSON Exam/Review of Systems Vital Signs Vitals Vital Signs Date Time Temp Pulse Resp B/P Pulse Ox O2 Delivery O2 Flow Rate FiO2 05/17/16 07:35 97.6 20 110/74 94 05/16/16 22:32 105 Intake and Output 05/16/16 05/16/16 05/17/16 15:00 23:00 07:00 Intake Total 250 ml 1100 ml 840 ml Balance 250 ml 1100 ml 840 ml Results Result Diagram: 05/17/16 0435 05/17/16 0435 Results 24 hrs Laboratory Tests Test 05/17/16 04:35 White Blood Count 10.3 # Red Blood Count 4.75 Hemoglobin 14.6 Hematocrit 43.0 Mean Corpuscular Volume 90.5 Mean Corpuscular Hemoglobin 30.7 Mean Corpuscular Hemoglobin Concent 34.0 Red Cell Distribution Width 13.7 Platelet Count 367 Mean Platelet Volume 9.8 Neutrophils % 59.9 Lymphocytes % 28.4 Monocytes % 8.7 Eosinophils % 1.0 Basophils % 0.4 Nucleated Red Blood Cells % 0.0 Neutrophils # 6.2 Lymphocytes # 2.9 Monocytes # 0.9 Eosinophils # 0.1 Basophils # 0.0 Nucleated Red Blood Cells # 0.0 Sodium Level 141 Potassium Level 3.6 Chloride Level 103 Carbon Dioxide Level 27 Anion Gap 15 Blood Urea Nitrogen 17 Creatinine 1.04 Glucose Level 117 Calcium Level 9.6 Medications Medications Current Medications Ondansetron HCl (Zofran Inj) 4 mg Q6H PRN IV NAUSEA AND/OR VOMITING; Start at 20:30 Acetaminophen (Tylenol Tab) 650 mg Q6H PRN PO PAIN LEVEL 1-3 OR FEVER; Start at 20:30 Acetaminophen/ Hydrocodone Bitart ([place] (5/325)) 1 tab Q6H PRN PO MODERATE PAIN LEVEL 4-6 Last administered on 05/15/16 19:48; Admin Dose 1 TAB; Start at 20:30 Morphine Sulfate (morphine) 2 mg Q4H PRN IV SEVERE PAIN LEVEL 7-10 Last administered on 05/13/16 22:37; Admin Dose 2 MG; Start 05/07/16 at 20:30 Docusate Sodium (Colace) 100 mg Q12H PRN PO CONSTIPATION; Start 05/07/16 at 20: 30 Sodium Biphosphate/ Sodium Phosphate (Fleet Enema) 133 ml DAILY PRN [place] CONSTIPATION Last administered on 05/15/16 20:44; Admin Dose 133 ML; Start at 20:30 Pantoprazole (Protonix Tab) 40 mg DAILY@06 PO Last administered on 05/17/16 05 :42; Admin Dose 40 MG; Start 05/08/16 at 06:00 Heparin Sodium (Porcine) (Heparin (5000 Units/0.5 ml)) 5,000 unit Q12 SC Last administered on 05/17/16 09:27; Admin Dose 5,000 UNIT; Start 05/07/16 at 21:00 Hydralazine HCl (Apresoline) 10 mg Q6H PRN IV ELEVATED BLOOD PRESSURE; Start at 20:30 Clonidine (Catapres) 0.1 mg Q6H PRN PO ELEVATED BLOOD PRESSURE; Start 05/07/16 at 20:30 Nitroglycerin (Nitroglycerin (Sl Tab) 0.4 Mg) 1 tab Q5M PRN SL ANGINA; Start at 20:30 Gabapentin (Neurontin) 300 mg BID PO Last administered on 05/17/16 09:25; Admin Dose 300 MG; Start 05/07/16 at 21:00 Nortriptyline HCl (Aventyl) 75 mg HS PO Last administered on 05/15/16 20:44; Admin Dose 75 MG; Start 05/07/16 at 21:00 Olanzapine (Zyprexa) 10 mg QHS PO Last administered on 05/17/16 00:36; Admin Dose 10 MG; Start 05/07/16 at 21:00 Trazodone HCl (Desyrel) 150 mg QHS PO Last administered on 05/17/16 00:36; Admin Dose 150 MG; Start 05/07/16 at 21:00 Nicotine (Nicoderm 21 Mg/ 24hr) 1 patch DAILY TRANSDERM ; Start 05/09/16 at 16: 00 Chlordiazepoxide (Librium) 25 mg TID PO Last administered on 05/17/16 09:25; Admin Dose 25 MG; Start 05/09/16 at 18:00 Sodium Hypochlorite (Dakin'S (1/4 Strength)) 1 applic DAILY IRR Last administered on 05/16/16 08:38; Admin Dose 1 APPLIC; Start 05/13/16 at 23:30 Lorazepam (Ativan) 1 mg Q8H PRN PO anxiety,agitation Last administered on 05/16 22:32; Admin Dose 1 MG; Start 05/15/16 at 12:30 Trimethoprim/ Sulfamethoxazole (Bactrim (Ds)) 1 tab BID PO Last administered on 05/17/16 09:25; Admin Dose 1 TAB; Start 05/16/16 at 21:00; Stop 05/26/16 at 20:59 Temazepam (Restoril) 30 mg HS PRN PO INSOMNIA Last administered on 05/17/16 01 :49; Admin Dose 30 MG; Start 05/16/16 at 22:00 MAURIZIO CHRISTENSEN NP May 17, 2016 12:34
[2016-05-17] MEDS: LORAZEPAM 1 MG TAB PO PRN (12:47)
[2016-05-17] MEDS: HYDROCODONE/APAP (5/325) TAB PO PRN (13:26)
--- NOTE | 2016-05-17 14:35 | DS ---
Date/Time of Note Date/Time of Note DATE: 05/17/16 TIME: 14:29 Discharge Summary Admission/Discharge Info Admit Date/Time May 07, 2016 at 17:59 Discharge Date/Time Final Diagnosis 1. Right wrist/hand cellulitis.from IVDA, treated, follow up with PCP 2. Systemic inflammatory response syndrome secondary to right hand cellulitis. , improved 3. Polysubstance abuse. advise to quit 4. Obesity. 5. History of psychiatric problems. anxiety disorder, ativan prn Patient Condition: Stable Hospital Course A 55-year-old male with a past medical history of ADHD, anxiety and drug abuse, who presents with right hand pain. The patient states the swelling and pain have been going on for the last 2 days. It has been getting worse in intensity. He does admit to injecting methamphetamine into the area around the hand. He feels like he did not get the normal high that he normally gets and feels like he may have missed the artery and may have gone intramuscularly, and hence he has the right hand pain and swelling. No fever or chills, no upper or lower GI bleeding, no nausea or vomiting, no diarrhea, no constipation. Physical exam the right hand is red, swollen and tender to palpation on the dorsal aspect. Patient is diagnosed with cellulitis of right hand and forearm from IVDA injection. He is fully treated with antibiotics and had I&D on 2016. He is afebrile. No antibiotics is needed on discharge per ID. He will be followed up with his PCP and wound care for the wound. Home Meds Reported Medications Temazepam* (Restoril*) 30 Mg Capsule, 30 MG PO HS Y for INSOMNIA, CAP 05/07/16 Nortriptyline Hcl* (Nortriptyline Hcl*) 75 Mg Capsule, 75 MG PO HS, TAB 05/07/16 Trazodone Hcl* (Trazodone Hcl*) 150 Mg Tablet, 150 MG PO QHS, #30 TAB 05/07/16 Lorazepam* (Ativan*) 2 Mg Tablet, 2 MG PO TID, #60 TAB 05/07/16 Olanzapine* (Zyprexa*) 10 Mg Tablet, 10 MG PO QHS, #30 TAB 05/07/16 Discontinued Reported Medications Gabapentin* (Gabapentin*) 300 Mg Capsule, 300 MG PO BID, #60 CAP 05/07/16 Follow-up Plan PCP in 2 weeks Wound care Pending Labs Laboratory Tests Test 05/17/16 04:35 White Blood Count 10.310^3/ul (4.8-10.8) Red Blood Count 4.7510^6/ul (4.70-6.10) Hemoglobin 14.6g/dl (14.0-18.0) Hematocrit 43.0% (42.0-52.0) Mean Corpuscular Volume 90.5fl (82.0-101.0) Mean Corpuscular Hemoglobin 30.7pg (29.0-33.0) Mean Corpuscular Hemoglobin Concent 34.0g/dl (32.0-37.0) Red Cell Distribution Width 13.7% (11.5-14.5) Platelet Count 18810^3/UL (140-415) Mean Platelet Volume 9.8fl (7.4-10.4) Neutrophils % 59.9% (39.0-77.0) Lymphocytes % 28.4% (15.0-51.0) Monocytes % 8.7% (0.0-11.0) Eosinophils % 1.0% (0.0-7.0) Basophils % 0.4% (0.0-2.0) Nucleated Red Blood Cells % 0.0/100WBC (0.0-0.0) Neutrophils # 6.210^3/ul (1.6-7.5) Lymphocytes # 2.910^3/ul (0.8-2.9) Monocytes # 0.910^3/ul (0.3-0.9) Eosinophils # 0.110^3/ul (0.0-0.5) Basophils # 0.010^3/ul (0.0-0.1) Nucleated Red Blood Cells # 0.010^3/ul (0.0-0.0) Sodium Level 141mmol/L (135-144) Potassium Level 3.6mmol/L (3.5-5.1) Chloride Level 103mmol/L (97-110) Carbon Dioxide Level 27mmol/L (21-31) Anion Gap 15 (8-16) Blood Urea Nitrogen 17mg/dl (7-20) Creatinine 1.04mg/dl (0.61-1.24) Glucose Level 117mg/dl (70-220) Calcium Level 9.6mg/dl (8.4-10.2) GIULIANA MONTOYA MD May 17, 2016 14:34
[2016-05-17 20:01] VITALS: BP 102/57; RESP 21
== END 2016-05-17 21:06 | disposition left against medical advice (07) | DRG 872 ==
LOC: E/R 15:07 → PP2 17:59
PROVIDERS: ADMIT Internal Medicine; ATTEND Internal Medicine
PROC: 0H9FXZZ Drainage of Right Hand Skin, External Approach (ICD-10-PCS; principal; 2016-05-14)
DX: A41.9 Sepsis, unspecified organism (principal); F15.10 Other stimulant abuse, uncomplicated; L03.113 Cellulitis of right upper limb; F90.1 Attention-deficit hyperactivity disorder, predominantly hyperactive type; F41.9 Anxiety disorder, unspecified; F17.200 Nicotine dependence, unspecified, uncomplicated; F29 Unspecified psychosis not due to a substance or known physiological condition; E66.9 Obesity, unspecified; Z68.29 Body mass index [BMI] 29.0-29.9, adult; D64.9 Anemia, unspecified
CPT/HCPCS: 36415; 80048; 80053; 80061; 80202; 81001; 81003; 83036; 83605; 83735; 84100; 84439; 84443; 84484; 85025; 85610; 85730; 87040; 87070; 87081; 96365; 96375; J0692; J0696; J1644; J2060; J2270; J3370; J7030; J7050